=== PATIENT | female | born 1990 | race Caucasian/White ===

== ENCOUNTER 2016-06-15 13:09 | Inpatient (IN) | payer SELFPAY ==
[~2016-06-15 13:09] MED LIST: XYLOCAINE-MPF 2% ONE
[2016-06-15] MEDS ORDERED: NS 1,000 ML IV ONE (14:05)
[2016-06-15 14:06] LABS: HEMATOCRIT 37.3 % (37.0-47.0); HEMOGLOBIN 12.7 g/dL (12.0-16.0); MANUAL DIFF NEEDED? YES; MCH 32.4 PG (27-31); MCV 95.2 FL (81-99); MPV 11.6 FL (7.4-10.4); PLT 82 X1000 (130-400); RBC 3.92 XMIL (4.2-5.4)
[2016-06-15 14:08] LABS: BANDS 26 % (0-1); LYMPHS 2 % (21-51); NRBC 1 % (0-0)
[2016-06-15 14:14] LABS: CALCIUM 9.4 mg/dL (8.8-10.2)
[2016-06-15 15:17] LABS: ALBUMIN 4.1 g/dL (3.5-5.0); POTASSIUM 4.1 mmol/L (3.5-5.1); TOTAL BILIRUBIN 0.34 mg/dL (0.20-1.00); TOTAL PROTEIN 8.9 g/dL (6.3-8.3)
[2016-06-15 15:33] LABS: URINE SOURCE CLEAN CATCH
[2016-06-15 15:48] LABS: BILIRUBIN URINE SMALL (NEGATIVE); BLOOD URINE TRACE (NEGATIVE); COLOR YELLOW; GLUCOSE URINE NEGATIVE (NEGATIVE); LEUKOCYTES URINE NEGATIVE (NEGATIVE); NITRITE URINE NEGATIVE (NEGATIVE); PH URINE 5.5; PROTEIN URINE 50 mg/dL (NEGATIVE); SP GRAVITY URINE 1.038; TURBIDITY URINE HAZY (CLEAR); URINE MICRO REVIEW NEEDED? YES; UROBILINOGEN URINE 4 mg/dL (NORMAL)
[2016-06-15 15:56] LABS: UR EPITHELIAL CELLS >10 /HPF (<10); URINE BACTERIA 3+ /HPF; URINE CULTURE NEEDED? YES
[2016-06-15] MEDS ORDERED: ROCEPHIN 1 GM/NS 50 ML IV ONE (15:58)
[2016-06-15 16:11] LABS: URINE CASTS GRANULAR PRESENT
--- NOTE | 2016-06-15 16:55 | PROVIDER DOCUMENTATION ---
HPI-Abdominal Pain/GI Problem - General Chief Complaint: Abdominal Pain Stated Complaint: GENERALIZED PAIN Time Seen by Provider: 06/15/16 15:45 Source: patient Allergies/Adverse Reactions: Patient Allergies Allergy/AdvReac Type Severity Reaction Status Date / Time ketorolac tromethamine * Allergy HIVES Verified 06/15/16 16:01 [From Toradol] meperidine HCl * Allergy ANAPHYLAXIS Verified 06/15/16 16:01 [From Demerol] metoclopramide HCl * Allergy ANAPHYLAXIS Verified 06/15/16 16:01 [From Reglan] morphine Allergy HIVES Verified 06/15/16 16:01 ondansetron HCl * Allergy ANAPHYLAXIS Verified 06/15/16 16:01 [From Zofran (as hydrochloride)] nalbuphine HCl * AdvReac NAUSEA/VOMI Verified 06/15/16 16:01 [From Nubain] TING Home Medications: Alprazolam [Xanax] 1 mg PO BID 06/15/16 Clonidine [Catapres] 0.3 mg PO TID 06/15/16 Dasatinib [Sprycel] 100 mg PO QAM 06/15/16 Divalproex [Depakote] 500 mg PO BID 06/15/16 Gabapentin [Neurontin] 600 mg PO TID 06/15/16 Tramadol [Ultram] 50 mg PO TID 06/15/16 - History of Present Illness-ABD Nature of Presenting Problems: Pt is 26 y/o F presents to the ED with LUQ and LLQ pain. Pt states N but no V. 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 Pt states taking chemo pills for 4 years. Pt states pain has been present for 2 days. Abdominal Pain Onset Location: reports: LUQ, LLQ Pain Radiation: reports: no radiation Quality of Pain: reports: cramping Severity in ED: reports: moderate Onset/Duration: reports: 2 days ago Timing: reports: still present, intermittent Activities at Onset: reports: light activity Exposure to sick contacts?: No Modifying Factors: improves with: nothing Associated Symptoms: reports: loss of appetite, nausea, weakness. denies: anxiety, arm pain, back/neck pain, chest pain, constipation, cough, diaphoresis , diarrhea, dizziness, EENT symptoms, fatigue, fever/chills, genitourinary problems, headaches, heartburn, joint pain, malaise, muscle aches, sinus congestion/drainage, rash, seizure, shortness of breath, sensory/motor loss, pain with inspiration, swelling/mass in abdomen, syncope, vomiting, trouble walking Last BM: unsure Dark Stools Present?: reports: none noticed Rectal Bleeding: reports: none Rectal Pain: reports: none Emesis Description: reports: none Bruising or Bleeding Gums?: No Similar Symptoms Previously?: Yes Recently seen or treated by another doctor?: No Review of Systems - Adult - REVIEW OF SYSTEMS - ADULT Constitutional: denies: chills, fever Eyes: denies: blurred vision, double vision Ears, Nose, Mouth & Throat: denies: ear pain, nose pain, throat pain Cardiovascular: reports: irregular heart rate (tachy). denies: chest pain, heart murmur Respiratory: denies: cough, shortness of breath, wheezing Gastrointestinal: reports: abdominal pain (LUQ and LLQ), nausea, poor appetite. denies: diarrhea, vomiting Genitourinary: denies: dysuria, hematuria Musculoskeletal: denies: bone pain, joint pain, neck pain Integumentary: denies: hives, itching Neurological: denies: dizziness/vertigo, headache/migraines Psychiatric: reports: no symptoms reported Endocrine: reports: no symptoms reported Hematologic/Lymphatic: reports: no symptoms reported Allergic/Immunologic: reports: no symptoms reported All Other Systems: Reviewed and Negative Past History - Adult - PAST MEDICAL HISTORY-ADULT Review of Records: reports: Nursing Assessment Review, Medications Reviewed, Social history reviewed & non-contributory. Major Childhood Illnesses: reports: denies history Cardiovascular: reports: HTN Respiratory: reports: denies history Gastrointestinal: reports: denies history Obstetrical/Gynecological: reports: ovarian cysts Genitourinary: reports: kidney disease (congenital missing right kidney) Musculoskeletal: reports: denies history Neurological: reports: Seizures/Epilepsy Psychiatric: reports: depression Endocrine/Immune: reports: Diabetes, Leukemia (CML) Other Conditions: reports: denies history - PRIOR SURGERIES/PROCEDURES Surgical/Procedure History: reports: appendectomy, tonsillectomy, other (BONE MARROW BIOPSY) - IMMUNIZATION STATUS Childhood Immunizations: See Nurse Assessment Flu Vaccine: See Nurse Assessment - FAMILY HISTORY Family History: reviewed, not pertinent - SOCIAL HISTORY Smoking: cigarettes, less than 1 pack/day Provider spent 3-5 mins advising pt. on dangers of tobacco.: Discussed manners to quit use, and f/u contacts for add'l counseling. Substance Use: denies Living Situation: family Physical Exam-General - PHYSICAL EXAM-ADULT Initial Vital Signs Reviewed: Yes - CONSTITUTIONAL General Appearance: appears well, alert, moderate distress - EYES Eyes: PERRL/EOMI, pink conjunctivae - HEAD, EARS, NOSE, MOUTH & THROAT HENMT: normocephalic/atraumatic, moist mucous membranes, normal ENT inspection - NECK Neck: non-tender, full range of motion, supple, normal inspection - RESPIRATORY Respiratory: chest non-tender, lungs clear, normal breath sounds - CARDIOVASCULAR Cardiovascular: normal peripheral pulses, no edema, tachycardia - GASTROINTESTINAL (ABDOMEN) Abdominal Exam: normal bowel sounds, soft, tenderness (LUQ and LLQ) - LYMPHATIC Lymphatic: no adenopathy - MUSCULOSKELETAL Back Exam: normal inspection, no CVA tenderness, no vertebral tenderness Extremity: normal range of motion, non-tender, normal gait - SKIN Integumentary: normal color, normal turgor, warm/dry - NEUROLOGIC Neurologic: 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 II-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 nml as tested, grossly normal, no motor/sensory deficits - PSYCHIATRIC Psych/Mental Status: normal mood/affect, normal thought content, normal thought process, oriented x 3 Progress - PLAN OF CARE/RESULTS Progress/Plan/Lab Results: Laboratory Tests 06/15/16 06/15/16 06/15/16 13:37 13:37 15:27 WBC 497.52 H* RBC 3.92 L Hgb 12.7 Hct 37.3 MCV 95.2 MCH 32.4 H MCHC 34.0 RDW Std Deviation 18.2 H Plt Count 82 L MPV 11.6 H Neut % (Auto) Not Reportable Lymph % (Auto) Not Reportable Gaston % (Auto) Not Reportable Eos % (Auto) Not Reportable Baso % (Auto) Not Reportable Neut # Not Reportable Lymph # Not Reportable Gaston # Not Reportable Eos # Not Reportable Baso # Not Reportable Segmented Neutrophils 14 L Band Neutrophils 26 H Lymphocytes 2 L Metamyelocytes 14.0 Myelocytes 18.0 Nucleated RBCs 1 H Pathologist Review Unidentified Cells 26.0 Sodium 138 Potassium 4.1 Chloride 98 Carbon Dioxide 19 L Anion Gap 21 BUN 16 Creatinine 1.2 H Estimated GFR/1.73 m2 54 BUN/Creatinine Ratio 13 Glucose 96 Calculated Osmolality 277 Calcium 9.4 Total Bilirubin 0.34 AST 30 ALT 13 Alkaline Phosphatase 112 H Total Protein 8.9 H Albumin 4.1 Globulin 4.8 Albumin/Globulin Ratio 0.9 Amylase 30 Lipase 9 L Urine Source CLEAN CATCH Urine Color YELLOW Urine Turbidity HAZY Urine pH 5.5 Ur Specific Dahlen 1.038 Urine Protein 50 A Ur Glucose (Stick) NEGATIVE Ur Ketones (Stick) TRACE A Urine Blood TRACE A Urine Nitrite NEGATIVE Urine Bilirubin SMALL A Urobilinogen Dipstick 4 A Urine Leukocytes NEGATIVE Urine WBC (Auto) 10-20 A Urine RBC (Auto) 10-20 A U Epithel Cells (Auto) >10 A Urine Bacteria (Auto) 3+ Urine Crystals Not Reportable Small Round Cells Not Reportable Urine Casts GRANULAR PRESENT Urine Yeast-like Cells Not Reportable Urine Test 06/15/16 15:27 WBC RBC Hgb Hct MCV MCH MCHC RDW Std Deviation Plt Count MPV Neut % (Auto) Lymph % (Auto) Gaston % (Auto) Eos % (Auto) Baso % (Auto) Neut # Lymph # Gaston # Eos # Baso # Segmented Neutrophils Band Neutrophils Lymphocytes Metamyelocytes Myelocytes Nucleated RBCs Pathologist Review Unidentified Cells Sodium Potassium Chloride Carbon Dioxide Anion Gap BUN Creatinine Estimated GFR/1.73 m2 BUN/Creatinine Ratio Glucose Calculated Osmolality Calcium Total Bilirubin AST ALT Alkaline Phosphatase Total Protein Albumin Globulin Albumin/Globulin Ratio Amylase Lipase Urine Source Urine Color Urine Turbidity Urine pH Ur Specific Dahlen Urine Protein Ur Glucose (Stick) Ur Ketones (Stick) Urine Blood Urine Nitrite Urine Bilirubin Urobilinogen Dipstick Urine Leukocytes Urine WBC (Auto) Urine RBC (Auto) U Epithel Cells (Auto) Urine Bacteria (Auto) Urine Crystals Small Round Cells Urine Casts Urine Yeast-like Cells Urine Test NEGATIVE Orders Category Date Time Status IV [Saline Loc] NOW Care 06/15/16 14:05 Active Saline Loc DIRECTED Care 06/15/16 13:25 Active NPO Diet 06/15/16 13:[address] ABD/PELVIS W/ IV CONT ONLY [CT] Stat Exams 06/15/16 14:03 Ordered AMYLASE [CHEM] Stat Lab 06/15/16 13:37 Completed CBC WITH ELECTRONIC DIFF [HEME] Stat Lab 06/15/16 13:37 Completed COMPREHENSIVE METABOLIC PANEL [CHEM] Stat Lab 06/15/16 13:37 Completed LIPASE [CHEM] Stat Lab 06/15/16 13:37 Completed TEST-URINE [PREG] Stat Lab 06/15/16 15:27 Completed URINALYSIS W/POSS RFLX CULT [URINALYSIS] Stat Lab 06/15/16 15:27 Completed URINE MANUAL MICROSCOPIC [URINALYSIS] Stat Lab 06/15/16 15:27 Completed 0.9% Sodium Chloride Inj [Ns] 1,000 ml Med 06/15/16 14:05 Discontinued IV 999 mls/hr CefTRIAXONE 1 GM/NS [Rocephin 1 gm/Ns] 50 ml Med 06/15/16 15:58 Discontinued IV NOW Vital Signs - 24 hr 06/15/16 13:23 Temperature 98.5 F Pulse Rate 131 H Respiratory 20 Rate Blood Pressure 137/89 O2 Sat by Pulse 98 Oximetry - CT/MRI 1 CT Study: Abdomen, Pelvis Impression: Abnormal CT Results: constipation, improved splenomegally since 06/28/2015 - CONSULTS/PCP/HOSPITALIST Notification #1 *Consult/PCP/Hospitalist*: Dr. Rico Time Discussed: 17:08 (Dr. Rico accept admit ) Reason/Comments: Dr. Cobos consults with Dr. Rico about admit of PT Consult Disposition: Admit Departure - Departure Time of Disposition Order: 16:59 DIAGNOSIS: Dehydration Leukemia Qualifiers: Leukemia type: unspecified Leukemia Active/Remission status: without remission Qualified Code(s): C95.90 - Leukemia, unspecified not having achieved remission UTI (urinary tract infection) Qualifiers: Urinary tract infection type: site unspecified Hematuria presence: without hematuria Qualified Code(s): N39.0 - Urinary tract infection, site not specified Increased white blood cell count Qualifiers: Leukocytosis type: unspecified Qualified Code(s): D72.829 - Elevated white blood cell count, unspecified Disposition: ADMITTED INPATIENT 09 Certified Medical Emergency: Emergent Condition: Stable Additional Instructions: ED Follow Up Instructions: You have been treated by a care provider in the Emergency Department. These instructions are being provided to you so you can have an understanding of how to care for yourself upon discharge. Upon discharge from the Emergency Department, you are responsible for making arrangements for follow-up care by a physician of your choice. Take all prescribed medications as directed. Return to the Emergency Department immediately for any new or worsening symptoms. You may call the Physician Referral phone number at [phone] to obtain a list of Physicians who are taking new patients. Referrals: None,PCP [Primary Care Provider] - Attestation - Scribe Verification/Attestation Scribe:: Abbey Edwards Acting as Scribe for:: Hillary Cobos Scribe documention review:: This chart was documented by a scribe and accurately reflects the service the provider performed and the decisions made by the provider.
[2016-06-15] MEDS ORDERED: PHENERGAN IV ONE (17:01)
[2016-06-15] MEDS ORDERED: SODIUM CHLORIDE 0.9% INJ ONE (17:01)
[2016-06-15] MEDS ORDERED: PHENERGAN ONE (17:02)
[2016-06-15] MEDS ORDERED: DILAUDID IV ONE (17:33)
[2016-06-15] MEDS ORDERED: DILAUDID ONE (17:34)
[2016-06-15] MEDS ORDERED: PHENERGAN IV PRN (18:32)
[2016-06-15] MEDS ORDERED: SODIUM CHLORIDE 0.9% INJ PRN (18:32)
[2016-06-15] MEDS ORDERED: RELISTOR SUBQ ONE (18:36)
[2016-06-15 19:08] LABS: INR 1.14; PROTIME 12.1 Seconds (9.2-11.7)
[2016-06-15 19:15] LABS: MAGNESIUM 2.5 mg/dL (1.5-2.7)
[2016-06-15] MEDS: OFIRMEV 1000 MG/ISOTONIC SOLN 100 ML IV SCH (19:20)
[2016-06-15] MEDS: NS 1,000 ML IV SCH (19:20)
--- NOTE | 2016-06-15 19:30 | Diag Imaging Result Document ---
PROCEDURE NAME: CT ABD/PELVIS W/ IV CONT ONLY - 06/15/2016 FINDINGS: There is minimal subsegmental atelectasis present in the lung bases. This is actually improved in some respect since the previous study of 07/04/2015. The spleen is enlarged measuring over 16cm in dimension. This is actually improved from the almost 18 cm seen on 07/04/2015. There is a fair amount of stool present in the colon. The adrenal glands, pancreas, and left kidney are stable in appearance. There is no evidence of cholelithiasis. There is no evidence of abdominal aortic aneurysm and the mesenteric arteries are patent. The liver is unremarkable in appearance. CT CT of the pelvis with intravenous contrast: There has been previous appendectomy. There is solid stool in the rectum. There are surgical clips on the right side of the pelvis. There is a left ovarian cyst measuring 3.8 cm in diameter. This is slightly larger than the cyst present on the previous study of 06/28/2015, which was 2.8 cm in greatest dimension. There is no significant free fluid. IMPRESSION: 1. Constipation. 2. Improved splenomegaly. [facility]
--- NOTE | 2016-06-15 19:34 | Diag Imaging Result Document ---
PROCEDURE NAME: CHEST-PORTABLE - 06/15/2016 PROCEDURE TIME: 17:20 hours FINDINGS: Normal chest.
[2016-06-15] MEDS: MAXIPIME 1 GM/NS 50 ML IV SCH (20:00)
--- NOTE | 2016-06-15 20:04 | PROGRESS NOTE ---
DATE: 06/15/2016 PRIMARY CARE PHYSICIAN: None. HEMATOLOGY/ONCOLOGY: Used to be Jimmie Weinstein MD. PRESENTING COMPLAINT: Abdominal pain, nausea and vomiting. HISTORY OF PRESENTING COMPLAINT: Ms. Maurice is a 26-year-old female, with a diagnosis of CML who used to follow up with Dr. Weinstein until about just 5 months ago she left to [place] where according to her she was admitted in to the [facility] in the month of April. Subsequently she was able to see Dr. Berman, but she could not get an outpatient follow up with Dr. Berman who is a research psychologist-oncologist before she moved back here to [place] with her sisters just about a week ago. According to her, since she moved back she has been having ongoing epigastric to lower abdomen pain which has been excruciating for the past 2 days on and off. There is not any alleviating symptoms. Patient refers that the pain is always 10/10. Associated with that there is also some nausea and vomiting constantly according to her. She denies any fever and she also says she has burning when she passes her urine. PAST MEDICAL HISTORY: 1. Chronic myeloid leukemia diagnosed in 2012. 2. Hypertension. 3. Depression. 4. Ovarian cyst. 5. Fibromyalgia. 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 PREVIOUS SURGERY: 1. Tonsillectomy. 2. Bone marrow aspirations. 3. Appendectomy. 4. PICC line placement and removals. ALLERGIES: Toradol, Demerol, Reglan, Zofran and Nubain. MEDICATIONS AT HOME: 1. Depakote. 2. Alprazolam. 3. Tramadol. 4. Gabapentin. 5. Catapres. 6. Sprycel. SOCIAL HISTORY: Patient used to live with her grandparents, but she is currently living with her sisters. She used to smoke 1-1/2 pack cigarettes per day for over 10 years but is down to about a half a pack a day. Denies any current illicit drug use. However, she has tried cocaine and weed before. FAMILY HISTORY: Unremarkable. REVIEW OF SYSTEMS: 12 point review of system conducted with the patient. Unremarkable except what we have in the HPI. Specifically the patient denies any fever, any chills, any sore throat, any cough or sputum production or any chest pain. PHYSICAL EXAMINATION: General: Ms. Maurice is a 26-year-old female. She is in bed. She did not seems to be in any distress. Vitals: Blood pressure is 137/89, pulse of 131, respirations 20, temperature 98.5 degrees. HEENT: Mucosa is dry, anicteric and acyanotic. Neck: Supple. Chest: Clear. Cardiovascular: Regular rate and rhythm. Abdomen: Soft, is mildly tender in the lower left quadrant. Extremities: No pedal edema. No hepatosplenomegaly. ALTERATION HAND: Patient is alert and oriented. Cranial nerves 2-12 are grossly examined, unremarkable. Cortical function seems to be intact. Reflexes and power bilaterally normal. LABORATORY DATA: WBC is 497.5, hemoglobin is 12.7, platelet count is 82,000. There is 4% of neutrophils. 26% of bands. Lymphocyte is 2%. Metamyelocyte is 14, myelocyte is 18. IMAGING STUDIES: A chest x-ray has been done, is unremarkable. We are still pending official report on that. A CT scan of the abdomen and pelvis shows constipation as well as absence of the right kidney, but no obvious obstruction. We are still pending official report on this. ASSESSMENT: Ms. Maurice is a 26-year-old female, with a history of chronic myeloid leukemia who presented with abdominal pain, nausea and vomiting. 1. Chronic myelogenous leukemia, probably in accelerated versus blast phase. 2. Intractable abdominal pain. 3. P.O. intolerance. 4. History of hypertension. 5. Depression. 6. Suspected urinary tract infection. 7. Severe constipation, likely due to narcotic gut. 8. Chronic pain syndrome. PLAN: 1. We are going to admit the patient to the medical floor. Aggressive hydration, we will blood culture the patient, we will start the patient empirically on antibiotics to prevent any infection since these plentiful white cells are actually very defective and they might not be protecting her. We will consult Hematology/Oncology, specifically Dr. Parisi who is the one that the patient has requested to evaluate her. If she is able to tolerate p.o. we will give her Sprycel. 2. We will address her constipation with symptomatic management. We will also give a dose of naproxen.
[2016-06-15] MEDS: XANAX PO SCH (20:20)
[2016-06-15] MEDS: MIRALAX PO SCH (20:20)
[2016-06-15] MEDS: CATAPRES PO SCH (20:23)
[2016-06-16] MEDS: OFIRMEV 1000 MG/ISOTONIC SOLN 100 ML IV SCH ×2 (00:29→05:46)
[2016-06-16] MEDS: DILAUDID IV PRN ×5 (00:40→20:02)
[2016-06-16] MEDS: NS 1,000 ML IV SCH ×3 (04:06→18:33)
[2016-06-16 07:21] LABS: AGAP 10; ALBUMIN 3.6 g/dL (3.5-5.0); ALKALINE PHOSPHATASE 84 U/L (32-104); BUN 12 mg/dL (8-22); CALCIUM 8.3 mg/dL (8.8-10.2); CHLORIDE 106 mmol/L (98-107); COSMO 277; GOT 25 U/L (10-30); GPT 14 U/L (10-36); POTASSIUM 3.2 mmol/L (3.5-5.1); SODIUM 139 mmol/L (136-145); TCO2 24 mmol/L (25-35); TOTAL PROTEIN 6.9 g/dL (6.3-8.3)
[2016-06-16 07:46] LABS: HEMATOCRIT 34.1 % (37.0-47.0); HEMOGLOBIN 11.3 g/dL (12.0-16.0); MANUAL DIFF NEEDED? YES; MCH 31.8 PG (27-31); MCHC 33.1 g/dL (33-37); MCV 96.1 FL (81-99); MPV 10.7 FL (7.4-10.4); PLT 58 X1000 (130-400); RBC 3.55 XMIL (4.2-5.4)
[2016-06-16 08:00] LABS: INR 1.17 (0.86-1.15); PROTIME 15.2 Seconds (12.1-15.5)
[2016-06-16] MEDS ORDERED: CATAPRES PO SCH (08:00)
[2016-06-16 08:01] LABS: PTT PL 29.2 Seconds (22.6-43.9)
[2016-06-16] MEDS ORDERED: SPRYCEL PO SCH ×2 (09:00→09:15)
[2016-06-16] MEDS ORDERED: NEURONTIN PO SCH (09:00)
[2016-06-16] MEDS: MIRALAX PO SCH (09:01)
[2016-06-16] MEDS: XANAX PO SCH ×3 (09:01→20:02)
[2016-06-16] MEDS: CATAPRES PO SCH ×4 (09:01→20:01)
[2016-06-16 09:27] LABS: BANDS 13 % (0-1); EOS 4 % (1-10); LYMPHS 1 % (21-51); MONO 4 % (1-9); NRBC 1 % (0-0)
[2016-06-16] MEDS: MAXIPIME 1 GM/NS 50 ML IV SCH ×3 (10:00→20:00)
[2016-06-16] MEDS: NEURONTIN PO SCH ×3 (10:32→18:02)
[2016-06-16] MEDS ORDERED: OFIRMEV 1000 MG/ISOTONIC SOLN 100 ML IV SCH (12:45)
[2016-06-16 14:12] LABS: FLOW CYTOMETERY SOURCE WHOLE BLOOD; LEUKEMIA LYMPHOMA BY FLOW REFERRED FOR TESTING
[2016-06-16] MEDS: PHENERGAN IV PRN (16:19)
[2016-06-16] MEDS: SODIUM CHLORIDE 0.9% INJ PRN (16:19)
--- NOTE | 2016-06-16 16:58 | PROGRESS NOTE ---
DATE: 06/16/2016 SUBJECTIVE: The patient is still complaining of pain. She is on pain medicine every 4 hours. No other focal complaints. OBJECTIVE: Vital Signs: Blood pressure 151/95, heart rate 107, respiratory rate 18, temperature 98.1 degrees. General: A well-developed female in no acute distress. Head Examination: Normocephalic, atraumatic. Eye Examination: Pupils equal, round, reactive to light. Extraocular movements were intact. Ear, nose, throat Examination: Moist mucous membranes. Neck Examination: Supple. Cardiovascular examination: Regular rate and rhythm. No murmurs, gallops, or rubs. Pulmonary examination: Bilateral breath sounds, clear to auscultation. Gastrointestinal: Soft, nontender, nondistended. Bowel sounds are positive. PROBLEM LIST: 1. Accelerated versus blast crisis of CML. We are continuing hydration. She is on Sprycel. Dr. Parisi is following at this point. She may not need a bone marrow biopsy to evaluate for blast crisis but we will monitor for the next day or 2. Flow cytometry is pending. BCR-ABL gene mutation is pending. 2. UTI. Continue antibiotics. 3. Constipation. Continue bowel regimen. We will continue to follow very closely.
--- NOTE | 2016-06-16 17:12 | CONSULTATION ---
DATE OF CONSULTATION: 06/16/2016 REASON FOR CONSULTATION: Leukemia. Patient seen in consultation at request of Dr. Estrada. HISTORY OF PRESENT ILLNESS: Debora is a 25-year-old, woman who is known to Dr. Weinstein for a history of CML. She had been down to [place] earlier in 2015 and returned to this area to be with her sister's within the past week. Apparently she was hospitalized in [place] in April and never got the patient follow up with a doctor there. Upon questioning, she reports that she has been taking her Sprycel approximately 1/3 of the time because of associated nausea and abdominal pain when she takes her medications. She presented to the emergency room with fevers and dysuria and was found to have a urinary tract infection for which she is being treated currently. She also noted fevers, chills, night sweats, weight loss, and increased fatigue at home over the last few weeks. PAST MEDICAL HISTORY: Notable for depression, hypertension and CML. SURGICAL HISTORY: Notable for multiple bone marrow biopsies as well as a tonsillectomy. SOCIAL HISTORY: Patient is a smoker, has recently moved back to the area to be with her sister's. She denied alcohol or illicit drug use. FAMILY HISTORY: Noncontributory. ALLERGIES: Reviewed per the chart and notable for morphine, Demerol, Toradol, Reglan, Zofran and Nubain. MEDICATIONS: Reviewed per the chart as well. REVIEW OF SYSTEMS: Pertinent positives and negatives as per HPI. All other review of systems are negative. PHYSICAL EXAMINATION: Vital signs: At the time of consultation, the patient temperature was 98.5 degrees, pulse 71, respiratory rate 18, blood pressure 151/95, O2 saturation 98 % on room air. General: This is a chronically ill-appearing, woman who is in no acute distress, but is diaphoretic and appears older than her stated age. HEENT: Normocephalic, atraumatic. Pupils equal, round, react to light. Extraocular movements intact. Oropharynx is dry. Neck: Supple and symmetric with no lymphadenopathy. Cardiovascular: Regular rate and rhythm. Normal S1, S2. No murmurs, rubs, or gallops. Pulmonary: Lungs are clear to auscultation anteriorly bilaterally without wheezes, rales, or rhonchi. GI: Abdomen is soft, tender in the left upper quadrant with notable splenomegaly approximately 6 cm below the costal margin. Extremities: No clubbing, cyanosis, or edema. 2+ pulses x4. Neurologic: Alert orient x3. No focal deficit. LABORATORY DATA: At this time of consultation that was available, showed a white count that had dropped down from 450,000 to 342.000 overnight. Hemoglobin 11.3, platelet count 58,000. INR 1.17. Differential on the CBC showed 32% segmentals, 13% bands, 1% lymphocytes , 4% monocyte, 4% eosinophils, 6% metamyelocytes, 35% myelocytes. Urine culture positive for gram -negative rods. ASSESSMENT AND PLAN: this is a 25-year-old woman with: 1. Chronic myeloid leukemia. I discussed with her the overall poor prognosis of inadequately treated chronic myeloid leukemia. It is unclear whether she is in chronic phase untreated versus blast phase or accelerated stage. She understands that she will need a bone marrow biopsy, but wishes to defer that at this time. I will send PCR for bcr-abl at this time as well as flow cytometry. I will not send mutation testing at this time as she has not been taking her medications adequately. We will start her on allopurinol and Hydrea to manage her leukocytosis if her platelet count will allow. 2. Urinary tract infection. She continues on antibiotics at this time. Monitor for improvement in her symptoms. 3. Social situation with difficulty with medications. We will consult social welfare research worker. 4. Nausea. She will continue on antibiotics at this time and we will have a prescription for Compazine and Phenergan at discharge to use as needed. Again, I stressed the importance of taking her medication and establishing followup for her chronic myeloid leukemia. We will follow along and make further recommendations as hospital course dictates. [facility]
[2016-06-16] MEDS: NICODERM PATCH TD PRN (18:28)
[2016-06-16] MEDS: SODIUM CHLORIDE 0.9% INJ SCH (18:28)
[2016-06-16] MEDS: PROTONIX IV SCH (18:28)
[2016-06-17] MEDS: PHENERGAN IV PRN ×2 (02:09→17:16)
[2016-06-17] MEDS: DILAUDID IV PRN ×6 (02:10→21:29)
[2016-06-17] MEDS: SODIUM CHLORIDE 0.9% INJ SCH ×2 (02:10→17:03)
[2016-06-17] MEDS: NS 1,000 ML IV SCH ×4 (04:05→17:12)
[2016-06-17 06:45] LABS: EOS# 4.87 X1000 (0.0-0.7); EOS% 1.4 % (0.0-10.0); HEMATOCRIT 29.8 % (37.0-47.0); LYMPH# 13.15 X1000 (1.2-3.4); LYMPH% 3.8 % (20.5-51.1); MANUAL DIFF NEEDED? YES; MCH 31.9 PG (27-31); MCHC 33.6 g/dL (33-37); MCV 95.2 FL (81-99); MONO% 8.6 % (1.7-9.3); MPV 10.3 FL (7.4-10.4); PLT 58 X1000 (130-400); RBC 3.13 XMIL (4.2-5.4)
[2016-06-17 06:56] LABS: AGAP 10; BUN 10 mg/dL (8-22); CALCIUM 8.2 mg/dL (8.8-10.2); CHLORIDE 108 mmol/L (98-107); COSMO 279; POTASSIUM 3.2 mmol/L (3.5-5.1); SODIUM 140 mmol/L (136-145); TCO2 22 mmol/L (25-35)
[2016-06-17] MEDS: NEURONTIN PO SCH ×3 (09:06→17:03)
[2016-06-17] MEDS: CATAPRES PO SCH ×3 (09:06→21:30)
[2016-06-17] MEDS: XANAX PO SCH ×2 (09:07→21:30)
[2016-06-17] MEDS: MAXIPIME 1 GM/NS 50 ML IV SCH ×2 (09:07→21:29)
[2016-06-17] MEDS: MIRALAX PO SCH (09:07)
[2016-06-17] MEDS: PATIENT'S OWN MED PO SCH (09:07)
[2016-06-17 09:16] LABS: BANDS 15 % (0-1); EOS 3 % (1-10); LYMPHS 4 % (21-51); MONO 1 % (1-9); NRBC 2 % (0-0)
[2016-06-17] MEDS ORDERED: SENSORCAINE-MPF 0.5%/EPI 1:200,000 INJ ONE (12:22)
[2016-06-17] MEDS: ZYLOPRIM PO SCH ×2 (13:37→21:30)
--- NOTE | 2016-06-17 13:46 | PROGRESS NOTE ---
DATE: 06/17/2016 SUBJECTIVE: The patient still complains of pain, although she states that her pain is less. She continues to require Dilaudid every 4 hours. OBJECTIVE: Vital signs: Blood pressure is 139/84 with a heart rate of 110. Respirations are 18. Temperature is 98.9 degrees orally with room air saturations of 100%. LABORATORIES: WBC is 344.99 with hemoglobin 10, hematocrit 29.8, platelets of 58,000. Sodium is 140, potassium 3.2, BUN 10, creatinine 0.8, with a glucose of 103. Cytometry and flow cytology pending. ASSESSMENT AND PLAN: 1. Accelerated versus blast crisis of chronic myeloid leukemia. We are continuing hydration. Continue her Sprycel. Dr. Parisi is following along with us. Flow cytometry is pending. BCR/ABL gene mutation is pending. 2. Urinary tract infection. We will continue antibiotics. Urine cultures revealed Escherichia coli colonization number 1 and number 2. They are both pansensitive. Number 1 and number 2 are sensitive to cefazolin, so we will continue with her Rocephin. 3. Constipation. We will continue her bowel regimen. Dictated by LONG Verdin for Jean-Claude Estrada MD
[2016-06-17] MEDS: PROTONIX IV SCH (17:03)
[2016-06-17] MEDS: NICODERM PATCH TD PRN (17:04)
[2016-06-17] MEDS: SODIUM CHLORIDE 0.9% INJ PRN (17:16)
[2016-06-18] MEDS: NS 1,000 ML IV SCH ×3 (00:56→17:44)
[2016-06-18] MEDS: DILAUDID IV PRN ×8 (00:58→22:55)
[2016-06-18] MEDS: POTASSIUM CHLORIDE 20 MEQ/SWI 100 ML IV SCH ×2 (03:51→06:26)
[2016-06-18 08:29] LABS: AGAP 8; BUN 10 mg/dL (8-22); CALCIUM 7.9 mg/dL (8.8-10.2); CHLORIDE 107 mmol/L (98-107); COSMO 276; POTASSIUM 3.5 mmol/L (3.5-5.1); SODIUM 139 mmol/L (136-145); TCO2 24 mmol/L (25-35)
[2016-06-18 08:42] LABS: HEMATOCRIT 30.2 % (37.0-47.0); HEMOGLOBIN 10.1 g/dL (12.0-16.0); MANUAL DIFF NEEDED? YES; MCH 31.9 PG (27-31); MCHC 33.4 g/dL (33-37); MCV 95.3 FL (81-99); MPV 10.3 FL (7.4-10.4); PLT 53 X1000 (130-400); RBC 3.17 XMIL (4.2-5.4)
[2016-06-18] MEDS: ZYLOPRIM PO SCH ×2 (09:18→21:11)
[2016-06-18] MEDS: NEURONTIN PO SCH ×3 (09:18→16:34)
[2016-06-18] MEDS: MIRALAX PO SCH (09:18)
[2016-06-18] MEDS: XANAX PO SCH ×2 (09:19→21:11)
[2016-06-18] MEDS: MAXIPIME 1 GM/NS 50 ML IV SCH ×2 (09:19→21:11)
[2016-06-18] MEDS: CATAPRES PO SCH ×3 (09:19→21:11)
[2016-06-18 09:34] LABS: BANDS 6 % (0-1); LYMPHS 12 % (21-51); METAMYELOCYTES 9 %; MONO 4 % (1-9)
[2016-06-18 09:35] LABS: NRBC 2 % (0-0)
[2016-06-18] MEDS: PATIENT'S OWN MED PO SCH (10:53)
[2016-06-18] MEDS: PHENERGAN IV PRN (13:52)
[2016-06-18] MEDS: PROTONIX IV SCH (16:34)
--- NOTE | 2016-06-18 21:52 | PROGRESS NOTE ---
DATE: 06/18/2016 SUBJECTIVE: Patient without complaints. Interestingly last night she had complaint of nausea and then 5-10 minutes after getting Zofran she was asking for a sandwich, soft drink, etc. This morning she states her nausea is a little bit better. She denies any current pain. OBJECTIVE: Vital Signs: Temperature 97 degrees, pulse 75, respiratory 20, BP 151/90. Saturating 100% on room air. General: The patient is well-developed, in no distress. She is awake, alert, oriented. Neck: Supple. Cardiovascular: Regular rate. Chest: Relatively clear. Abdomen: Soft. DIAGNOSTIC DATA: WBC 302.69. Calcium 7.9. ASSESSMENT: 1. Hypocalcemia. 2. 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 Dr. Parisi is following. She will continue Sprycel. 3. Urinary tract infection growing E. coli, pansensitive. PLAN: We will continue antibiotics for her E. coli. She currently is on cefepime. We will continue this until Dr. Parisi no longer feels antibiotics for her leukemia is necessary. We will follow up with biopsy in the a.m. of her bone marrow.
[2016-06-19] MEDS: NS 1,000 ML IV SCH ×5 (02:36→20:05)
[2016-06-19] MEDS: DILAUDID IV PRN ×8 (02:42→22:56)
[2016-06-19] MEDS ORDERED: REGLAN IV ONE (07:31)
[2016-06-19] MEDS ORDERED: SODIUM CHLORIDE 0.9% INJ ONE (07:33)
[2016-06-19] MEDS ORDERED: PEPCID IV ONE (07:33)
[2016-06-19] MEDS ORDERED: XYLOCAINE 2% ONE (08:04)
[2016-06-19] MEDS ORDERED: FENTANYL ONE (08:08)
[2016-06-19] MEDS ORDERED: DIPRIVAN 1% ONE (08:08)
[2016-06-19] MEDS ORDERED: VERSED ONE (08:08)
[2016-06-19] MEDS ORDERED: KETAMINE (DOSE) ONE (08:09)
[2016-06-19] MEDS ORDERED: NS 1,000 ML ONE (08:22)
--- NOTE | 2016-06-19 09:26 | PROGRESS NOTE ---
DATE: 06/19/2016 SUBJECTIVE: Patient without any new complaints. States that she is not feeling great but nothing has really changed. OBJECTIVE: Vital signs: Temperature 98, pulse 88, respiratory 18, BP 143/92. General: Patient is well developed, well nourished. She is currently in no respiratory distress. She is awake, alert. She is sitting in the bed, talking on the phone. CV: Regular rate. Chest: Relatively clear. Abdomen: Soft, nondistended. Extremities: Moves all extremities. Neurologic: No changes. LABS: Currently pending. Reviewed from yesterday. ASSESSMENT: 1. Chronic myeloid leukemia with accelerated versus blast crisis. She is to have a bone marrow biopsy this morning. We will continue Sprycel. We will continue to follow per Dr. Parisi's direction. 2. Urinary tract infection. Continue antibiotics. It is dinh sensitive with Escherichia coli. PLAN: Per Dr. Parisi and her bone marrow biopsy.
[2016-06-19] MEDS: CATAPRES PO SCH ×3 (11:04→20:04)
[2016-06-19] MEDS: ZYLOPRIM PO SCH ×2 (11:04→20:05)
[2016-06-19] MEDS: XANAX PO SCH ×2 (11:04→20:04)
[2016-06-19] MEDS: NEURONTIN PO SCH ×3 (11:05→17:17)
[2016-06-19] MEDS: PATIENT'S OWN MED PO SCH (11:06)
[2016-06-19] MEDS: MIRALAX PO SCH (11:08)
[2016-06-19] MEDS: MAXIPIME 1 GM/NS 50 ML IV SCH ×2 (11:08→20:03)
[2016-06-19] MEDS: PROTONIX IV SCH (17:17)
[2016-06-19] MEDS: SODIUM CHLORIDE 0.9% INJ SCH (17:17)
[2016-06-20] MEDS: DILAUDID IV PRN ×4 (02:23→12:59)
[2016-06-20] MEDS: NS 1,000 ML IV SCH ×2 (04:14→11:11)
[2016-06-20 06:25] LABS: HEMATOCRIT 29.4 % (37.0-47.0); HEMOGLOBIN 9.7 g/dL (12.0-16.0); MANUAL DIFF NEEDED? YES; MCH 31.3 PG (27-31); MCV 94.8 FL (81-99); MPV 11.2 FL (7.4-10.4); PLT 51 X1000 (130-400)
[2016-06-20 07:03] LABS: AGAP 10; ALBUMIN 3.2 g/dL (3.5-5.0); ALKALINE PHOSPHATASE 60 U/L (32-104); BUN 9 mg/dL (8-22); CALCIUM 8.2 mg/dL (8.8-10.2); CHLORIDE 106 mmol/L (98-107); COSMO 277; GOT 28 U/L (10-30); GPT 19 U/L (10-36); POTASSIUM 3.5 mmol/L (3.5-5.1); SODIUM 139 mmol/L (136-145); TCO2 23 mmol/L (25-35); TOTAL PROTEIN 6.1 g/dL (6.3-8.3)
[2016-06-20 08:44] LABS: BANDS 22 % (0-1); LYMPHS 3 % (21-51); MONO 1 % (1-9); NRBC 1 % (0-0)
[2016-06-20 08:45] LABS: HYPOCHROM OCCASIONAL
[2016-06-20] MEDS: MAXIPIME 1 GM/NS 50 ML IV SCH (08:55)
[2016-06-20] MEDS: CATAPRES PO SCH ×2 (08:55→14:56)
[2016-06-20] MEDS: NEURONTIN PO SCH ×2 (08:56→14:55)
[2016-06-20] MEDS: ZYLOPRIM PO SCH (08:56)
[2016-06-20] MEDS: MIRALAX PO SCH (08:56)
[2016-06-20] MEDS: XANAX PO SCH (08:56)
[2016-06-20] MEDS: PATIENT'S OWN MED PO SCH (09:02)
[2016-06-20 10:24] LABS: FLOW CYTOMETERY SOURCE BONE MARROW; LEUKEMIA LYMPHOMA BY FLOW REFERRED FOR TESTING
[2016-06-20 15:46] VITALS: BP 139/89
[2016-06-20] MEDS ORDERED: PROTONIX PO SCH (21:00)
--- NOTE | 2016-06-22 22:01 | DISCHARGE SUMMARY ---
ADMISSION DATE: 06/15/2016 DISCHARGE DATE: 06/20/2016 PRIMARY CARE PHYSICIAN: None. HEMATOLOGY/ONCOLOGY: Previously was Dr. Weinstein and it will resume now that she has moved back to [place]. ADMISSION DIAGNOSES: 1. 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 2. Intractable abdominal pain. 3. P.o. intolerance. 4. Depression. 5. Suspected urinary tract infection. 6. Severe constipation most likely due to narcotic use. 7. Chronic pain syndrome. DISCHARGE DIAGNOSES: 1. 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 2. Intractable abdominal pain. 3. P.o. intolerance. 4. Depression. 5. Suspected urinary tract infection. 6. Severe constipation most likely due to narcotic use. 7. Chronic pain syndrome. SUMMARY OF FINDINGS: This is a 26-year-old female who had been diagnosed with CML and followed up with Dr. Weinstein until about 5 months ago when she moved to [place]. She was admitted to a [place] hospital in April had seen an oncologist around that time by the name of. Dr. Berman in the [place] area. She could not get an outpatient follow up with him before she moved back to [place] about a week ago where she moved in with her sister. Since she has moved back she has been having epigastric to lower abdominal pain which has been excruciating for the past 2 days intermittently, no alleviating symptoms. Patient refers that the pain is always 10/10 with some associated nausea and vomiting. Denied any fever. Says she has burning when she urinates. Workup in the ER showed a white blood cell count of 497.52. We consulted oncologist/passenger service representative who followed the patient. She mildly improved. We did a bone marrow biopsy on 06/20/2016. The peripheral blood smear was obtained. The patient on the day of discharge had a white blood cell count down to 255.24. Case discussed with Dr. Weinstein who has agreed to follow her outpatient and felt that she could safely be discharged home. DISCHARGE MEDICATIONS: We continued her home medications with no new prescriptions given at this time. Xanax 1 mg p.o. b.i.d., Catapres 0.3 mg p.o. t.i.d., Sprycel 100 mg p.o. q.a.m., Depakote 500 mg p.o. b.i.d., Neurontin 600 mg p.o. t.i.d. and Ultram 50 mg p.o. t.i.d. FOLLOWUP: She will follow with Dr. Weinstein this next week for further treatment for CML. 35-minute discharge. Dictated by LONG Barajas for Rikki Crum MD
== END 2016-06-20 16:06 | disposition home or self-care (01) | DRG 841 ==
LOC: ED 13:09 → EDIPHOLD 19:20 → P.MEDSURG 21:41
PROVIDERS: ATTEND Family Medicine
DX: C92.10 Chronic myeloid leukemia, BCR/ABL-positive, not having achieved remission (principal); Q60.0 Renal agenesis, unilateral; E86.0 Dehydration; N39.0 Urinary tract infection, site not specified; I10 Essential (primary) hypertension; E11.9 Type 2 diabetes mellitus without complications; B96.20 Unspecified Escherichia coli [E. coli] as the cause of diseases classified elsewhere; Z79.899 Other long term (current) drug therapy; F32.9 Major depressive disorder, single episode, unspecified; F17.210 Nicotine dependence, cigarettes, uncomplicated; Z71.6 Tobacco abuse counseling; M79.7 Fibromyalgia; K59.03 Drug induced constipation; T40.605A Adverse effect of unspecified narcotics, initial encounter; E83.51 Hypocalcemia
CPT/HCPCS: 36415; 71010; 74177; 80048; 80053; 81001; 81025; 81206; 82150; 83690; 83735; 84100; 84550; 85025; 85610; 85730; 87040; 87077; 87088; 87186; C9113; J0131; J0692; J0696; J1170; J2250; J2550; J2765; J3010; J3480; J7030; Q9967; S0164

== ENCOUNTER 2016-10-03 21:38 | Inpatient (IN) ==
[2016-10-03] MEDS ORDERED: NS 2,000 ML ONE (22:24)
[2016-10-03] MEDS ORDERED: NS 1,000 ML IV ONE ×2 (22:30→22:37)
[2016-10-03] MEDS ORDERED: DILAUDID IV ONE (23:03)
[2016-10-03] MEDS ORDERED: ZOFRAN IV ONE (23:04)
[2016-10-03 23:32] LABS: ALBUMIN 3.4 g/dL (3.5-5.0); TOTAL BILIRUBIN 0.34 mg/dL (0.20-1.00); TOTAL PROTEIN 8.6 g/dL (6.3-8.3)
[2016-10-03 23:37] LABS: HEMATOCRIT 28.9 % (37.0-47.0); MANUAL DIFF NEEDED? YES; MCHC 34.6 g/dL (33-37); MCV 95.4 FL (81-99); MPV 11.7 FL (7.4-10.4); PLT 127 X1000 (130-400); RBC 3.03 XMIL (4.2-5.4)
[2016-10-04] MEDS ORDERED: SODIUM CHLORIDE 0.9% INJ ONE (00:05)
[2016-10-04] MEDS ORDERED: PROTONIX IV ONE (00:05)
[2016-10-04 00:35] LABS: BANDS 48 % (0-1)
--- NOTE | 2016-10-04 00:45 | ED EKG INTERP ---
This chart was entered by Juan Kwong Scribe, acting as scribe for Cristopher Garcia MD. EKG Interpretation - EKG Time of EKG reading by physician:: 22:14 EKG Read and Signed by:: Cristopher Garcia EKG Interpretation (*Must complete 3 of following elements*): Abnormal ( Nonspecific T wave abnormality) Rate: 161 Rhythm: Sinus tachycardia This chart was documented by the indicated scribe, (Juan Kwong Scribe) and accurately reflects the services I performed and decisions made by me, Cristopher Garcia MD, as attested by the provider's signature.
[2016-10-04] MEDS: POTASSIUM CHLORIDE 20 MEQ/SWI 20 MEQ/100 ML IVPB IV SCH ×2 (00:46→06:01)
--- NOTE | 2016-10-04 00:46 | PROVIDER DOCUMENTATION ---
This chart was entered by Juan Kwong Scribe, acting as scribe for Cristopher Garcia MD. HPI-Abdominal Pain/GI Problem - General Chief Complaint: Abdominal Pain Stated Complaint: ABD PAIN Time Seen by Provider: 10/03/16 22:11 Source: patient Allergies/Adverse Reactions: Patient Allergies Allergy/AdvReac Type Severity Reaction Status Date / Time Penicillins Allergy Severe rash and Verified 10/03/16 22:30 swelling ketorolac tromethamine * Allergy HIVES Verified 10/03/16 22:30 [From Toradol] meperidine HCl * Allergy ANAPHYLAXIS Verified 10/03/16 22:30 [From Demerol] metoclopramide HCl * Allergy ANAPHYLAXIS Verified 10/03/16 22:30 [From Reglan] morphine Allergy HIVES Verified 10/03/16 22:30 ondansetron HCl * Allergy ANAPHYLAXIS Verified 10/03/16 22:30 [From Zofran (as hydrochloride)] ceftriaxone sodium * AdvReac Intermediate VOMITING Verified 10/03/16 22:30 [From Rocephin] nalbuphine HCl * AdvReac NAUSEA/VOMI Verified 10/03/16 22:30 [From Nubain] TING Home Medications: Home Medication List Medication Instructions Recorded Confirmed Last Taken Type Alprazolam [Xanax] 1 mg PO BID 06/15/16 06/15/16 06/15/16 History Clonidine [Catapres] 0.3 mg PO TID 06/15/16 06/15/16 06/15/16 History Divalproex [Depakote] 500 mg PO BID 06/15/16 06/15/16 06/15/16 History Gabapentin [Neurontin] 600 mg PO TID 06/15/16 06/15/16 06/15/16 History Tramadol [Ultram] 50 mg PO TID 06/15/16 06/15/16 06/15/16 History CefDINIR [Omnicef] 300 mg PO BID #14 capsule 06/20/16 Unknown Rx Dasatinib [Sprycel] 100 mg PO QAM #30 tablet 06/20/16 Unknown Rx Ciprofloxacin HCl [Cipro] 500 mg PO BID #10 tablet 07/28/16 Unknown Rx Tramadol [Ultram] 50 mg PO TID #60 tablet 07/28/16 Unknown Rx - History of Present Illness-ABD Nature of Presenting Problems: Pt is a 26 yof who presents to ER with CC of hematemesis/LLQ pain with sudden onset of tonight. Pt reports hx of CML and has been vomiting clots of blood tonight. Pt reports that she no longer sees Dr. Weinstein and hasn't seen a doctor in the past 6 months. Abdominal Pain Onset Location: reports: LLQ Pain Radiation: reports: chest (R sided) Quality of Pain: reports: aching, cramping Severity in ED: reports: severe Onset/Duration: reports: just prior to arrival Timing: reports: still present Associated Symptoms: reports: anxiety, chest pain (R sided), loss of appetite, nausea, swelling/mass in abdomen, vomiting (hematemesis). denies: arm pain, back/neck pain, constipation, cough, diaphoresis, diarrhea, dizziness, EENT symptoms, fatigue, fever/chills, genitourinary problems, headaches, heartburn, joint pain, malaise, muscle aches, sinus congestion/drainage, rash, seizure, shortness of breath, sensory/motor loss, pain with inspiration, syncope, weakness, trouble walking Last BM: unsure Dark Stools Present?: reports: none noticed Rectal Bleeding: reports: none Rectal Pain: reports: none Emesis Description: reports: other (clots) Review of Systems - Adult - REVIEW OF SYSTEMS - ADULT Constitutional: denies: chills, fever, fatique, night sweats, weight gain, weight loss Eyes: reports: no symptoms reported Ears, Nose, Mouth & Throat: reports: no symptoms reported Cardiovascular: reports: chest pain, irregular heart rate. denies: edema, heart murmur, orthopnea, palpitations, poor circulation, PND, syncope Respiratory: reports: no symptoms reported Gastrointestinal: reports: abdominal pain, hematemesis, nausea, poor appetite, vomiting. denies: constipation, diarrhea, difficulty swallowing, frequent heartburn, rectal bleeding Genitourinary: reports: no symptoms reported Musculoskeletal: reports: no symptoms reported Integumentary: reports: no symptoms reported Neurological: reports: no symptoms reported Psychiatric: reports: no symptoms reported Endocrine: reports: no symptoms reported Hematologic/Lymphatic: reports: no symptoms reported Allergic/Immunologic: reports: no symptoms reported All Other Systems: Reviewed and Negative Past History - Adult - PAST MEDICAL HISTORY-ADULT Review of Records: reports: Nursing Assessment Review, Medications Reviewed Cardiovascular: reports: HTN Obstetrical/Gynecological: reports: ovarian cysts 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 negative: no apparent distress, mild distress, moderate distress - EYES Eyes: PERRL/EOMI, pink conjunctivae, fundi clear, no AV nicking. negative: pale conjunctivae, photophobia, sclera injected, scleral icterus - HEAD, EARS, NOSE, MOUTH & THROAT HENMT: normocephalic/atraumatic, moist mucous membranes, normal ENT inspection, TMs normal, pharynx normal, dental decay (hx of gingivitis) - NECK Neck: non-tender, full range of motion, supple, normal inspection. negative: C- spine tenderness, limited range of motion, lymphadenopathy - RESPIRATORY Respiratory: chest non-tender, lungs clear, normal breath sounds, no pleuratic chest pain, no respiratory distress, no accessory muscle use. negative: wheezing - CARDIOVASCULAR Cardiovascular: normal peripheral pulses, tachycardia. negative: regular rate, rhythm - GASTROINTESTINAL (ABDOMEN) Abdominal Exam: normal bowel sounds, soft, no pulsatile mass, tenderness (LLQ/ LUQ), spleenomegaly. negative: non tender, no organomegaly, abnormal bowel sounds, distended - MUSCULOSKELETAL Back Exam: normal inspection, no CVA tenderness, no vertebral tenderness. negative: CVA tenderness, decreased range of motion, ecchymosis, muscle spasm, swelling, vertebral tenderness Extremity: normal range of motion, non-tender, normal gait, normal inspection, no pedal edema, no calf tenderness, normal capillary refill. negative: deformity, erythema, inflammation, swelling, tenderness - SKIN Integumentary: normal color, normal turgor, warm/dry. negative: abrasion(s), diaphoresis, ecchymosis, erythema, laceration(s), swelling, tenderness, warm - NEUROLOGIC Neurologic: contract runner II-XII nml as tested, grossly normal, no motor/sensory deficits . negative: facial droop, focal weakness, motor weakness, sensory deficit - PSYCHIATRIC Psych/Mental Status: normal thought content, normal thought process, oriented x 3, anxious, disheveled, tearful. negative: normal mood/affect Progress - PLAN OF CARE/RESULTS Progress/Plan/Lab Results: Vital Signs - 8 hr 10/03/16 21:57 Temperature 98.1 F Pulse Rate 168 H Respiratory Rate 24 Blood Pressure 91/47 O2 Sat by Pulse Oximetry 100 Orders Category Date Time Status CHEST-PORTABLE [RAD] Stat Exams 10/03/16 22:15 Ordered BLOOD CULTURE [BLDCUL] Stat Lab 10/03/16 22:28 Ordered CBC WITH ELECTRONIC DIFF [HEME] Stat Lab 10/03/16 22:28 Ordered COMPREHENSIVE METABOLIC PANEL [CHEM] Stat Lab 10/03/16 22:[address] W/POSS RFLX CULT [URINALYSIS] Stat Lab 10/03/16 22:15 Uncollected 0.9% Sodium Chloride Inj [Ns] 1,000 ml Med 10/03/16 22:24 Discontinued .ROUTE As Directed Result Diagrams: 10/03/16 22:40 10/03/16 22:40 - XRAY 1 XRAY: Bilateral XRAY Study: Chest Impression: See EMR Report XRAY Interpretation: Normal -ER preliminary - CONSULTS/PCP/HOSPITALIST Notification #1 *Consult/PCP/Hospitalist*: Dr. Chávez (Hospitalist) Time Discussed: 00:11 Consult Disposition: Admit Departure - Departure Time of Disposition Decision: 00:10 DIAGNOSIS: CML (chronic myelocytic leukemia) Disposition: ADMITTED INPATIENT 09 Certified Medical Emergency: Emergent Condition: Stable Referrals and Follow-Ups: None,PCP [Primary Care Provider] - This chart was documented by the indicated scribe, (Juan Kwong Scribe) and accurately reflects the services I performed and decisions made by me, Cristopher Garcia MD, as attested by the provider's signature.
[2016-10-04] MEDS ORDERED: MORPHINE IV ONE (00:47)
[2016-10-04 02:47] LABS: URINE SOURCE CLEAN CATCH
[2016-10-04 02:51] LABS: BILIRUBIN URINE SMALL (NEGATIVE); BLOOD URINE NEGATIVE (NEGATIVE); COLOR YELLOW; GLUCOSE URINE NEGATIVE (NEGATIVE); LEUKOCYTES URINE NEGATIVE (NEGATIVE); NITRITE URINE NEGATIVE (NEGATIVE); PH URINE 5.5; PROTEIN URINE 70 mg/dL (NEGATIVE); TURBIDITY URINE HAZY (CLEAR); UROBILINOGEN URINE 3 mg/dL (NORMAL)
[2016-10-04 02:52] LABS: URINE MICRO REVIEW NEEDED? YES
[2016-10-04] MEDS ORDERED: NS 1,000 ML IV ONE (02:58)
[2016-10-04] MEDS ORDERED: DILAUDID IV ONE (03:02)
[2016-10-04 03:10] LABS: UR EPITHELIAL CELLS >10 /HPF (<10); URINE BACTERIA 2+ /HPF; URINE CULTURE NEEDED? YES; URINE RBC <10 /HPF (<10)
[2016-10-04 03:15] LABS: URINE CASTS GRANULAR PRESENT
[2016-10-04 03:46] LABS: AMYLASE 26 U/L (20-200); LIPASE 8 U/L (13-60)
[2016-10-04] MEDS ORDERED: TYLENOL PO PRN (04:59)
[2016-10-04] MEDS: DILAUDID IV PRN ×5 (06:01→19:56)
[2016-10-04] MEDS: ZOFRAN IV PRN ×2 (06:07→16:12)
--- NOTE | 2016-10-04 06:31 | HISTORY AND PHYSICAL ---
PRIMARY CARE PROVIDER: The patient reports that she does not have a primary care provider at this time. CHIEF COMPLAINT: Nausea, vomiting and abdominal pain. HISTORY OF PRESENT ILLNESS: Ms. Maurice is a 26-year-old, female with a past medical history most notable for chronic myeloid leukemia, hypertension, depression, and fibromyalgia. She was most recently admitted in June 2016 for abdominal pain and problems related to her leukemia. The patient reports that she previously used to see Dr. Weinstein, though reports that after having a disagreement with him, that she has not seen him since. Upon her last admission, she did see Dr. Parisi while admitted to the hospital. The patient reports that she is currently taking Sprycel for her CML. She sts that she has not missed any doses of this. Though, her other home medication prescriptions, she has been out of for the past 2-3 days. She reports that most recently a physician in [place] prescribed these to her when she was there visiting, though she does not have a regular physician here that she has seen recently. She reports that she began having sudden onset of left lower and left upper quadrant pain tonight as well as had multiple episodes of nausea and vomiting and reportedly vomited up clots of blood. We have ordered a Gastroccult, though ER staff has not been able to visually confirm her reported hematemesis. She denies any hematochezia or melena. She denies any dizziness, lightheadedness or headache. She denies any chest pain, shortness of breath. She denies any diarrhea. Reports that her last bowel movement was approximately 3 days ago. She reports no dysuria or urinary frequency, and actually reports a decrease in her urine output over the past day or so. She also reports a decreased oral intake due to being nauseated. She denies any fever, body aches or chills but did report for the past 3 nights that she has had night sweats. Upon evaluation in the ER, the patient presented with heart rate of 168, blood pressure 91/47, respirations 24 with an oxygen saturation of 100% room air and a temperature of 98.1 degrees. EKG showed sinus tachycardia at a rate of 161 with a QTc of 491. The patient did receive 2 L normal saline bolus in the ER, and since that time, her heart rate has improved and is down to 128 with blood pressure 148/96. Laboratory results did show that she has leukocytosis with a white blood cell count greater than 508,000. She was also found have an acute kidney injury with a creatinine of 1.2, as well a hypokalemia with a potassium level of 3.0. At this time, we will admit the patient for further treatment evaluation of her CML, nausea, vomiting with reported hematemesis and fluid volume depletion. REVIEW OF SYSTEMS: A 12-point review of systems was conducted with the patient , and all were negative except for pertinent positives mentioned above in HPI. PAST MEDICAL HISTORY: 1. Chronic myeloid leukemia diagnosed in 2012. 2. Hypertension. 3. Depression. 4. Ovarian cyst. 5. Fibromyalgia. 6. 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 PAST SURGICAL HISTORY: 1. Tonsillectomy. 2. Previous bone marrow aspirations. 3. Appendectomy. 4. PICC line placement and removals. SOCIAL HISTORY: Patient reports that she currently still does smoke, though has reduced the stones about half a pack per day. She denies any alcohol use, though does report that she still occasionally uses marijuana. FAMILY HISTORY: She reports that her mother and father both have a history of hypertension, heart disease, and diabetes mellitus. She also reports that she has an aunt that has a history of leukemia, and that both of her siblings have kidney disease. ALLERGIES: Patient reports allergies to penicillin, Toradol, Demerol, Reglan, morphine, Rocephin and Nubain. HOME MEDICATIONS: 1. Neurontin 600 mg p.o. t.i.d. 2. Sprycel 100 mg p.o. q.a.m. 3. Catapres 0.2 mg p.o. t.i.d. 4. Klonopin 1 mg p.o. t.i.d. p.r.n. 5. Ultram 50 mg p.o. t.i.d. p.r.n. DIAGNOSTIC DATA/LABORATORY RESULTS: White blood cell count greater than 508,000 , hemoglobin 10, and hematocrit 28.9, platelet count 127,000. Segmented neutrophils were 18, band neutrophils were 48. Sodium 139, potassium 3.0, chloride 100, bicarb 19, BUN 15, creatinine 1.2 , glucose 165, calcium 9. Liver function tests are within normal limits. Amylase 26, lipase 8 , plasma lactate 1.5, TSH 2.32. Urinalysis was obtained via clean catch, was positive for protein, trace ketones, small bilirubin, 10-20 white blood cells, greater than 10 epithelial cells and 2 + bacteria. It was negative for blood, nitrites or leukocytes. EKG showed sinus tachycardia at a rate of 161. QTc was 491. Chest x-ray showed no acute abnormality. We are awaiting official radiology over-read. CT abdomen and pelvis. There was some mild bibasilar atelectasis as well as an intermediate pulmonary nodule along the right minor tissue measuring 5 mm axial. Also, noted was stable severe splenomegaly. There was an absent right kidney. Several punctate densities within the left kidney which may indicate mild nephrocalcinosis versus nonobstructive intrarenal calculi were noted. No left renal abnormalities. No hydronephrosis. No ureteral calculi. There is a stable left hemipelvis cyst measuring 4 x 3.1 cm which likely originates from the left ovary. 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 Also noted were stable mild appearance to the bilateral femoral heads which may indicate avascular necrosis, though no acute osseous abnormality is identified. Radiologist overall impression showed no acute interval changes since 06/15/2016 without multiple stable findings as described above. PHYSICAL EXAMINATION: VITAL SIGNS: Temperature 98.1 degrees, heart rate 128, respirations 20, blood pressure 148/96, oxygen saturations 94% room air. GENERAL: Ms. Maurice is a pleasant 26-year-old, female, who was resting in the ER stretcher. She was in no acute distress. She was awake, alert and able answer all questions appropriately. HEENT: Head is atraumatic, normocephalic. Pupils are equal, round, reactive to light, were 3 mm bilaterally and brisk. Sclerae were white. No lesions noted. Sub- conjunctivae were pink. Oral mucosa was slightly dry. Oropharynx was clear. NECK: Supple. Trachea midline. CARDIOVASCULAR: Patient has normal S1, S2. No murmurs, gallops, rubs appreciated with a tachycardic rate that is regular. PULMONARY: Patient has symmetrical chest expansion bilaterally. Lung sounds are clear to auscultation in bilateral full diamond. ABDOMEN: Soft, tender in left upper and left lower quadrants. The patient was most tender just left of the umbilicus. She did have some rebound tenderness noted upon palpation. Bowel sounds were present in all 4 quadrants were normoactive. EXTREMITIES: No cyanosis, clubbing, or edema noted. Pulse motor and sensory were intact in all extremities as well. Pedal pulses were 3+ bilaterally. INTEGUMENTARY: Patient's skin is pink, warm, dry, and intact. No lesions or sores noted. NEUROLOGICAL: Patient is alert, oriented to person, place, time, and situation. Cranial nerves 2- 12 are grossly intact. ASSESSMENT AND PLAN: 1. Chronic myelogenous leukemia. At this time, we have placed a consult with Dr. Garg and we will await his evaluation and further recommendations. We will continue with fluid hydration with normal saline at 200 mL/h. The patient reports that her Sprycel does cause her to have nausea and vomiting. Though at this time, after receiving the Zofran in the ER, she has not had any further episodes of this and is tolerating oral liquids at this time. So, we will continue with her medications. We will repeat a CBC in the morning and will continue to follow closely. 2. Nausea and vomiting. As previously mentioned, at this time after receiving Zofran, the patient's nausea and vomiting has improved. We will continue with the Zofran q. 4 mg q.4-6 hours p.r.n. as needed. 3. Fluid volume depletion. The patient did receive 2 L normal saline bolus in the ER. We will continue with normal saline at 200 mL/h. We will continue to follow. Will repeat a BMP with magnesium in the morning. 4. Acute kidney injury. This is likely secondary to fluid volume depletion. We will continue with treatment as mentioned per #1 and avoid nephrotoxic medications. 5. Hypokalemia. The patient is receiving 40 mEq of potassium IV in the ER, and will repeat a BMP in the morning to re-evaluate this. 6. We will place the patient on the medical floor with telemetry. She will have vital signs q.4 hours, deep vein thrombosis prophylaxis will be provided with sequential compression devices. We will do strict intake and output q.8 hours. We will do before meals and at bedtime fingerstick blood sugars. At this time, we will place her on a clear liquid diet and will await Gastroccult and monitor for any signs of hematemesis. At this time, the patient has no signs of bleeding at present and is hemodynamically stable. Orders for blood culture have been placed also. The patient's urinalysis did show 10-20 white blood cells and 2+ bacteria, though did have greater than 10 epithelial cells. The patient is not having any urinary symptoms at this time. We will await her urine culture and will continue to follow. Also, I would like to add that we will continue her clonidine for treatment of her hypertension and gastrointestinal prophylaxis will be provided with Protonix 40 mg IV q.24 hours. Further orders and recommendations pending hospital course, diagnostic studies a physician evaluation. Dictated by LONG Hough for Sree Brown MD cc: Sree Brown MD MTDD
[2016-10-04 07:37] LABS: INR 1.18; PROTIME 12.5 Seconds (9.2-11.7); PTT 29.6 Seconds (22.0-36.0)
[2016-10-04 07:40] LABS: AGAP 12; BUN 11 mg/dL (8-22); CHLORIDE 105 mmol/L (98-107); COSMO 277; MAGNESIUM 1.8 mg/dL (1.5-2.7); POTASSIUM 3.3 mmol/L (3.5-5.1); SODIUM 139 mmol/L (136-145); TCO2 22 mmol/L (25-35)
[2016-10-04] MEDS ORDERED: POTASSIUM CHLORIDE 20 MEQ/SWI 20 MEQ/100 ML IVPB IV ONE (07:46)
[2016-10-04 08:08] LABS: EOS# 4.73 X1000 (0.0-0.7); HEMATOCRIT 25.5 % (37.0-47.0); HEMOGLOBIN 8.5 g/dL (12.0-16.0); LYMPH# 18.22 X1000 (1.2-3.4); LYMPH% 3.7 % (20.5-51.1); MANUAL DIFF NEEDED? YES; MCH 32.1 PG (27-31); MCHC 33.3 g/dL (33-37); MCV 96.2 FL (81-99); MONO# 28.39 X1000 (0.11-0.59); MONO% 5.7 % (1.7-9.3); MPV 11.3 FL (7.4-10.4); PLT 101 X1000 (130-400); RBC 2.65 XMIL (4.2-5.4)
[2016-10-04] MEDS: NS 1,000 ML IV SCH ×3 (08:59→12:56)
[2016-10-04] MEDS ORDERED: DASATINIB 100 MG PO SCH (09:00)
[2016-10-04] MEDS: KLONOPIN PO SCH (09:02)
[2016-10-04] MEDS: SPRYCEL PO SCH (09:02)
[2016-10-04] MEDS: NEURONTIN PO SCH ×3 (09:02→16:09)
[2016-10-04] MEDS: CATAPRES PO SCH ×3 (09:02→16:09)
[2016-10-04 09:08] LABS: BANDS 6 % (0-1); EOS 1 % (1-10); LYMPHS 3 % (21-51); MONO 5 % (1-9); NRBC 5 % (0-0)
--- NOTE | 2016-10-04 09:30 | Diag Imaging Result Document ---
PROCEDURE NAME: CHEST-PORTABLE - 10/03/2016 PORTABLE CHEST: COMPARISON: 07/28/2016. FINDINGS: Poor inspiratory effort. The heart is not enlarged. The vessels are not distended. No pneumonia. No pleural effusions identified. IMPRESSION: Negative chest.
--- NOTE | 2016-10-04 10:38 | Diag Imaging Result Document ---
PROCEDURE NAME: ABDOMEN/PELVIS W/O CONTRAST - 10/04/2016 CT ABDOMEN AND PELVIS WITHOUT ORAL OR INTRAVENOUS CONTRAST: COMPARISON: 06/15/2016. FINDINGS: Questionable tiny nodule along the minor fissure on the right. There is basilar atelectasis. There is massive splenomegaly which is slightly more pronounced than on the prior exam. No focal hepatic or pancreatic abnormality identified on this noncontrasted study. No inflammation about the gallbladder. The right kidney is absent. The left kidney is hypertrophic. Normal aorta. No enlarged abdominal lymph nodes. Prominent stool is found throughout the colon. I believe the appendix has been removed. No abscess. No free air. The urinary bladder is moderately distended. There is a 3.6 cm left adnexal cyst, which is unchanged. The uterus has been removed. Mild sclerosis in the femoral heads, but no bony remodeling. IMPRESSION: 1. Marked splenomegaly. 2. Constipation. 3. Absent right kidney. 4. Appendectomy and hysterectomy. 5. Stable left ovarian cyst. A preliminary report was given at 4:22 a.m. MTDD
[2016-10-04 11:33] LABS: URINE CULTURE NEEDED? NO; URINE MICRO REVIEW NEEDED? NO; URINE SOURCE CLEAN CATCH
--- NOTE | 2016-10-04 11:35 | CONSULTATION ---
DATE OF CONSULTATION: 10/04/2016 REFERRING PHYSICIAN: Dr. Emily Fang. REASON FOR REFERRAL: History of CML, known to my service. HISTORY OF PRESENT ILLNESS: Ms. Debora Maurice is a very pleasant, 26-year-old woman with a history of CML currently on SPRYCEL who has a history of noncompliance with therapy and was last seen in our office in July 2015. She states that she has been in [place] for the past several months and has been receiving her SPRYCEL through physicians at the local ER. She presented to [facility] with nausea, vomiting and abdominal pain. The Hematology/Oncology service was placed on consult to provide further workup and treatment options. PAST MEDICAL HISTORY: 1. CML. 2. Fibromyalgia. 3. Depression. 4. Hypertension. 5. Ovarian cyst. 6. Absent right kidney. PAST SURGICAL HISTORY: 1. Appendectomy. 2. Multiple bone marrow aspirations. 3. Tonsillectomy. SOCIAL HISTORY: The patient is a current smoker and an occasional marijuana user. FAMILY HISTORY: Negative for malignancies. Positive for leukemia in her aunt. ALLERGIES: Toradol, penicillin, Demerol, morphine, Rocephin, Reglan and Nubain. MEDICATIONS: As per medication sheet. REVIEW OF SYSTEMS: As per HPI. Otherwise, a 12-point review of systems was negative. PHYSICAL EXAMINATION: General: The patient appears to be in no apparent distress. She was talking on the phone when I walked in. Vital Signs: Blood pressure 145/93, pulse 121, respirations 22, temperature 98.6 degrees Fahrenheit, O2 saturation 95% on room air. HEENT: Head normocephalic, atraumatic. Mucosa is pale and moist. Pupils reactive to light. Oropharynx clear. Neck: Supple. No lymphadenopathy or thyromegaly. Cardiovascular: S1, S2 noted, tachycardic. Respiratory: Breath sounds clear to auscultation bilaterally. No rhonchi, rales, or wheezing noted. Abdomen: Soft. Tenderness to palpation left upper and lower quadrant, nondistended. Positive for bowel sounds. Extremities: No evidence of edema, DVT or cyanosis. Skin: No rashes. No rashes noted. Neurological: No focal neurological deficits. ASSESSMENT: 1. CML. 2. Nausea, vomiting and abdominal pain. PLAN: 1. The patient has a history of noncompliance and was last seen in our office July 2015. She reports that she has been taken her SPRYCEL however there is concern for noncompliance as her white count today is 485,000. We will obtain a flow cytometry on peripheral blood as well as a BCR-ABL to assess her current status of CML. Further recommendations will depend upon results. We agree with continuing her SPRYCEL. 2. This is likely secondary to splenomegaly and we will obtain an ultrasound of the abdomen to assess the spleen size. Further recommendations will depend upon results. Thank you for this consult and allowing us to take part in the care of this patient. Further recommendations to follow. Dictated by LONG Liang for Jimmie Weinstein MD cc: Jimmie Weinstein MD
[2016-10-04 11:39] LABS: BILIRUBIN URINE NEGATIVE (NEGATIVE); BLOOD URINE NEGATIVE (NEGATIVE); COLOR ORANGE; GLUCOSE URINE NEGATIVE (NEGATIVE); LEUKOCYTES URINE NEGATIVE (NEGATIVE); NITRITE URINE NEGATIVE (NEGATIVE); PH URINE 5.5; PROTEIN URINE TRACE mg/dL (NEGATIVE); SP GRAVITY URINE 1.023; TURBIDITY URINE TURBID (CLEAR); UR EPITHELIAL CELLS <10 /HPF (<10); URINE BACTERIA 1+ /HPF; URINE RBC <10 /HPF (<10); URINE WBC <10 /HPF (<10); UROBILINOGEN URINE NORMAL (NORMAL)
--- NOTE | 2016-10-04 13:29 | Diag Imaging Result Document ---
PROCEDURE NAME: US ABDOMEN-COMPLETE - 10/04/2016 ABDOMINAL ULTRASOUND: FINDINGS: Normal pancreas, aorta, and inferior vena cava. No focal hepatic abnormality. No right kidney. There is a 15 mm stone within the gallbladder. The gallbladder wall is not thickened. The patient is not tender over this area. There are several other smaller stones within the gallbladder as well. Normal left kidney. No hydronephrosis. The spleen is markedly enlarged measuring just over 28 cm. No ascites. IMPRESSION: 1. Marked splenomegaly. 2. Cholelithiasis. 3. No right kidney.
[2016-10-04 14:45] LABS: POTASSIUM 3.5 mmol/L (3.5-5.1)
[2016-10-04] MEDS ORDERED: NS IV ONE (15:00)
[2016-10-04] MEDS ORDERED: POTASSIUM PHOSPHATE IV ONE (15:00)
[2016-10-05] MEDS: PROTONIX IV SCH
[2016-10-05] MEDS: SODIUM CHLORIDE 0.9% INJ SCH (00:01)
[2016-10-05] MEDS: NS 1,000 ML IV SCH ×2 (03:49→18:27)
[2016-10-05] MEDS: DILAUDID IV PRN ×7 (03:50→21:21)
[2016-10-05 07:52] LABS: HEMATOCRIT 26.8 % (37.0-47.0); HEMOGLOBIN 9.1 g/dL (12.0-16.0); MANUAL DIFF NEEDED? YES; MCH 32.5 PG (27-31); MCV 95.7 FL (81-99); MPV 10.2 FL (7.4-10.4); PLT 98 X1000 (130-400)
[2016-10-05 08:13] LABS: AGAP 12; ALBUMIN 2.8 g/dL (3.5-5.0); ALKALINE PHOSPHATASE 70 U/L (32-104); BUN 8 mg/dL (8-22); CALCIUM 8.1 mg/dL (8.8-10.2); CHLORIDE 101 mmol/L (98-107); COSMO 266; GOT 18 U/L (10-30); GPT 6 U/L (10-36); MAGNESIUM 1.8 mg/dL (1.5-2.7); SODIUM 134 mmol/L (136-145); TCO2 21 mmol/L (25-35); TOTAL BILIRUBIN 0.25 mg/dL (0.20-1.00); TOTAL PROTEIN 7.6 g/dL (6.3-8.3)
[2016-10-05 08:30] LABS: BANDS 13 % (0-1); EOS 2 % (1-10); LYMPHS 5 % (21-51); NRBC 1 % (0-0)
[2016-10-05 08:31] LABS: POLYCHROM OCCASIONAL
[2016-10-05] MEDS: CATAPRES PO SCH ×3 (09:57→18:27)
[2016-10-05] MEDS: KLONOPIN PO SCH (09:57)
[2016-10-05] MEDS: NEURONTIN PO SCH ×3 (09:58→18:27)
[2016-10-05] MEDS: SPRYCEL PO SCH (09:58)
[2016-10-05] MEDS ORDERED: SODIUM PHOSPHATE IV ONE (10:44)
[2016-10-05] MEDS ORDERED: NS IV ONE (10:44)
--- NOTE | 2016-10-05 15:06 | PROGRESS NOTE ---
DATE: 10/05/2016 SUBJECTIVE: The patient states that she is still having abdominal pain. She denies having any nausea or vomiting. OBJECTIVE: Vital Signs: Temperature 98.5 degrees, blood pressure 139/87, heart rate 115, respirations 16, O2 saturation is 96% on room air. General: This is a young female, lying in bed, in no acute distress. Head: Normocephalic, atraumatic. Heart: S1, S2. Normal. Regular rate and rhythm. Lungs: Clear to auscultation bilaterally. No wheezes. No rales. No rhonchi. Abdomen: Positive bowel sounds. Soft, nontender, nondistended. Extremities: No edema. No cyanosis. No calf tenderness. Neurologic: The patient is alert and oriented x3. LABS: White blood cell count 468.9, hemoglobin 9.1, hematocrit 26, platelets 98 ,000. Sodium 134, potassium 4, chloride 101, CO2 21, BUN 8, creatinine 0.7, glucose 95, phosphorus 2.5. ASSESSMENT AND PLAN: 1. Chronic myeloid leukemia. Continue on Sprycel as directed by the oncologist. Further management as per the oncologist. 2. Nausea, vomiting, and abdominal pain. Continue with p.r.n. pain medication. We will also start the patient on laxative therapy. 3. Hypertension. Controlled. 4. Thrombocytopenia. Aware. 5. Hypophosphatemia. Will replace the patient's phosphorus. cc: Emily Fang MD MTDD
[2016-10-06] MEDS: DILAUDID IV PRN ×8 (00:24→23:20)
[2016-10-06] MEDS: PROTONIX IV SCH ×2 (00:24→23:58)
[2016-10-06] MEDS: SODIUM CHLORIDE 0.9% INJ SCH ×2 (00:24→23:58)
[2016-10-06] MEDS: ZOFRAN IV PRN (03:30)
[2016-10-06] MEDS: NS 1,000 ML IV SCH ×2 (06:35→17:10)
[2016-10-06 07:09] LABS: FLOW CYTOMETERY SOURCE WHOLE BLOOD; LEUKEMIA LYMPHOMA BY FLOW REFERRED FOR TESTING
[2016-10-06 07:56] LABS: EOS# 5.28 X1000 (0.0-0.7); EOS% 1.2 % (0.0-10.0); HEMATOCRIT 24.8 % (37.0-47.0); HEMOGLOBIN 8.3 g/dL (12.0-16.0); LYMPH# 14.29 X1000 (1.2-3.4); LYMPH% 3.3 % (20.5-51.1); MANUAL DIFF NEEDED? YES; MCH 31.9 PG (27-31); MCHC 33.5 g/dL (33-37); MCV 95.4 FL (81-99); MONO# 19.87 X1000 (0.11-0.59); MONO% 4.6 % (1.7-9.3); MPV 11.1 FL (7.4-10.4); PLT 85 X1000 (130-400)
[2016-10-06 07:59] LABS: AGAP 12; ALBUMIN 2.9 g/dL (3.5-5.0); ALKALINE PHOSPHATASE 63 U/L (32-104); BUN 10 mg/dL (8-22); CALCIUM 8.2 mg/dL (8.8-10.2); CHLORIDE 103 mmol/L (98-107); COSMO 274; GOT 18 U/L (10-30); GPT 6 U/L (10-36); POTASSIUM 3.9 mmol/L (3.5-5.1); SODIUM 138 mmol/L (136-145); TCO2 23 mmol/L (25-35); TOTAL BILIRUBIN 0.32 mg/dL (0.20-1.00); TOTAL PROTEIN 7.2 g/dL (6.3-8.3)
[2016-10-06 08:02] LABS: BANDS 20 % (0-1)
[2016-10-06 08:03] LABS: LYMPHS 2 % (21-51)
[2016-10-06] MEDS: KLONOPIN PO SCH (08:31)
[2016-10-06] MEDS: CATAPRES PO SCH ×3 (08:31→17:09)
[2016-10-06] MEDS: NEURONTIN PO SCH ×3 (08:32→17:09)
[2016-10-06] MEDS: SPRYCEL PO SCH (08:32)
--- NOTE | 2016-10-06 09:25 | EKG Report ---
Test Performed on : 10/03/2016 10:08:37 PM Test Reason : ED. Not ordered in [place] Blood Pressure : / mmHG Vent. Rate : 161 BPM Atrial Rate : 161 BPM P-R Int : 130 ms QRS Dur : 064 ms QT Int : 300 ms P-R-T Axes : 064 037 071 degrees QTc Int : 491 ms Sinus tachycardia. Nonspecific T wave abnormality Abnormal ECG When compared with ECG of 02-JUL-2015 14:15, Vent. rate has increased BY 89 BPM T wave inversion no longer evident in Anterior leads Nonspecific T wave abnormality now evident in Lateral leads Unconfirmed Result
--- NOTE | 2016-10-06 17:07 | PROGRESS NOTE ---
DATE: 10/06/2016 SUBJECTIVE: Patient reports still having abdominal pain but this definitely much better controlled today. She is not vomiting anymore. OBJECTIVE: Vital Signs: Temperature 98.5 degrees, heart rate 112, respiratory rate 16, blood pressure 111/79, O2 saturation 100% on room air. General Examination: This is a young female lying in bed in no acute distress. HEENT: Head is normocephalic, atraumatic. Anicteric sclerae and pale conjunctivae. Mucous membranes moist. Neck: Supple. No JVD noted. No carotid bruits. No lymphadenopathy. No thyromegaly. Cardiovascular: S1, S2 heard. No murmurs, gallops, or rubs. Regular rate and rhythm. Respiratory: Clear bilaterally to auscultation. No work of breathing or using accessory muscles. Abdomen: Soft, nontender to palpation. Splenomegaly noted. Extremities: No clubbing, cyanosis, or edema. Peripheral pulses present in both legs. Neurological: Patient alert, oriented x3. Able to move 4 extremities. Cranial nerves 2-12 grossly normal. LABORATORY DATA: White cell count 431.18, hemoglobin 8.3, hematocrit 24.8, platelets 85,000. BMP unremarkable. ASSESSMENT AND PLAN: 1. Chronic myeloid leukemia. Hematology/oncology has been consulted and she has been restarted on Sprycel. Dr. Sotelo is following this patient. Will follow their recommendations. 2. Intractable nausea, vomiting, that condition was resolving slowly. 3. Hypertension. That condition is well controlled. Will continue with same management. 4. Thrombocytopenia aware. 5. Hypophosphatemia. We have not checked phosphorus today. We are going to check phosphorus today. Will go from there. cc: Sree Brown MD [facility]
[2016-10-07] MEDS: DILAUDID IV PRN ×4 (02:40→12:03)
[2016-10-07] MEDS: NS 1,000 ML IV SCH (02:41)
[2016-10-07 08:00] LABS: AGAP 13; ALBUMIN 3.1 g/dL (3.5-5.0); ALKALINE PHOSPHATASE 60 U/L (32-104); BUN 11 mg/dL (8-22); CALCIUM 8.8 mg/dL (8.8-10.2); CHLORIDE 100 mmol/L (98-107); COSMO 269; GOT 20 U/L (10-30); GPT 8 U/L (10-36); POTASSIUM 4.2 mmol/L (3.5-5.1); SODIUM 135 mmol/L (136-145); TCO2 22 mmol/L (25-35); TOTAL BILIRUBIN 0.33 mg/dL (0.20-1.00); TOTAL PROTEIN 7.6 g/dL (6.3-8.3)
[2016-10-07] MEDS: NEURONTIN PO SCH ×2 (08:52→12:04)
[2016-10-07] MEDS: SPRYCEL PO SCH (08:52)
[2016-10-07] MEDS: KLONOPIN PO SCH (08:52)
[2016-10-07] MEDS: CATAPRES PO SCH ×2 (08:53→12:04)
[2016-10-07 10:11] LABS: HEMATOCRIT 25.8 % (37.0-47.0); HEMOGLOBIN 8.6 g/dL (12.0-16.0); MANUAL DIFF NEEDED? YES; MCH 32.1 PG (27-31); MCHC 33.3 g/dL (33-37); MCV 96.3 FL (81-99); MPV 11.7 FL (7.4-10.4); PLT 96 X1000 (130-400); RBC 2.68 XMIL (4.2-5.4)
[2016-10-07 10:22] LABS: BANDS 18 % (0-1); LYMPHS 10 % (21-51)
[2016-10-07 10:23] LABS: HYPOCHROM 1+; LARGE PLATELETS 1+
[2016-10-07 12:09] VITALS: BP 110/82
--- NOTE | 2016-10-08 07:13 | DISCHARGE SUMMARY ---
ADMISSION DATE: 10/04/2016 DISCHARGE DATE: 10/07/2016 CONSULTATIONS: Dr. Weinstein with Hematology/Oncology. PERTINENT PROCEDURES: Abdomen and pelvis CT showed marked splenomegaly, constipation, absence of the right kidney, appendectomy, and hysterectomy, stable left ovarian cyst. DISCHARGE DIAGNOSES: 1. Chronic myeloid leukemia. Continue on Sprycel as directed by oncologist. Further management per Dr. Weinstein. 2. Nausea, vomiting and abdominal pain. Continue with p.r.n. medications. The patient was started on laxative therapy. 3. Hypertension controlled. 4. Thrombocytopenia, aware. 5. Hypophosphatemia resolved. HOSPITAL COURSE: Ms. Maurice is a 26-year-old, female with a past medical history notable for chronic myeloid leukemia, hypertension, depression, and fibromyalgia who was recently admitted June, for abdominal pain and problems related to her leukemia. She reports that she previously used to see Dr. Weinstein, but reports that after having a disagreement with him that she has not seen him since. Upon her last admission she did see Dr. Parisi while admitted here. The patient reports she is currently taking Sprycel for her CML. She has not missed any doses, although her other medication prescription she has been out of for 2-3 days prior to her admission. She reports that most recently a physician in [place] prescribed her medications while she was visiting there, and that she does not have a regular physician that she sees here. She does report the onset of the lower and left lower quadrant pain as well as multiple episodes of nausea and vomiting. Reportedly vomited up clots of blood. Evaluation in the ED showed heart rate was 160 and blood pressure 91/47, respirations of 24, and O2 saturation of 100% on room air. Temperature 98.1 degrees. EKG showed sinus tachycardia, a rate of 161. Patient did received 2 L normal saline bolus. Since that time her heart rate did improve, as well as her blood pressure. Patient was noted to have leukocytosis with an elevated white count. She was found to have an acute kidney injury and a creatinine of 1.2 as well as hypokalemia. Patient was admitted for treatment and evaluation of her CML, nausea, vomiting and reported hematemesis and fluid volume depletion, and an oncology consult. Hematology also questioned her compliance with her Sprycel because her white count on admission was greater than 508. We did continue he Sprycel. They did obtain abdominal ultrasound to assess the size of her spleen and did show marked splenomegaly, cholelithiasis, and no right kidney. Patient was initiated on laxative therapy for continued abdominal pain for intractable nausea and vomiting resolved. Dr. Chávez spoke with Dr. Weinstein. This patient is appropriate for discharge today. VITAL SIGNS AT TIME OF HER DISCHARGE: Temperature is 98.1 degrees, heart rate 100, respirations 18, blood pressure 118/73, O2 is 97%. Patient's white count at time of discharge was 404.49 and hemoglobin and hematocrit is 8.6 and 25.8, and platelet count 96,000. DISCHARGE MEDICATIONS: 1. Klonopin 1 mg p.o. t.i.d. p.r.n. 2. Catapres 0.2 mg p.o. t.i.d. 3. Sprycel 100 mg p.o. q.a.m. 4. Neurontin 600 mg p.o. t.i.d. 5. Ripley 5 1 each p.o. q.6 hours p.r.n. FOLLOW-UP: Patient is being discharged home. She will need to follow up with Dr. Weinstein in 1 week. She will also need to obtain a primary care physician in her area and follow up in 7-10 days. Patient to return to the ED for any worsening of symptoms. DISCHARGE TIME: 30 minutes. Dictated by LONG Hanley for Sree Brown MD cc: Sree Brown MD
== END 2016-10-07 14:30 | disposition home or self-care (01) ==
LOC: ED 21:38 → SUATTDRO 10-04 04:55 → 3N 10-04 04:55
PROVIDERS: ATTEND Internal Medicine

== ENCOUNTER 2016-11-27 11:06 | Inpatient (IN) ==
[2016-11-27] MEDS ORDERED: ZOFRAN IV ONE (11:38)
[2016-11-27] MEDS ORDERED: NS 1,000 ML IV ONE (11:41)
[2016-11-27] MEDS ORDERED: DILAUDID IV ONE ×2 (11:41→13:57)
[2016-11-27 13:55] LABS: ALBUMIN 3.2 g/dL (3.5-5.0); CALCIUM 8.7 mg/dL (8.8-10.2); TOTAL BILIRUBIN 0.33 mg/dL (0.20-1.00)
[2016-11-27] MEDS ORDERED: KLOR-CON PO ONE (13:57)
[2016-11-27 14:11] LABS: HEMATOCRIT 25.3 % (37.0-47.0); HEMOGLOBIN 8.8 g/dL (12.0-16.0); MCH 31.8 PG (27-31); MCHC 34.8 g/dL (33-37); MCV 91.3 FL (81-99); MPV 12.5 FL (7.4-10.4); PLT 121 X1000 (130-400); RBC 2.77 XMIL (4.2-5.4)
[2016-11-27 15:59] LABS: URINE MICRO REVIEW NEEDED? NO; URINE SOURCE CLEAN CATCH
[2016-11-27 16:21] LABS: BILIRUBIN URINE NEGATIVE (NEGATIVE); BLOOD URINE NEGATIVE (NEGATIVE); COLOR YELLOW; GLUCOSE URINE NEGATIVE (NEGATIVE); LEUKOCYTES URINE NEGATIVE (NEGATIVE); NITRITE URINE NEGATIVE (NEGATIVE); PH URINE 7.5; PROTEIN URINE TRACE mg/dL (NEGATIVE); SP GRAVITY URINE 1.015; TURBIDITY URINE HAZY (CLEAR); UROBILINOGEN URINE NORMAL (NORMAL)
[2016-11-27 16:23] LABS: UR EPITHELIAL CELLS >10 /HPF (<10); URINE BACTERIA 1+ /HPF; URINE CULTURE NEEDED? YES; URINE RBC <10 /HPF (<10)
[2016-11-27 16:24] LABS: UR AMPHETAMINES QUAL NONE DETECTED (NONE DETECT); UR BARBITUATES QUAL NONE DETECTED (NONE DETECT); UR BENZODIAZEPIN QUAL PRESUMPTIVE POSITIVE (NONE DETECT); UR CANNABINOIDS QUAL NONE DETECTED (NONE DETECT); UR COCAINE QUAL NONE DETECTED (NONE DETECT); UR METHADONE QUAL NONE DETECTED (NONE DETECT); UR OPIATES QUAL PRESUMPTIVE POSITIVE (NONE DETECT); UR OXYCODONE QUAL NONE DETECTED (NONE DETECT); UR PCP QUAL NONE DETECTED (NONE DETECT)
--- NOTE | 2016-11-27 16:54 | Diag Imaging Result Doc PS360 ---
EXAM: ABD/PELVIS/PULM ARTERIES - 11/27/2016 HISTORY: CP/abd pain with elevated D-dimer TECHNIQUE: With intravenous contrast. Dose reduction protocol. COMPARISON: CT abdomen and pelvis of 11/22/2016 FINDINGS: There are no filling defects identified in the pulmonary arteries. There is no indication of aortic dissection. There is bilateral dependent and basilar atelectasis. There is no discrete consolidation, pleural effusion, or pneumothorax identified. There is massive splenomegaly similar to the previous exam. There is no focal splenic lesion identified. There are no acute abnormalities of the liver, adrenal glands, or pancreas identified. There are small low-density gallstones in the gallbladder. There is no pericholecystic inflammation seen. 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 There is compensatory hypertrophy of the left kidney, which otherwise is unremarkable. There is no left hydronephrosis. There are no substantial enlarged lymph nodes identified. There is no evidence of bowel obstruction. There is a large amount retained fecal debris in the colon suggesting constipation. There is no free air or abscess identified. Images of pelvis show left ovarian cysts, the largest of which measures 4.1 cm. What appears to represent the uterus is located at the left posterior pelvis, similar to the previous exam. There is a small amount of free fluid in the pelvis. IMPRESSION: No evidence of pulmonary embolism. Bilateral dependent and basilar atelectasis. No discrete pneumonia. Massive splenomegaly similar to the prior exam. No focal splenic lesion identified. Small low-density gallstones in gallbladder. No pericholecystic inflammation. Congenitally absent right kidney. No left hydronephrosis. Substantial constipation. No bowel obstruction. Left ovarian cysts, largest of which measures 4.1 cm. Small amount of free fluid in pelvis. Electronically signed by Demetri Tran 11/27/2016 4:51 PM
--- NOTE | 2016-11-27 16:59 | PROVIDER DOCUMENTATION ---
This chart was entered by [place] Scribe, acting as scribe for Hillary Cobos MD. HPI-General Adult - General Chief Complaint: Abdominal Pain Stated Complaint: LEFT SIDE/SHOULDER PAIN ,VOMITING BLOOD Time Seen by Provider: 11/27/16 11:24 Source: patient Allergies/Adverse Reactions: Patient Allergies Allergy/AdvReac Type Severity Reaction Status Date / Time Penicillins Allergy Severe rash and Verified 11/27/16 11:55 swelling ketorolac tromethamine * Allergy HIVES Verified 11/27/16 11:55 [From Toradol] meperidine HCl * Allergy ANAPHYLAXIS Verified 11/27/16 11:55 [From Demerol] metoclopramide HCl * Allergy ANAPHYLAXIS Verified 11/27/16 11:55 [From Reglan] morphine Allergy HIVES Verified 11/27/16 11:55 ceftriaxone sodium * AdvReac Intermediate VOMITING Verified 11/27/16 11:55 [From Rocephin] nalbuphine HCl * AdvReac NAUSEA/VOMI Verified 11/27/16 11:55 [From Nubain] TING Home Medications: Home Medication List Medication Instructions Recorded Confirmed Last Taken Type Gabapentin [Neurontin] 600 mg PO TID 06/15/16 11/27/16 11/27/16 10:00 History Dasatinib [Sprycel] 100 mg PO QAM #30 tablet 06/20/16 11/27/16 11/27/16 10:00 Rx Clonazepam [Klonopin] 1 mg PO TID PRN PRN 10/04/16 11/27/16 11/27/16 10:00 History Clonidine [Catapres] 0.2 mg PO TID #90 tablet 10/07/16 11/27/16 11/27/16 10:00 Rx - History of Present Illness -Gen Adult Nature of Presenting Problems: 26 yo F presents to the ER with complaint of L sided abdominal pain and L shoulder pain. PT also complains she is SOB. PT has a hx of a high white count and [facility]. In the past PT has had two bone marrow biopsy and never followed up. Location of Pain/Injury: reports: upper extremity, abdomen Pain Radiation: reports: no radiation Quality of Pain: reports: aching Severity: reports: mild Onset/Duration: reports: this morning Associated Symptoms: reports: nausea, shortness of breath, vomiting Review of Systems - Adult - REVIEW OF SYSTEMS - ADULT Constitutional: denies: chills, fever Cardiovascular: denies: chest pain, palpitations Respiratory: denies: cough, shortness of breath Gastrointestinal: reports: abdominal pain, nausea. denies: diarrhea, vomiting Musculoskeletal: denies: back pain, neck pain All Other Systems: Reviewed and Negative Past History - Adult - PAST MEDICAL HISTORY-ADULT Review of Records: reports: Old Records Reviewed, Nursing Assessment Review, Medications Reviewed, Social history reviewed & non-contributory. Major Childhood Illnesses: reports: denies history Cardiovascular: reports: HTN Respiratory: reports: denies history Gastrointestinal: reports: denies history Obstetrical/Gynecological: reports: ovarian cysts Genitourinary: reports: kidney disease (congenital missing right kidney) Musculoskeletal: reports: denies history Neurological: reports: Seizures/Epilepsy Psychiatric: reports: depression Endocrine/Immune: reports: Diabetes, Leukemia (CML) Other Conditions: reports: denies history - PRIOR SURGERIES/PROCEDURES Surgical/Procedure History: reports: appendectomy, tonsillectomy, other (BONE MARROW BIOPSY) - IMMUNIZATION STATUS Childhood Immunizations: See Nurse Assessment Flu Vaccine: See Nurse Assessment - FAMILY HISTORY Family History: reviewed, not pertinent Physical Exam-General - PHYSICAL EXAM-ADULT Initial Vital Signs Reviewed: Yes - CONSTITUTIONAL General Appearance: appears well, alert, no apparent distress - NECK Neck: non-tender, full range of motion, supple - RESPIRATORY Respiratory: chest non-tender, lungs clear, normal breath sounds - CARDIOVASCULAR Cardiovascular: normal peripheral pulses, tachycardia - GASTROINTESTINAL (ABDOMEN) Abdominal Exam: normal bowel sounds, non tender, soft, spleenomegaly Progress - PLAN OF CARE/RESULTS Progress/Plan/Lab Results: Vital Signs - 8 hr 11/27/16 11:12 Temperature 98.4 F Pulse Rate 134 H Respiratory Rate 18 Blood Pressure 128/76 O2 Sat by Pulse Oximetry 97 Result Diagrams: 11/27/16 12:50 11/27/16 12:50 - CT/MRI 1 CT Study: Abdomen, Pelvis, Thorax Impression: Abnormal (No PE, massive enlarged spleen w/o splenic rupture. Severe constipation.) - CONSULTS/PCP/HOSPITALIST Notification #1 *Consult/PCP/Hospitalist*: Dr. Franz Time Discussed: 16:57 Consult Disposition: Will see in ED, Admit Departure - Departure Date of Disposition Decision: 11/27/16 Time of Disposition Decision: 12:42 DIAGNOSIS: Sudden onset of severe abdominal pain, Leukocyte disorder, Splenomegaly Disposition: ADMITTED INPATIENT 09 Certified Medical Emergency: Emergent Condition: Stable Additional Freetext Instructions: ED Follow Up Instructions: You have been treated by a care provider in the Emergency Department. These instructions are being provided to you so you can have an understanding of how to care for yourself upon discharge. Upon discharge from the Emergency Department, you are responsible for making arrangements for follow-up care by a physician of your choice. Take all prescribed medications as directed. Return to the Emergency Department immediately for any new or worsening symptoms. You may call the Physician Referral phone number at [phone] to obtain a list of Physicians who are taking new patients. Referrals and Follow-Ups: None,PCP [Primary Care Provider] - - Critical Care Note This patient required my direct & personal management of CC.: No This chart was documented by the indicated scribe, ([place]ber [place] Scribe) and accurately reflects the services I performed and decisions made by me, Hillary Cobos MD, as attested by the provider's signature.
[2016-11-27] MEDS ORDERED: NORCO-7.5 PO ONE (17:59)
[2016-11-27 18:19] LABS: MANUAL DIFF NEEDED? YES
[2016-11-27] MEDS: NS 1,000 ML IV SCH ×2 (18:23→18:51)
[2016-11-27 18:25] LABS: BANDS 6 % (0-1); EOS 2 % (1-10); LYMPHS 4 % (21-51); MONO 1 % (1-9); NRBC 2 % (0-0)
--- NOTE | 2016-11-27 18:37 | HISTORY AND PHYSICAL ---
CHIEF COMPLAINT: Abdominal pain. HISTORY OF PRESENT ILLNESS: Mrs. Maurice is a 26-year-old, female with a history of CML, fibromyalgia, massive splenomegaly, depression and nicotine dependence, who presents with 3 days of worsening abdominal pain, nausea and vomiting. This is similar to her previous admissions for abdominal pain. She reports left upper quadrant pain with radiation to the left shoulder associated with nausea, vomiting. She denies any diarrhea. She denies any fevers or chills. She does report some mild midsternal discomfort. She denies lower extremity edema, and no orthopnea. She came to the ER and had a CT of the abdomen and pelvis done which showed massive splenomegaly which is similar to previous exams. No focal splenic lesion is identified. 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 There is substantial constipation. There is also a left ovarian cyst and small amount of free fluid. Pulmonary artery arteriogram was also done and it did not show any PE. Her white count is greater than 563, 000. She is also anemic which is chronic, and she has some other mild nonspecific lab data abnormalities. Hematology/Oncology has been consulted and we are going to admit the patient for further treatment and evaluation. PAST MEDICAL HISTORY: 1. Chronic CML. 2. Massive splenomegaly. 3. Medical noncompliance. 4. Nicotine dependence. 5. Depression. 6. Fibromyalgia. 7. Ovarian cyst. 8. Hypertension. SURGICAL HISTORY: Appendectomy, multiple bone marrow aspirations, tonsillectomy. SOCIAL HISTORY: Patient smokes a half pack a day. She denies alcohol or illicit drug use. She lives with her grandfather. FAMILY HISTORY: Noncontributory. ALLERGIES: Penicillin, Toradol, meperidine, Reglan, morphine, Rocephin, Nubain. HOME MEDICATIONS: Neurontin 600 mg p.o. 3 times daily. Sprycel 100 mg by mouth in the morning. Catapres 0.2 mg p.o. 3 times daily. Klonopin 1 mg p.o. 3 times daily p.r.n. REVIEW OF SYSTEMS: Fourteen-point review of systems obtained and found to be negative with the exception of the HPI. PHYSICAL EXAMINATION: VITAL SIGNS: Blood pressure is 115/77, heart rate 100, respiratory rate is 18, O2 saturation 96% on 1 L nasal cannula. Temperature is 98.4 degrees. GENERAL: This is a chronically ill and disheveled appearing 26-year-old female, lying in hospital bed in no acute distress. NEUROLOGIC: The patient is awake, alert, and oriented. She follows commands without focal deficits. HEENT: Head is atraumatic and normocephalic. Her pupils are equal, round, and reactive to light. Oral mucosa is moist. Trachea is midline. There is no JVD. CHEST: Clear to auscultation bilaterally. CV: Regular rate and rhythm. S1, S2 is noted. No murmurs appreciated. GI: Distended slightly but overall soft. There is left splenomegaly and tenderness to palpation. Bowel sounds are hypoactive. EXTREMITIES: No edema, clubbing or cyanosis. Pulses are palpable bilaterally. DIAGNOSTIC DATA: CT of the abdomen and pelvis: Please see HPI. Laboratory data: Sodium 140, potassium 3.0, chloride 103, CO2 25, anion gap 12, BUN 4, creatinine 1.1. Glucose is 77. Calcium 8.7, bilirubin 0.33, AST 26, ALT 5, alkaline phosphatase 91, albumin 3.2, amylase 18, lipase 9. UA is negative for UTI. D-dimer 1.58. WBC greater than 563,000, hemoglobin 8.8 , hematocrit 25.3, platelet count 121,000. Tox screen is positive for opiates and benzodiazepines. ASSESSMENT AND PLAN: 1. Abdominal pain: Most certainly secondary to her massive splenomegaly. We will admit her for bowel rest, give her IV fluids and antiemetics along with pain medicine. She is also quite constipated on CT, so we will give her some Relistor. 2. Chronic myelogenous leukemia: WBC greater than 563,000. We have asked the lab to do a peripheral smear to evaluate for blast crisis. Hematology/Oncology has been consulted and will continue her Sprycel. 3. Anemia. Do not see any iron studies done this past year. We will go ahead and order a complete set of iron studies. 4. Hypokalemia: We will check a magnesium and replace. 5. Protein calorie malnutrition: Will consult Nutrition. 6. Nicotine dependence: Patient has been highly advised to quit smoking. We will write a nicotine patch and continue daily cessation education. 7. Deep venous thrombosis prophylaxis will be provided with Lovenox. 8. Further recommendations to follow. Dictated by LONG Castillo for Alec Franz MD cc: LONG Castillo Addendum: I personally evaluated and examined the patient in conjunction to the INJECTION SPECIALIST and agreed with his assessment and plans. EL
[2016-11-27] MEDS: DILAUDID IV PRN ×2 (18:50→23:16)
[2016-11-27] MEDS: ZOFRAN IV PRN (18:58)
[2016-11-27] MEDS: NICODERM PATCH TD SCH (18:58)
[2016-11-27] MEDS: DUONEB (A & A) INH SCH ×2 (19:49→23:00)
[2016-11-27] MEDS: KLONOPIN PO PRN (19:59)
[2016-11-27] MEDS: NEURONTIN PO SCH (19:59)
[2016-11-27] MEDS: CATAPRES PO SCH (20:00)
[2016-11-27] MEDS ORDERED: ANUSOL-HC CREAM PR PRN (23:31)
[2016-11-27] MEDS ORDERED: TUCKS HEMORRHOIDAL OINTMENT PR PRN (23:49)
[2016-11-28] MEDS: ZOFRAN IV PRN ×3 (00:31→21:45)
[2016-11-28] MEDS: DILAUDID IV PRN ×7 (03:41→21:38)
[2016-11-28] MEDS ORDERED: PREPARATION H OINT TOP PRN (03:46)
[2016-11-28] MEDS: DUONEB (A & A) INH SCH ×6 (04:06→23:12)
[2016-11-28 07:10] LABS: AGAP 11; BUN 3 mg/dL (8-22); CALCIUM 7.9 mg/dL (8.8-10.2); CHLORIDE 107 mmol/L (98-107); COSMO 275; IRON SATURATION 9 %; POTASSIUM 3.4 mmol/L (3.5-5.1); SODIUM 140 mmol/L (136-145); TCO2 22 mmol/L (25-35); TIBC 218 ug/dL; TOTAL IRON 20 ug/dL (49-151); UNBOUND IRON 198 ug/dL (112-346)
[2016-11-28 07:27] LABS: HEMATOCRIT 25.1 % (37.0-47.0); HEMOGLOBIN 8.3 g/dL (12.0-16.0); MCH 30.9 PG (27-31); MCHC 33.1 g/dL (33-37); MCV 93.3 FL (81-99); MPV 12.1 FL (7.4-10.4); RBC 2.69 XMIL (4.2-5.4)
[2016-11-28 07:34] LABS: FERRITIN 53 ng/mL (13-150)
[2016-11-28] MEDS ORDERED: RELISTOR SUBQ ONE (07:49)
[2016-11-28] MEDS ORDERED: CATAPRES PO SCH (09:00)
[2016-11-28] MEDS ORDERED: NEURONTIN PO SCH (09:00)
[2016-11-28] MEDS: NEURONTIN PO SCH ×3 (09:02→16:04)
[2016-11-28] MEDS: NICODERM PATCH TD SCH (09:02)
[2016-11-28] MEDS: CATAPRES PO SCH ×3 (09:02→16:04)
[2016-11-28] MEDS: LOVENOX SUBQ SCH (09:03)
[2016-11-28] MEDS: PATIENT'S OWN MED PO SCH (09:04)
[2016-11-28] MEDS: NS 1,000 ML IV SCH ×3 (10:41→18:22)
--- NOTE | 2016-11-28 11:21 | PROGRESS NOTE ---
DATE: 11/28/2016 SUBJECTIVE: Mrs. Maurice is a 26-year-old female with a history of CML and chronic medical noncompliance who was admitted yesterday with acute on chronic abdominal pain. A CT in the ER showed that she had massive splenomegaly. She was also noted to have a white count of 460,000. This morning the patient states that her abdominal pain is worse, she reports nausea but no vomiting. Denies any diarrhea overnight. She is resting in bed comfortably without distress noted. No acute events noted overnight by the nursing staff. OBJECTIVE DATA: Vital Signs: Blood pressure is 131/81, heart rate 104, respiratory rate 18, O2 saturation 96% on room air. Temperature is 98.8 degrees. General: This is a chronically ill and disheveled appearing 26-year-old female, lying in hospital bed in no acute distress. Neurologic: The patient was sleeping when I came in the room but awoke to verbal stimulus. She is alert and oriented. Follows commands without focal deficits. HEENT: Head atraumatic and normocephalic. Her pupils are equal, round, reactive to light. Oral mucosa is moist. Trachea is midline. Neck is supple. No JVD. Chest: Clear to auscultation bilaterally. Cardiovascular: Regular rate and rhythm. S1-S2 is noted. No murmurs. Gastrointestinal: Slightly distended and diffusely tender to palpation. Splenomegaly is noted about the entire left abdomen. Bowel sounds are hypoactive. Extremities: Without edema, clubbing or cyanosis. Pulses are palpable bilaterally. DIAGNOSTIC DATA: WBC 487,009. Hemoglobin 8.3, hematocrit 25.1, platelet count is 104,000. Sodium 140, potassium 3.4, chloride 107, CO2 22, anion gap 11, BUN 11, creatinine 1, glucose 86, calcium 7.9, iron 20, TIBC 218, % sat 9, unsaturated iron binding 198, ferritin 53, vitamin B12 greater than 2000. Folate 8.6. ASSESSMENT AND PLAN: 1. Abdominal pain: Likely secondary to her massive splenomegaly. We will continue with pain medication, IV fluids and bowel rest. 2. Chronic myelogenous leukemia: White count this morning is 487,000. We will continue Sprycel and Hematology has been consulted. 3. Iron deficiency anemia as well as folate deficiency anemia: We will start Icar and folate supplementation. 4. Hypokalemia: We will replace and recheck in the morning, along with magnesium. 5. Nicotine dependence: Patient has been highly advised to quit smoking. We will continue daily nicotine cessation education and continue with nicotine patch. 6. Medical noncompliance: Patient has been advised to continue with her medical plan as directed by Dr. Weinstein. 7. Deep venous thrombosis prophylaxis with Lovenox. Further recommendations to follow. Dictated by LONG Castillo for Lawson Mantilla MD cc: LONG Castillo MD
[2016-11-28] MEDS: ICAR-C PO SCH (12:07)
[2016-11-28] MEDS: FOLIC ACID PO SCH (12:07)
[2016-11-28] MEDS: KLONOPIN PO PRN ×2 (15:56→21:38)
[2016-11-29] MEDS: DILAUDID IV PRN ×12 (00:54→23:45)
[2016-11-29] MEDS: NS 1,000 ML IV SCH ×3 (02:02→18:03)
[2016-11-29] MEDS: DUONEB (A & A) INH SCH ×5 (03:40→23:03)
[2016-11-29] MEDS: ZOFRAN IV PRN ×3 (03:46→18:03)
[2016-11-29] MEDS: KLONOPIN PO PRN ×2 (03:46→20:03)
[2016-11-29 07:56] LABS: HEMATOCRIT 23.6 % (37.0-47.0); HEMOGLOBIN 8.3 g/dL (12.0-16.0); MCH 33.6 PG (27-31); MCHC 35.2 g/dL (33-37); MCV 95.5 FL (81-99); MPV 11.7 FL (7.4-10.4); RBC 2.47 XMIL (4.2-5.4)
[2016-11-29 08:16] LABS: AGAP 10; BUN 3 mg/dL (8-22); CHLORIDE 106 mmol/L (98-107); COSMO 275; POTASSIUM 2.9 mmol/L (3.5-5.1); SODIUM 140 mmol/L (136-145); TCO2 24 mmol/L (25-35)
[2016-11-29] MEDS: ICAR-C PO SCH (08:45)
[2016-11-29] MEDS: FOLIC ACID PO SCH (08:45)
[2016-11-29] MEDS: CATAPRES PO SCH ×3 (08:45→18:03)
[2016-11-29] MEDS: NEURONTIN PO SCH ×3 (08:45→18:03)
[2016-11-29] MEDS: PATIENT'S OWN MED PO SCH (08:46)
[2016-11-29] MEDS: NICODERM PATCH TD SCH (08:46)
[2016-11-29] MEDS: LOVENOX SUBQ SCH (08:46)
[2016-11-29] MEDS ORDERED: KLOR-CON PO ONE (10:00)
--- NOTE | 2016-11-29 12:06 | PROGRESS NOTE ---
DATE: 11/29/2016 SUBJECTIVE: The patient appears to be more comfortable. No fever, no chills, no nausea, vomiting, or diarrhea. No constitutional symptoms. OBJECTIVE: Vital signs: Blood pressure 139/89, pulse ranging from 99 to 118, temperature 98.9, T- max of 99.1, sat 95% on room air. General appearance: White female in no acute distress. HEENT: Anicteric sclerae and conjunctivae. Neck: Supple, no JVD, no bruit. Cardiovascular: S1, S2, normal rate and rhythm, no murmur, rubs, or gallop. Pulmonary: Clear to auscultation bilaterally. GI: Soft, nontender, nondistended, normoactive bowel sounds. Musculoskeletal: No clubbing, cyanosis, or edema. LABORATORY: Her white count today is 412,000, hemoglobin 8.3, hematocrit 23.6, platelets 92,000. Chemistry: Sodium 140, potassium 2.9, chloride 106, bicarb 24, BUN 3, creatinine 0.8, glucose 84. ASSESSMENT AND PLAN: This is a 26-year-old with chronic myelogenous leukemia admitted to the hospital for abdominal pain with fever and chills. 1. Chronic myelogenous leukemia. Is known to Dr. Weinstein who was consulted. He saw the patient yesterday. No treatment has been initiated. Will continue supportive care. The patient is still on broad-spectrum antibiotics. Will discontinue Lovenox since she started having thrombocytopenia. 2. Anemia of chronic disease probably secondary to her chronic myelogenous leukemia. 3. Tachycardia. Will continue IV fluid, supportive care, start the patient on a diet since her nausea and vomiting have resolved. 4. Pain secondary to chronic myelogenous leukemia. Will continue Dilaudid. 5. Hypokalemia. Will give her 80 mEq of KCl today. Her magnesium is normal.
[2016-11-29] MEDS ORDERED: OFIRMEV 1000 MG/ISOTONIC SOLN 1,000 MG/100 ML BOTTLE IV PRN (22:06)
[2016-11-29] MEDS ORDERED: DILAUDID IV ONE (22:06)
[2016-11-30] MEDS: DILAUDID IV PRN ×9 (02:45→22:58)
[2016-11-30] MEDS: CLINDAMYCIN 600 MG/NS 600 MG/50 ML IVPB IV SCH ×3 (02:55→18:00)
[2016-11-30] MEDS: DUONEB (A & A) INH SCH ×6 (03:58→23:34)
[2016-11-30 07:11] LABS: HEMATOCRIT 23.1 % (37.0-47.0); HEMOGLOBIN 8.3 g/dL (12.0-16.0); MCH 34.4 PG (27-31); MCHC 35.9 g/dL (33-37); MCV 95.9 FL (81-99); MPV 12.1 FL (7.4-10.4); RBC 2.41 XMIL (4.2-5.4)
[2016-11-30 07:36] LABS: AGAP 12; BUN 4 mg/dL (8-22); CHLORIDE 104 mmol/L (98-107); COSMO 276; POTASSIUM 3.7 mmol/L (3.5-5.1); SODIUM 140 mmol/L (136-145); TCO2 24 mmol/L (25-35)
[2016-11-30] MEDS: ICAR-C PO SCH (08:35)
[2016-11-30] MEDS: NEURONTIN PO SCH ×3 (08:35→17:23)
[2016-11-30] MEDS: NICODERM PATCH TD SCH (08:35)
[2016-11-30] MEDS: FOLIC ACID PO SCH (08:35)
[2016-11-30] MEDS: CATAPRES PO SCH ×3 (08:35→17:23)
[2016-11-30] MEDS: PATIENT'S OWN MED PO SCH (08:36)
--- NOTE | 2016-11-30 08:36 | PROGRESS NOTE ---
DATE: 11/30/2016 SUBJECTIVE: The patient has no complaints abdominal pain. The nursing staff reported the patient has pus coming out of her gums. No fever, no chills overnight. PHYSICAL EXAMINATION: Vital Signs: Blood pressure is 133/83, pulse of 121, respirations 22, temperature of 98.6 degrees, T-max of 99.3 degrees, saturation 91% on 2 L nasal cannula. General Appearance: Well-developed, well-nourished, white female in no acute distress. HEENT: Poor dentition. She has significant gum disease and has pus coming out of her gums when pressing on it. No significant pain. Neck: Supple. No JVD. No bruit. Cardiovascular: S1 and S2. Normal rate and rhythm. No murmur, rubs, or gallops. Pulmonary: Clear to auscultation bilaterally. GI: Soft, nontender, nondistended. Normoactive bowel sounds. Musculoskeletal: No clubbing, cyanosis, or edema. LABORATORY: Her white count is 436,000, hemoglobin 8.3, hematocrit of 23.1, platelets of 86,000. Chemistry: Sodium of 140, potassium 3.7, chloride 104, bicarb 24, BUN 4, creatinine 0.9, glucose of 95. ASSESSMENT AND PLAN: This is a 26-year-old, white female admitted to the hospital for abdominal pain with a white count in the 400,000s. 1. Chronic myeloid leukemia, known to Dr. Weinstein who saw the patient in the past. No treatment or any notes from his service is on the computer yet but the patient stated that he has seen her. We will continue with conservative management. Continue with supportive care. Control her constitutional symptoms. 2. Gum disease. We agree with clindamycin. No obvious source of infections. We do not want to put the patient on broad-spectrum antibiotics just yet. 3. Hypertension and tachycardia. Put the patient on Lopressor 25 mg twice a day. Decrease the clonidine to 0.1 mg. Continue pain control. Continue intravenous fluids. Continue supportive care.
[2016-11-30] MEDS: LOPRESSOR PO SCH ×2 (08:41→20:35)
[2016-11-30] MEDS: ZOFRAN IV PRN ×3 (08:43→22:12)
[2016-11-30] MEDS ORDERED: LOPRESSOR PO SCH (09:00)
[2016-11-30] MEDS: NS 1,000 ML IV SCH ×2 (11:11→17:30)
--- NOTE | 2016-11-30 12:18 | Diag Imaging Result Doc PS360 ---
EXAM: CHEST-2 VIEWS INDICATION: Decreased Lung Sounds Arya. Bases, Hypoxia TECHNIQUE: 2 views COMPARISON: 10/03/2016 FINDINGS: Inspiration is somewhat suboptimal. There is suggestion of subsegmental atelectasis at the lung bases. The lungs are grossly clear, otherwise. There is no discrete pleural fluid collection or pneumothorax. The cardiomediastinal silhouette and central vasculature are grossly unremarkable. IMPRESSION: Suggestion of mild bibasilar subsegmental atelectasis. No definite acute pathology, otherwise. Electronically signed by Shravan Perkins 11/30/2016 12:15 PM
[2016-11-30] MEDS: KLONOPIN PO PRN ×2 (13:36→20:39)
[2016-12-01] MEDS: CLINDAMYCIN 600 MG/NS 600 MG/50 ML IVPB IV SCH ×3 (01:46→17:46)
[2016-12-01] MEDS: DILAUDID IV PRN ×3 (01:46→08:47)
[2016-12-01] MEDS: ZOFRAN IV PRN ×6 (02:00→22:21)
[2016-12-01] MEDS: DUONEB (A & A) INH SCH ×6 (03:10→23:13)
[2016-12-01] MEDS: NEURONTIN PO SCH ×3 (08:39→17:45)
[2016-12-01] MEDS: ICAR-C PO SCH (08:39)
[2016-12-01] MEDS: FOLIC ACID PO SCH (08:40)
[2016-12-01] MEDS: CATAPRES PO SCH ×3 (08:40→17:44)
[2016-12-01] MEDS: LOPRESSOR PO SCH ×3 (08:40→23:15)
[2016-12-01] MEDS: NS 1,000 ML IV SCH ×4 (08:41→17:47)
[2016-12-01] MEDS: NICODERM PATCH TD SCH (08:41)
[2016-12-01] MEDS: KLONOPIN PO PRN ×2 (08:46→19:46)
[2016-12-01] MEDS: PATIENT'S OWN MED PO SCH (09:49)
[2016-12-01] MEDS ORDERED: NARCAN 0.4 MG in LR 1,000 ML IV PRN (11:06)
[2016-12-01] MEDS ORDERED: ZOFRAN IV PRN (11:06)
[2016-12-01] MEDS ORDERED: NARCAN IV PRN (11:06)
[2016-12-01] MEDS: DILAUDID PCA VIAL IV PRN (11:39)
[2016-12-01 14:26] LABS: HEMATOCRIT 26.8 % (37.0-47.0); HEMOGLOBIN 9.2 g/dL (12.0-16.0); MANUAL DIFF NEEDED? NO; MCH 31.7 PG (27-31); MCHC 34.3 g/dL (33-37); MCV 92.4 FL (81-99); MPV 11.8 FL (7.4-10.4); PLT 123 X1000 (130-400)
[2016-12-01 14:54] LABS: AGAP 17; ALKALINE PHOSPHATASE 102 U/L (32-104); BUN 3 mg/dL (8-22); CALCIUM 8.9 mg/dL (8.8-10.2); CHLORIDE 97 mmol/L (98-107); COSMO 267; GOT 35 U/L (10-30); GPT 6 U/L (10-36); SODIUM 136 mmol/L (136-145); TCO2 22 mmol/L (25-35); TOTAL BILIRUBIN 0.25 mg/dL (0.20-1.00); TOTAL PROTEIN 8.2 g/dL (6.3-8.3)
--- NOTE | 2016-12-01 15:46 | PROGRESS NOTE ---
DATE: 12/01/2016 SUBJECTIVE: Patient reports increasing pain in the spleen. Denies any fever, chills. OBJECTIVE: Vital Signs: Temperature 98.3 degrees, heart rate 120, respiratory rate 20, blood pressure 122/72, O2 saturation 91% 2 L nasal cannula. General: This is a 26-year-old female lying in bed in no acute distress. HEENT: Head is normocephalic, atraumatic. Anicteric sclerae and pale conjunctivae. Mucous membranes moist. Neck: Supple. No JVD noted. No carotid bruits. No lymphadenopathy. No thyromegaly. Cardiovascular Exam: S1-S2 heard. No murmurs, gallops, or rubs. Regular rate and rhythm. Respiratory: Clear bilaterally to auscultation. No work of breathing or using accessory muscles. Abdomen: Soft with splenomegaly noted, painful to palpation. Bowel sounds present. No organomegaly. Extremities: No clubbing, cyanosis, edema. Peripheral pulses present in both legs. Neurological: Patient alert, oriented x3. Moves 4 extremities. Cranial nerves 2-12 grossly normal. LABORATORY DATA: White cell count is greater than 563,000 with potassium of 3.0. ASSESSMENT AND PLAN: 1. Chronic mild leukemia. following this patient. Unfortunately despite receiving this treatment this patient white cell count keeps rising so will follow recommendations from him. 2. Abdominal pain secondary to massive splenomegaly. Patient was receiving Dilaudid that we prefer to change to CRISIS MANAGER pump and now the patient is more stable. 3. Hypertension. I think patient is tachycardiac because of the pain, now the pain is much better control and blood pressures with Lopressor is definitely also better controlled. Will continue with the same management. cc: Sree Brown MD
[2016-12-01] MEDS: LR 1,000 ML IV SCH (17:46)
[2016-12-01] MEDS: TYLENOL PO PRN (22:24)
[2016-12-02] MEDS: CLINDAMYCIN 600 MG/NS 600 MG/50 ML IVPB IV SCH ×3 (02:30→17:56)
[2016-12-02] MEDS: NS 1,000 ML IV SCH ×3 (04:07→17:05)
[2016-12-02] MEDS: DUONEB (A & A) INH SCH ×6 (04:26→22:39)
[2016-12-02] MEDS: ZOFRAN IV PRN ×3 (05:34→21:25)
[2016-12-02 09:57] LABS: FLOW CYTOMETERY SOURCE WHOLE BLOOD; LEUKEMIA LYMPHOMA BY FLOW REFERRED FOR TESTING
[2016-12-02] MEDS: LOPRESSOR PO SCH ×2 (10:06→21:24)
[2016-12-02] MEDS: FOLIC ACID PO SCH (10:06)
[2016-12-02] MEDS: ICAR-C PO SCH (10:06)
[2016-12-02] MEDS: NICODERM PATCH TD SCH (10:06)
[2016-12-02] MEDS: CATAPRES PO SCH ×3 (10:07→16:51)
[2016-12-02] MEDS: NEURONTIN PO SCH ×3 (10:07→16:52)
[2016-12-02] MEDS: KLONOPIN PO PRN ×3 (10:30→21:24)
[2016-12-02] MEDS: HYDREA PO SCH (10:31)
[2016-12-02] MEDS: ZYLOPRIM PO SCH ×2 (10:32→21:24)
[2016-12-02] MEDS: LR 1,000 ML IV SCH (10:51)
[2016-12-02] MEDS: DILAUDID PCA VIAL IV PRN (11:24)
--- NOTE | 2016-12-02 13:12 | Diag Imaging Result Doc PS360 ---
EXAM: ABD/PELVIS/PULM ARTERIES - 12/02/2016 HISTORY: severe new onset abdominal TECHNIQUE: With intravenous contrast. Dose reduction protocol. COMPARISON: 11/27/2016 FINDINGS: There are no filling defects identified in the pulmonary arteries. Inspiration is somewhat shallow. There is a small left pleural effusion which is increased. There is dependent and basilar atelectasis again seen. There is some increased atelectasis at the posterior left base compared to the prior exam. There is hazy atelectasis elsewhere. There is no pneumothorax identified. There is massive splenomegaly similar to the previous exam. There is no discrete focal splenic lesion identified. There are no acute abnormalities of the liver or pancreas identified. There are some small low-density gallstones in the gallbladder again seen. There is no pericholecystic inflammation identified. The right kidney is congenitally absent. There is compensatory hypertrophy of the left kidney, which is inferiorly and medially displaced by the spleen, similar to the prior exam. There is no left hydronephrosis seen. There is no evidence of bowel obstruction. There is a large amount retained fecal debris in the colon similar to the prior exam. There is no free air or abscess identified. Images of pelvis show left ovarian cysts similar to the prior exam. There is minimal free fluid in the pelvis. IMPRESSION: No evidence of pulmonary embolism. Increased atelectasis at posterior left lung base. Small left pleural effusion which is increased. Massive splenomegaly similar to prior exam. No discrete focal splenic lesion. Small gallstones. No pericholecystic inflammation. Congenitally absent right kidney. No left hydronephrosis. Substantial constipation. No bowel obstruction. No abscess. No free air. Left ovarian cysts similar to prior exam. Small amount of free fluid in pelvis. Electronically signed by Demetri Tran 12/02/2016 1:09 PM
--- NOTE | 2016-12-02 14:31 | PROGRESS NOTE ---
DATE: 12/02/2016 SUBJECTIVE: Patient reports severe abdominal pain that started today morning in the left upper quadrant. No fever, no chills, she was experiencing also some shortness of breath. OBJECTIVE: Vital Signs: Temperature 98.2 degrees, heart rate 120, respiratory rate 20, blood pressure 147/113, O2 saturation 93% on 2 L nasal cannula. General Examination: This is a 26- year-old female lying in bed in moderate distress because of abdominal pain. HEENT: Head is normocephalic, atraumatic. Anicteric sclerae and pale conjunctivae. Mucous membranes moist. Neck: Supple. No JVD noted. No carotid bruits. No lymphadenopathy. No thyromegaly. Cardiovascular: S1 and S2 heard. No murmurs, gallops, or rubs. Regular rate and rhythm. Respiratory: Clear bilaterally to auscultation. No work of breathing or using accessory muscles. Abdomen: Soft with massive splenomegaly noted painful to palpation. Bowel sounds present. No organomegaly but there is signs of peritoneal irritation because the abdomen is very stiff with rebound mostly in the left upper quadrant. Extremities: No clubbing, cyanosis, or edema. Peripheral pulses present in both legs. Neurological: Patient alert and oriented x3. Moves 4 extremities. LABORATORY DATA: Labs are still pending, the labs from today are not back yet. ASSESSMENT AND PLAN: 1. Chronic myeloid leukemia. Dr. Weinstein following this patient. The labs from today are still pending. Apparently they are supposed to do a bone marrow aspiration today, will see how the patient does. 2. Worsening abdominal pain secondary to massive splenomegaly. The physical exam from today in compared with yesterday shows like a very stiff abdomen definitely more rigid and looks like there is a peritoneal irritation. Would prefer to have general surgery on board to have any input and will go from there. 3. Hypertension. Blood pressure is well controlled. Will continue with the same management. cc: Sree Brown MD
[2016-12-02 14:55] LABS: HEMATOCRIT 24.2 % (37.0-47.0); HEMOGLOBIN 8.2 g/dL (12.0-16.0); MANUAL DIFF NEEDED? YES; MCH 31.2 PG (27-31); MCHC 33.9 g/dL (33-37); PLT 115 X1000 (130-400); RBC 2.63 XMIL (4.2-5.4)
[2016-12-02 15:00] LABS: AGAP 12; BUN 3 mg/dL (8-22); CALCIUM 8.9 mg/dL (8.8-10.2); CHLORIDE 97 mmol/L (98-107); COSMO 268; POTASSIUM 2.8 mmol/L (3.5-5.1); SODIUM 136 mmol/L (136-145); TCO2 27 mmol/L (25-35)
[2016-12-02 15:16] LABS: EOS 3 % (1-10); LYMPHS 37 % (21-51)
[2016-12-02] MEDS: ZANAFLEX PO PRN ×2 (17:56→21:24)
--- NOTE | 2016-12-02 18:54 | CONSULTATION ---
DATE OF CONSULTATION: 12/02/2016 CHIEF COMPLAINT: Abdominal pain. HISTORY: This is an unfortunate 26-year-old, white female, with a history of chronic myelogenous leukemia and massive splenomegaly. She presents with abdominal pain, nausea and vomiting. She apparently has had previous admissions with similar complaints. She has a massively enlarged spleen as noted on exam and on CT scan. This is the site of her pain. OTHER MEDICAL PROBLEMS: Include medical noncompliance, nicotine dependence, depression, fibromyalgia, hypertension, ovarian cyst. PAST SURGICAL HISTORY: Previous surgeries include appendectomy, tonsillectomy and bone marrow aspirations. FAMILY HISTORY: Noncontributory. SOCIAL HISTORY: She smokes half pack per day. Denies alcohol use. She has moved around from place to place. Currently lives in [place]. MEDICATIONS: Listed. REVIEW OF SYSTEMS: As noted above. PHYSICAL EXAMINATION: Vital Signs: Afebrile. Heart rate is 120, blood pressure 147/113. No cervical adenopathy. Lungs: Bilateral breath sounds. Heart: Regular rhythm. Abdomen: Reveals a massively enlarged spleen with the border coming over the right side and down toward her pelvis. She has no peritoneal signs. DIAGNOSTICS/LABS: White count is 101883, hemoglobin 8.2, hematocrit 24, potassium 2.8. ASSESSMENT: Massive splenomegaly which no doubt is the source of her pain. Splenectomy would be only upon the recommendation of her oncologist. We will follow along. There is no urgent operative indication at this time. Thanks for the opportunity to see her. cc: Cristopher Ching MD
[2016-12-03] MEDS: NS 1,000 ML IV SCH ×3 (00:41→19:32)
[2016-12-03] MEDS: DUONEB (A & A) INH SCH ×6 (02:30→22:36)
[2016-12-03] MEDS: ZOFRAN IV PRN ×4 (02:32→18:03)
[2016-12-03] MEDS: CLINDAMYCIN 600 MG/NS 600 MG/50 ML IVPB IV SCH ×3 (02:32→18:04)
[2016-12-03] MEDS ORDERED: POTASSIUM CHLORIDE 60 MEQ in NS 500 ML IV SCH (07:45)
[2016-12-03 08:17] LABS: HEMATOCRIT 23.6 % (37.0-47.0); HEMOGLOBIN 7.9 g/dL (12.0-16.0); MANUAL DIFF NEEDED? YES; MCH 31.2 PG (27-31); MCHC 33.5 g/dL (33-37); MCV 93.3 FL (81-99); MPV 11.8 FL (7.4-10.4); PLT 115 X1000 (130-400); RBC 2.53 XMIL (4.2-5.4)
--- NOTE | 2016-12-03 08:39 | CONSULTATION ---
DATE OF CONSULTATION: 11/28/2016 ADMITTING PHYSICIAN: Dr. Franz. REQUESTING PHYSICIAN: Dr. Franz . We appreciate this consult. CHIEF COMPLAINT: CML. HISTORY OF PRESENT ILLNESS: Ms. Maurice is a 26-year-old, female well known to us with a history of CML who has been noncompliant on Sprycel with multiple hospitalizations. The patient presented to [facility] secondary to 3 days of worsening abdominal pain with nausea and vomiting. This admission is similar to prior admissions. She does report left upper quadrant pain that radiates to her left shoulder with nausea and vomiting. The patient has not had any B symptoms at this time. She does report that she has had some lower extremity edema. A CT of the abdomen and pelvis performed in the emergency department does show massive splenomegaly which is not different from prior exams. Additionally, substantial constipation was demonstrated. The patient did undergo pulmonary arteriogram which was negative for pulmonary embolism. Upon presentation, her white blood cell count was 563,000. The patient also presented with anemia which is chronic as well. We are consulted secondary to CML. PAST MEDICAL HISTORY: 1. CML. 2. Massive splenomegaly. 3. Medical noncompliance. 4. Nicotine dependence. 5. Depression. 6. Fibromyalgia. 7. Ovarian cyst. 8. Hypertension. PAST SURGICAL HISTORY: 1. Appendectomy. 2. Tonsillectomy. SOCIAL HISTORY: The patient smokes 1/2 pack cigarettes a day. She denies any alcohol or illicit drug use. FAMILY HISTORY: Negative for any hematologic or oncologic problem. MEDICATIONS ON ADMISSION: 1. Neurontin. 2. Sprycel. 3. Catapres. 4. Klonopin. ALLERGIES: To penicillin, Toradol, meperidine, Reglan, morphine, Rocephin, and Nubain. REVIEW OF SYSTEMS: A 14 point review of systems was obtained and is negative except for as mentioned in the HPI. PHYSICAL EXAMINATION: General: Ms. Maurice is a 26-year-old, female, lying supine in bed. Complaining of abdominal pain but otherwise in no acute distress. Vital Signs: Temperature 98.8 degrees, blood pressure 131/81, heart rate 92, respirations 18, O2 saturation 96% on 2 L nasal cannula O2. HEENT: Normocephalic, atraumatic. Mucous membranes pink and moist. Sclerae are anicteric. Extraocular movements intact. Neck: Supple. Lungs: Clear to auscultation bilaterally. Chest expansion is equal bilaterally. CV: S1 and S2 are heard without murmur, rub, or gallop. Abdomen: Firm in the left upper quadrant with significant tenderness to palpation. Massive splenomegaly is demonstrated. The patient does have decreased bowel sounds throughout. No rebound or guarding is noted. Extremities: Without clubbing, cyanosis, or edema. Dermatologic: No rashes, bruises, or lesions. Neurologic: The patient is awake, alert, and oriented x3. She has no focal deficit at this time. LABORATORY DATA: Hemoglobin 8.8, hematocrit 25.3, white blood cell count 563, 000, platelet count 121,000. D-dimer is 1.58. Sodium 140, potassium 3, chloride 103, CO2 is 25, BUN 4, creatinine 1.1, glucose 77, calcium is 8.7, magnesium 2. Iron is 20, iron saturation is 9% , TIBC 218, B12 is greater than 2000, folate 8.6. Urine drug screen is positive for opiates and benzodiazepine. CT of the abdomen and pelvis reveals bilateral basilar atelectasis with massive splenomegaly, constipation, and gallstones. ASSESSMENT AND PLAN: 1. Chronic myeloid leukemia with noncompliance on Sprycel. The patient additionally is noncompliant with followup visits and has not been seen in clinic since 2016. White blood cell count on admission is 563,000. We would encourage Sprycel compliance as well as clinic followup compliance at this time. 2. Abdominal pain secondary to constipation and hypersplenism. Would continue pain medications at this time. 3. Anemia, stable at this time with a hemoglobin of 8.8. Would monitor CBC and transfuse as necessary. 4. Hypokalemia with a potassium of 3.4 today. Replete potassium per protocol. 5. Protein calorie malnutrition. Would encourage small fractionated meals at this time. 6. Tobacco dependence. We encourage cessation. 7. We will follow along with you and make further recommendations pending outcomes. The above reflects the history, exam, assessment, and plan of Dr. Weinstein. Dictated by LONG Sanchez for Jimmie Weinstein MD cc: LONG Sanchez MD [facility]
[2016-12-03] MEDS: HYDREA PO SCH (08:45)
[2016-12-03] MEDS: LOPRESSOR PO SCH ×2 (08:45→22:48)
[2016-12-03] MEDS: NEURONTIN PO SCH ×3 (08:45→18:03)
[2016-12-03] MEDS: ICAR-C PO SCH (08:45)
[2016-12-03] MEDS: NICODERM PATCH TD SCH (08:45)
[2016-12-03] MEDS: CATAPRES PO SCH ×3 (08:45→18:02)
[2016-12-03] MEDS: FOLIC ACID PO SCH (08:46)
[2016-12-03] MEDS: ZYLOPRIM PO SCH ×2 (08:49→22:48)
[2016-12-03 08:50] LABS: BANDS 18 % (0-1); LYMPHS 6 % (21-51); MONO 2 % (1-9); NRBC 2 % (0-0)
[2016-12-03] MEDS: KLONOPIN PO PRN ×3 (09:12→22:48)
[2016-12-03] MEDS: TYLENOL PO PRN (10:30)
[2016-12-03] MEDS: KLOR-CON PO SCH ×2 (10:30→15:58)
[2016-12-03] MEDS: DILAUDID PCA VIAL IV PRN (10:40)
[2016-12-03] MEDS: ZANAFLEX PO PRN ×2 (10:56→19:32)
[2016-12-03] MEDS ORDERED: VENOFER IV ONE (12:28)
[2016-12-03] MEDS: LR 1,000 ML IV SCH (12:35)
[2016-12-03] MEDS ORDERED: NS 250 ML ONE (13:08)
--- NOTE | 2016-12-03 16:42 | PROGRESS NOTE ---
DATE: 12/03/2016 SUBJECTIVE: Patient reports less abdominal pain. No fever. No chills. OBJECTIVE: Vital Signs: Temperature 98.2 degrees, heart rate 107, respiratory rate 24, blood pressure 135/71, O2 saturation 94% 2 L nasal cannula. General: This is a 23-year-old female lying in bed, in no acute distress. HEENT: Head is normocephalic, atraumatic. Anicteric sclerae and pale conjunctivae. Mucous membranes moist. Neck: Supple. No JVD noted. No carotid bruits. No lymphadenopathy. No thyromegaly. Cardiovascular: S1, S2 heard. No murmurs, gallops, or rubs. Regular rate and rhythm. Respiratory: Clear bilaterally to auscultation. No work of breathing or using accessory muscles. Abdomen: Soft, with massive splenomegaly noted that is painful to palpation. Bowel sounds present. No organomegaly. No signs of peritoneal irritation. Extremities: No clubbing, cyanosis, or edema. Peripheral pulses present in both legs Neurologic: Patient is alert and oriented x3. Moves 4 extremities. LABORATORY DATA: Reviewed. ASSESSMENT AND PLAN: 1. Chronic myeloid leukemia. Hematology-Oncology, Dr. Weinstein is following this patient. We will follow recommendations. 2. Worsening abdominal pain secondary to massive splenomegaly. By now this patient is doing good on CH[employer] pump. We will continue with the same management. 3. Hypertension. Blood pressure is well controlled. We will continue with the same medications. cc: Sree Brown MD
[2016-12-04] MEDS: NS 1,000 ML IV SCH ×3 (02:01→17:37)
[2016-12-04] MEDS: CLINDAMYCIN 600 MG/NS 600 MG/50 ML IVPB IV SCH ×3 (02:01→17:51)
[2016-12-04] MEDS: DUONEB (A & A) INH SCH ×6 (03:52→22:34)
[2016-12-04 07:19] LABS: HEMOGLOBIN 9.8 g/dL (12.0-16.0); MANUAL DIFF NEEDED? YES; MCH 31.1 PG (27-31); MCHC 33.8 g/dL (33-37); MCV 92.1 FL (81-99); MPV 11.4 FL (7.4-10.4); PLT 87 X1000 (130-400); RBC 3.15 XMIL (4.2-5.4)
[2016-12-04 08:13] LABS: BANDS 20 % (0-1); LYMPHS 2 % (21-51); MONO 2 % (1-9)
[2016-12-04] MEDS: HYDREA PO SCH ×2 (09:33→22:03)
[2016-12-04] MEDS: ICAR-C PO SCH (09:33)
[2016-12-04] MEDS: FOLIC ACID PO SCH (09:34)
[2016-12-04] MEDS: LOPRESSOR PO SCH ×2 (09:34→22:02)
[2016-12-04] MEDS: KLONOPIN PO PRN ×3 (09:34→22:02)
[2016-12-04] MEDS: NICODERM PATCH TD SCH (09:34)
[2016-12-04] MEDS: ZYLOPRIM PO SCH ×2 (09:34→22:02)
[2016-12-04] MEDS: NEURONTIN PO SCH ×3 (09:34→17:00)
[2016-12-04] MEDS: CATAPRES PO SCH ×3 (09:34→17:00)
[2016-12-04] MEDS: ZOFRAN IV PRN ×2 (09:38→17:03)
[2016-12-04] MEDS: LR 1,000 ML IV SCH ×2 (10:59→11:00)
[2016-12-04] MEDS: ZANAFLEX PO PRN ×2 (11:10→17:51)
[2016-12-04] MEDS ORDERED: VENOFER IV ONE (12:28)
[2016-12-04] MEDS ORDERED: DILAUDID IV PRN (12:49)
[2016-12-04] MEDS ORDERED: VENOFER 300 MG in NS 250 ML IV ONE (13:00)
--- NOTE | 2016-12-04 16:19 | PROGRESS NOTE ---
DATE: 12/04/2016 SUBJECTIVE: Patient has no focal complaints. She is still complaining significantly of abdominal pain. OBJECTIVE: Vital Signs: Blood pressure 128/74, heart rate 101, respiratory rate 19, temperature 98 degrees, 94% on 3 L. Cardiovascular: Regular rate and rhythm. Pulmonary: Bilateral breath sounds. Clear to auscultation. GI: Soft, tender, some distention. Bowel sounds are positive. LABORATORY DATA: White count 487, but that is down from 553. No chemistries done today. PROBLEM LIST: 1. Chronic myelogenous leukemia with profound leukocytosis but significant noncompliance. She is on Hydrea per Dr. Weinstein, which she is responding to. We will continue treatment and follow. 2. Hepatosplenomegaly related to her chronic myelogenous leukemia. We are going to continue treatment and not pursue surgical treatment at this point, and continue pain control. 3. Anemia, appears to be stable. 4. Hypokalemia. Will supplement and follow. DISPOSITION: Pending her white count and input from other consultants, I think when she is in the 200,000-250,000 range, if that can be achieved, we will work on trying to discharge her. cc: Jean-Claude Estrada MD
[2016-12-04] MEDS: DILAUDID IV PRN ×2 (16:57→22:03)
[2016-12-05] MEDS: NS 1,000 ML IV SCH ×3 (01:12→17:42)
[2016-12-05] MEDS: DILAUDID IV PRN ×7 (01:12→21:47)
[2016-12-05] MEDS: CLINDAMYCIN 600 MG/NS 600 MG/50 ML IVPB IV SCH ×4 (01:12→17:45)
[2016-12-05] MEDS: DUONEB (A & A) INH SCH ×6 (03:18→22:45)
[2016-12-05] MEDS: ZOFRAN IV PRN ×3 (04:36→21:47)
[2016-12-05 07:23] LABS: AGAP 10; BUN 5 mg/dL (8-22); CALCIUM 8.6 mg/dL (8.8-10.2); CHLORIDE 102 mmol/L (98-107); COSMO 277; POTASSIUM 3.7 mmol/L (3.5-5.1); SODIUM 140 mmol/L (136-145); TCO2 28 mmol/L (25-35)
[2016-12-05 07:34] LABS: HEMATOCRIT 29.2 % (37.0-47.0); MANUAL DIFF NEEDED? YES; MCH 31.3 PG (27-31); MCHC 34.2 g/dL (33-37); MCV 91.5 FL (81-99); MPV 12.4 FL (7.4-10.4); PLT 110 X1000 (130-400); RBC 3.19 XMIL (4.2-5.4)
[2016-12-05 07:38] LABS: BANDS 18 % (0-1); LYMPHS 2 % (21-51); MONO 2 % (1-9); NRBC 2 % (0-0)
[2016-12-05] MEDS: LOPRESSOR PO SCH ×2 (08:09→21:47)
[2016-12-05] MEDS: NICODERM PATCH TD SCH ×2 (08:09→08:12)
[2016-12-05] MEDS: FOLIC ACID PO SCH (08:09)
[2016-12-05] MEDS: ZYLOPRIM PO SCH ×2 (08:10→21:48)
[2016-12-05] MEDS: HYDREA PO SCH ×2 (08:10→21:48)
[2016-12-05] MEDS: ICAR-C PO SCH (08:10)
[2016-12-05] MEDS: CATAPRES PO SCH ×3 (08:10→16:20)
[2016-12-05] MEDS: NEURONTIN PO SCH ×3 (08:10→16:20)
[2016-12-05] MEDS: ZANAFLEX PO PRN ×2 (08:17→21:52)
[2016-12-05] MEDS: KLONOPIN PO PRN ×3 (11:36→21:52)
--- NOTE | 2016-12-05 12:33 | PROGRESS NOTE ---
DATE: 12/05/2016 SUBJECTIVE: The patient has no focal complaints. OBJECTIVE: Vital Signs: Blood pressure 139/87, heart rate 105 respiratory rate 19, temperature 98.6, 94% on 2 L. Cardiovascular: Regular rate and rhythm. Pulmonary: Bilateral breath sounds. Clear to auscultation. Gastrointestinal: Abdomen soft, nontender, nondistended. Bowel sounds are positive. LABORATORY DATA: Normal basic. White count is 480, which is decreased a little bit from 487. Hemoglobin and hematocrit 10 and 29, platelets of 110,000. PROBLEM LIST: 1. CML with leukocytosis. She is on high-dose Hydrea and seems to be responding. 2. Massive splenomegaly from her severe leukocytosis. She has significant pain but seems to be under good control. Unclear a little bit why she is on antibiotics. 3. Hypertension appears to be stable. DISPOSITION: She seems to be doing okay. I am not sure what her goal white count. Dr. Weinstein mentioned that she should feel clinically improved at 200,000 but I anticipate she is going to be here for several more days. cc: Jean-Claude Estrada MD
[2016-12-05] MEDS: AMBIEN PO PRN (21:54)
[2016-12-06] MEDS: DILAUDID IV PRN ×6 (00:42→19:42)
[2016-12-06] MEDS: ZOFRAN IV PRN ×3 (02:14→19:42)
[2016-12-06] MEDS: CLINDAMYCIN 600 MG/NS 600 MG/50 ML IVPB IV SCH ×2 (02:42→10:11)
[2016-12-06] MEDS: DUONEB (A & A) INH SCH ×6 (03:44→23:13)
[2016-12-06 07:12] LABS: HEMATOCRIT 28.5 % (37.0-47.0); HEMOGLOBIN 9.5 g/dL (12.0-16.0); MANUAL DIFF NEEDED? YES; MCH 30.9 PG (27-31); MCHC 33.3 g/dL (33-37); MCV 92.8 FL (81-99); MPV 11.5 FL (7.4-10.4); PLT 103 X1000 (130-400); RBC 3.07 XMIL (4.2-5.4)
[2016-12-06 07:33] LABS: BANDS 19 % (0-1); LYMPHS 1 % (21-51)
[2016-12-06] MEDS: NS 1,000 ML IV SCH ×3 (08:50→20:38)
[2016-12-06] MEDS: ICAR-C PO SCH (08:51)
[2016-12-06] MEDS: ZYLOPRIM PO SCH ×2 (08:51→20:38)
[2016-12-06] MEDS: FOLIC ACID PO SCH (08:51)
[2016-12-06] MEDS: NEURONTIN PO SCH ×3 (08:51→16:16)
[2016-12-06] MEDS: NICODERM PATCH TD SCH (08:51)
[2016-12-06] MEDS: CATAPRES PO SCH ×3 (08:52→16:16)
[2016-12-06] MEDS: LOPRESSOR PO SCH ×2 (08:52→20:37)
[2016-12-06] MEDS: HYDREA PO SCH ×2 (08:53→20:37)
[2016-12-06] MEDS ORDERED: HYDREA PO SCH (09:00)
--- NOTE | 2016-12-06 11:00 | PROGRESS NOTE ---
DATE: 12/06/2016 SUBJECTIVE: The patient reports that she is doing well. She has no acute complaints. OBJECTIVE: Vital Signs: Temperature 97.9 degrees, heart rate 105, respirations 20, blood pressure 131/79, O2 saturation 96% on 2 L nasal cannula. LABORATORY DATA: White blood cells 438.4, hemoglobin 9.5, hematocrit 28.5, platelets 103,000. PHYSICAL EXAMINATION: Cardiovascular: Tachycardia noted. Regular rhythm. Respiratory: Chest clear to auscultation bilaterally. Normal respiratory effort. Abdomen: Soft, nondistended, nontender. Positive bowel sounds. Musculoskeletal: No bony abnormalities. Extremities: No cyanosis, edema or swelling noted. ASSESSMENT AND PLAN: 1. Chronic myeloid leukemia. The patient is now receiving Hydrea 1000 mg in the morning and 1500 mg in the evening. The patient's white count is improving slowly. Continue to monitor and make further adjustments to Hydrea as needed. 2. Anemia. Overall stable at this time. Monitor closely. Transfuse p.r.n. 3. Abdominal pain. Persistent. Continue pain medications. Currently well controlled. 4. Hypokalemia. The patient has previously been repleted. Level improved. Continue to monitor. Dictated by LORENE Guerra for Cely Parisi MD cc: Cely Parisi MD I have seen and examined the patient and reviewed the chart. I agree with the above A/P. Continue Hydrea. Cely Parisi MD [facility]
[2016-12-06] MEDS: KLONOPIN PO PRN ×2 (13:01→20:37)
[2016-12-06] MEDS: ZANAFLEX PO PRN ×2 (14:27→20:37)
--- NOTE | 2016-12-06 14:53 | PROGRESS NOTE ---
DATE: 12/06/2016 SUBJECTIVE: Patient complaining of abdominal pain but that is controlled with current medications. OBJECTIVE: Blood pressure 123/76, heart rate of 95, respiratory rate 20, temperature 98.4 degrees.Cardiovascular: Regular rate and rhythm. Pulmonary: Bilateral breath sounds. Clear to auscultation. GI: Soft, nontender, nondistended. Bowel sounds are positive. Extremities: No clubbing or cyanosis. Lymphatics: No peripheral edema. LABORATORY DATA: White count 438, hemoglobin and hematocrit 9 and 28, platelets 103,000. PROBLEM LIST: 1. CML with significant leukocytosis. Will continue Hydrea. She does appear to be responding. 2. Massive splenomegaly. She appears to be stable. Continue pain control. 3. Hypertension. Appears to be stable. 4. Gingivitis. She has been on clindamycin. I am just going to complete 7 days today and stop that. DISPOSITION: Pending improvement. I would say possible discharge Thursday if she is stable. cc: Jean-Claude Estrada MD
[2016-12-06] MEDS: AMBIEN PO PRN (20:38)
[2016-12-07] MEDS: DILAUDID IV PRN ×8 (00:07→21:17)
[2016-12-07] MEDS: NS 1,000 ML IV SCH ×3 (01:16→13:45)
[2016-12-07] MEDS: ZANAFLEX PO PRN ×2 (02:46→16:47)
[2016-12-07] MEDS: KLONOPIN PO PRN ×3 (02:46→21:15)
[2016-12-07] MEDS: ZOFRAN IV PRN ×3 (02:46→21:17)
[2016-12-07] MEDS: DUONEB (A & A) INH SCH ×6 (03:23→23:05)
[2016-12-07 07:49] LABS: HEMOGLOBIN 9.7 g/dL (12.0-16.0); MANUAL DIFF NEEDED? YES; MCH 31.1 PG (27-31); MCHC 33.4 g/dL (33-37); MCV 92.9 FL (81-99); PLT 98 X1000 (130-400); RBC 3.12 XMIL (4.2-5.4)
[2016-12-07] MEDS: FOLIC ACID PO SCH (08:24)
[2016-12-07] MEDS: HYDREA PO SCH ×2 (08:24→21:15)
[2016-12-07] MEDS: ICAR-C PO SCH (08:24)
[2016-12-07] MEDS: NEURONTIN PO SCH ×3 (08:24→16:42)
[2016-12-07] MEDS: NICODERM PATCH TD SCH (08:24)
[2016-12-07] MEDS: CATAPRES PO SCH ×3 (08:24→16:41)
[2016-12-07] MEDS: ZYLOPRIM PO SCH ×2 (08:24→21:16)
[2016-12-07] MEDS: LOPRESSOR PO SCH ×2 (08:24→21:15)
[2016-12-07 08:48] LABS: BANDS 14 % (0-1); LYMPHS 2 % (21-51); UNIDENTIFIED CELLS 10 %
[2016-12-07] MEDS ORDERED: BENADRYL CREAM TOP PRN (14:26)
--- NOTE | 2016-12-07 18:12 | PROGRESS NOTE ---
DATE: 12/07/2016 SUBJECTIVE: Patient has no focal complaints except for some itching on her left wrist. Otherwise she feels about the same. OBJECTIVE: Vital signs: Blood pressure 142/85, heart rate 105, respiratory rate of 20, temperature 98 degrees, 95% on 2 L. Cardiovascular: Regular rate and rhythm. Pulmonary: Bilateral breath sounds. Clear to auscultation. GI: Soft, nontender, nondistended. Bowel sounds are positive. LABORATORY DATA: White count is down to 409, hemoglobin and hematocrit 9 and 29, platelets 98,000. PROBLEM LIST: 1. Chronic myelogenous leukemia with profound leukocytosis, leukemoid reaction. She is responding well to the Hydrea. Appreciate Dr. Weinstein's help. We will confer with him tomorrow about cutoff or when he feels comfortable for her to go home. 2. Massive splenomegaly. Continue pain control. This will slowly resolve as her leukocytosis comes down. We will need to make sure she has help with her medications to increase compliance. 3. Rash. She does have a vesicular rash over the anterior, it looks like could be a contact dermatitis but could also be early zoster, she is certainly at risk for that but we will continue to follow. cc: Jean-Claude Estrada MD
[2016-12-07] MEDS: AMBIEN PO PRN (21:15)
[2016-12-08] MEDS: DILAUDID IV PRN ×8 (00:20→23:34)
[2016-12-08] MEDS: ZANAFLEX PO PRN ×3 (00:20→23:37)
[2016-12-08] MEDS: DUONEB (A & A) INH SCH ×5 (03:17→19:44)
[2016-12-08] MEDS: NS 1,000 ML IV SCH ×3 (04:28→14:03)
[2016-12-08] MEDS: KLONOPIN PO PRN ×3 (04:29→20:25)
[2016-12-08 07:28] LABS: HEMATOCRIT 31.6 % (37.0-47.0); HEMOGLOBIN 10.7 g/dL (12.0-16.0); MANUAL DIFF NEEDED? YES; MCH 31.3 PG (27-31); MCHC 33.9 g/dL (33-37); MCV 92.4 FL (81-99); MPV 12.1 FL (7.4-10.4); PLT 108 X1000 (130-400); RBC 3.42 XMIL (4.2-5.4)
[2016-12-08 07:47] LABS: BANDS 20 % (0-1); LYMPHS 6 % (21-51); MONO 2 % (1-9)
[2016-12-08 07:49] LABS: LARGE PLATELETS 1+
[2016-12-08] MEDS: CATAPRES PO SCH ×3 (10:11→17:12)
[2016-12-08] MEDS: ICAR-C PO SCH (10:11)
[2016-12-08] MEDS: FOLIC ACID PO SCH (10:11)
[2016-12-08] MEDS: LOPRESSOR PO SCH ×2 (10:12→20:17)
[2016-12-08] MEDS: ZOFRAN IV PRN (10:13)
[2016-12-08] MEDS: ZYLOPRIM PO SCH ×2 (10:13→20:17)
[2016-12-08] MEDS: NICODERM PATCH TD SCH (10:20)
[2016-12-08] MEDS: HYDREA PO SCH ×2 (10:36→20:17)
[2016-12-08] MEDS: NEURONTIN PO SCH ×3 (10:36→17:12)
--- NOTE | 2016-12-08 13:38 | PROGRESS NOTE ---
DATE: 12/08/2016 SUBJECTIVE DATA: Mrs. Maurice is a 26-year-old female with a history of CML, who was admitted with abdominal pain and ultimately found to have massive splenomegaly and profound leukocytosis. She is being followed by hematology and is currently on hydroxyurea. Surgery has seen the patient and does not feel she has a good candidate for splenectomy secondary to her CML. Overnight the patient reports some mild epigastric abdominal pain but nothing worsening or acute. She is currently resting in bed comfortably without distress noted. No acute events noted overnight. OBJECTIVE DATA: Vital Signs: Blood pressure is 119/77, heart rate 88, respiratory rate is 18, O2 saturation 96% on room air. Temperature is 98.3 degrees. General: This is a chronically ill- appearing, 26-year-old female, lying in hospital bed, in no acute distress. Neurologic: The patient is awake, alert, oriented. She follows commands without focal deficits. HEENT: Head is atraumatic and normocephalic. Her pupils are equal, round, and reactive to light. Oral mucosa is moist. Trachea is midline. No JVD or carotid bruits. Chest: Clear to auscultation bilaterally. CV: Regular rate and rhythm. S1, S2 is noted. No murmurs, gallops, clicks, rubs. GI: Mild distention and tenderness to palpation diffusely. Bowel sounds are hypoactive. Extremities: Without edema, clubbing, or cyanosis. Pulses palpable bilaterally. DIAGNOSTIC DATA: WBC 427,000 hemoglobin 10.7, hematocrit 31.6, platelet count is 108,000. ASSESSMENT AND PLAN: 1. Abdominal pain: Secondary to massive splenomegaly. Currently she is not a surgical candidate. We would like to thank the surgeons for their evaluation. We will continue with pain medication and hopefully with a decrease in her leukocytes this has improved somewhat. 2. Chronic myelogenous leukemia with leukemoid reaction: Continue hydroxyurea and any recommendations per hematology/oncology. 3. Deep vein thrombosis prophylaxis with Lovenox. Further recommendations to follow. Dictated by LONG Castillo for Jean-Claude Estrada MD cc: LONG Castillo MD pt examined, agree with above APENOT MTDD
[2016-12-08] MEDS: AMBIEN PO PRN (20:25)
[2016-12-09] MEDS: DILAUDID IV PRN ×3 (03:33→10:05)
[2016-12-09] MEDS: NS 1,000 ML IV SCH (03:36)
[2016-12-09] MEDS: ZOFRAN IV PRN (03:36)
[2016-12-09 08:03] LABS: AGAP 11; BUN 8 mg/dL (8-22); CALCIUM 8.7 mg/dL (8.8-10.2); CHLORIDE 102 mmol/L (98-107); COSMO 273; POTASSIUM 3.5 mmol/L (3.5-5.1); SODIUM 138 mmol/L (136-145); TCO2 25 mmol/L (25-35)
[2016-12-09 08:15] LABS: HEMATOCRIT 30.5 % (37.0-47.0); MANUAL DIFF NEEDED? YES; MCH 30.7 PG (27-31); MCHC 32.8 g/dL (33-37); MCV 93.6 FL (81-99); PLT 99 X1000 (130-400); RBC 3.26 XMIL (4.2-5.4)
[2016-12-09] MEDS: DUONEB (A & A) INH SCH ×2 (08:42→10:46)
[2016-12-09] MEDS: CATAPRES PO SCH (10:06)
[2016-12-09] MEDS: NEURONTIN PO SCH (10:06)
[2016-12-09] MEDS: ICAR-C PO SCH (10:06)
[2016-12-09] MEDS: LOPRESSOR PO SCH (10:06)
[2016-12-09] MEDS: FOLIC ACID PO SCH (10:06)
[2016-12-09] MEDS: NICODERM PATCH TD SCH (10:07)
[2016-12-09] MEDS: ZYLOPRIM PO SCH (10:07)
[2016-12-09] MEDS: HYDREA PO SCH (10:07)
[2016-12-09 10:23] LABS: BANDS 20 % (0-1); LYMPHS 6 % (21-51); MONO 4 % (1-9)
--- NOTE | 2016-12-09 12:52 | PROGRESS NOTE ---
DATE: 12/09/2016 SUBJECTIVE: Today, Ms. Maurice still refers to be doing fine. She continues to have abdominal discomfort mainly at the left side. OBJECTIVE: Vital Signs: Blood pressure is 135/90, pulse of 104, respiration is 14, temperature is 98.5 degrees. General: Ms Maurice is a 26-year-old female. She is in bed, not in any acute distress. HEENT: Mucosa is pink and moist. Anicteric. Acyanotic. Neck is supple. Chest was clear. Cardiovascular: Regular rate and rhythm. Abdomen is soft, distended. There is a huge splenomegaly extending all the way from the left side to the hypogastrium crossing the midline to the right. Extremities: No pedal edema. COREMAKER EXPERIMENTAL: Patient is alert and oriented x4. There is no focal neurological deficit. LABORATORY DATA: WBC is down to 348,000. Hemoglobin is 10.4, platelet count of 99,000. There is 26% of segments, 20% of bands, 12% of metamyelocyte and 20% of myelocytes. There is 12% of unidentified cells. Chemistries reviewed is unremarkable. ASSESSMENT: 1. Abdominal pain likely due to underlying massive splenomegaly and also constipation. 2. Chronic myelogenous leukemia with very premature elements on the peripheral smear. Questionable for accelerated versus blast phase of chronic myelogenous leukemia. 3. Chronic pain syndrome. The patient seems to be very pain seeking, keeps requesting for pain medication every now and then. She at one point during the interview requested if you can get him in a port. I am not quite sure what will be the use for it, but I did tell her there is no any indication for port placement unless her perinatology physician/oncologist needs it for anything. We will be extremely careful with the narcotics that we will be giving her since there is evidence that she has been having a lot of constipation as well. Will discontinue her IV Dilaudid and place her on norco po DISPOSITION: I was told that the patient is waiting for her cell count to be less than 3000 as per her oncologist recommendation and then we can discharge her. I am hopeful that by tomorrow the count will be where it is acceptable for Hem/Onc, and we can successfully discharge her. Will DC her IV pain meds and place her on oral Benson on anticipation of her discharge cc: Feliciano Rico MD [facility]
[2016-12-09] MEDS ORDERED: NORCO-7.5 PO PRN (13:23)
[2016-12-09 13:25] VITALS: BP 122/77
--- NOTE | 2016-12-10 05:42 | DISCHARGE SUMMARY ---
ADMISSION DATE: 11/27/2016 DISCHARGE DATE: 12/09/2016 FOLLOW UPS: Presumed to be with Dr. Weinstein. ADMISSION DIAGNOSES: 1. Abdominal pain. 2. Chronic constipation. 3. Chronic myelogenous leukemia. 4. Nicotine dependence. At the time of leaving against medical advice, the diagnoses were: 1. Abdominal pain secondary to underlying massive splenomegaly and constipation. 2. Chronic myelogenous leukemia with very premature elements on peripheral smear. Questionable accelerated versus blast phase of chronic myelogenous leukemia. 3. Chronic pain syndrome. 4. Opioid dependence. 5. Nicotine dependence. DISCHARGE MEDICATIONS: None. PRESENTING COMPLAINT: Abdominal pain. HISTORY OF PRESENTING COMPLAINT: Ms. Maurice is a 26-year-old female with a history of CML, fibromyalgia and nicotine dependence and presumed opiate dependence, who has been very noncompliant with followup visits with supervisor lens generating, oncologist. The patient has actually been in and out of the hospital multiple times and has gone AMA multiple times for different reasons. The patient was, however, admitted this time because on evaluation, she was found to have a WBC of more than 563,000. Patient was admitted, started on medications per Hematology -Oncology consultation recommendations. WBC continued to decline. There was a plan to discharge the patient once the WBC was less than 300,000. Today, it was 348,000. Now, in anticipation for her discharge we discontinued her Dilaudid, which she was getting 1 mg q.3 hours, and according to the nurses, she was just like on the dot clockwise asking for her medications all the time. As I said, in anticipation for discharge, we would discontinue the Dilaudid and put her on Narco. That did not seem to go very well with her and she decided to sign AMA. Patient, therefore, left [facility], hopefully to follow up with her oncologist. cc: Feliciano Rico MD MTDD
== END 2016-12-09 14:25 | disposition left against medical advice (07) ==
LOC: ED 11:06 → 3N 18:01 → SUATTDRO 18:01 → 3N 18:51
PROVIDERS: ATTEND Internal Medicine

== ENCOUNTER 2017-01-13 14:48 | Inpatient (IN) ==
[2017-01-13] MEDS ORDERED: NS 1,000 ML IV ONE ×2 (15:15→19:20)
[2017-01-13] MEDS ORDERED: ZOFRAN IV ONE (15:15)
[2017-01-13] MEDS ORDERED: DILAUDID IV ONE ×2 (15:15→16:58)
[2017-01-13 15:43] LABS: URINE CULTURE NEEDED? NO; URINE MICRO REVIEW NEEDED? NO; URINE SOURCE CLEAN CATCH
[2017-01-13 15:50] LABS: BILIRUBIN URINE NEGATIVE (NEGATIVE); BLOOD URINE NEGATIVE (NEGATIVE); COLOR YELLOW; GLUCOSE URINE NEGATIVE (NEGATIVE); LEUKOCYTES URINE NEGATIVE (NEGATIVE); NITRITE URINE NEGATIVE (NEGATIVE); PH URINE 5.5; PROTEIN URINE TRACE mg/dL (NEGATIVE); SP GRAVITY URINE 1.015; TURBIDITY URINE HAZY (CLEAR); UR EPITHELIAL CELLS >10 /HPF (<10); URINE BACTERIA NEGATIVE /HPF; URINE RBC <10 /HPF (<10); URINE WBC <10 /HPF (<10); UROBILINOGEN URINE NORMAL (NORMAL)
[2017-01-13 15:50] LABS: AGAP 13; ALBUMIN 3.6 g/dL (3.5-5.0); ALKALINE PHOSPHATASE 87 U/L (32-104); AMYLASE 22 U/L (20-200); BUN 4 mg/dL (8-22); CALCIUM 9.3 mg/dL (8.8-10.2); CHLORIDE 98 mmol/L (98-107); COSMO 273; GOT 24 U/L (10-30); GPT 8 U/L (10-36); LIPASE 9 U/L (13-60); POTASSIUM 3.2 mmol/L (3.5-5.1); SODIUM 137 mmol/L (136-145); TCO2 26 mmol/L (25-35); TOTAL BILIRUBIN 0.43 mg/dL (0.20-1.00); TOTAL PROTEIN 8.7 g/dL (6.3-8.3)
[2017-01-13 16:11] LABS: HEMATOCRIT 37.1 % (37.0-47.0); HEMOGLOBIN 11.9 g/dL (12.0-16.0); MANUAL DIFF NEEDED? YES; MCH 32.1 PG (27-31); MCHC 32.1 g/dL (33-37); PLT 154 X1000 (130-400); RBC 3.71 XMIL (4.2-5.4)
--- NOTE | 2017-01-13 16:29 | Diag Imaging Result Doc PS360 ---
EXAM: US ABDOMEN-COMPLETE INDICATION: CML, enlarged spleen? COMPARISON: 10/04/2016 FINDINGS: There are several shadowing stones in the lumen of the gallbladder. There is no evidence of gallbladder wall thickening or pericholecystic fluid. The common bile duct is normal in diameter. Sonographic Woodson's sign was reported to be negative. The liver is enlarged measuring up to 20.9 cm (17.5 cm previously). No discrete hepatic mass is appreciated. Portal venous flow is hepatopedal. The visualized pancreas is unremarkable. The aorta and IVC are grossly unremarkable. The spleen is massively enlarged measuring 27.6 x 25.2 x 12.1 cm (28.6 x 28.4 x 10.3 cm previously). The right kidney is congenitally absent. The left kidney is unremarkable. IMPRESSION: 1.Massive splenomegaly similar to the previous study. 2.Hepatomegaly that measures larger than the previous study. 3.Cholelithiasis. Electronically signed by Shravan Perkins 01/13/2017 4:26 PM
--- NOTE | 2017-01-13 16:43 | PROVIDER DOCUMENTATION ---
This chart was entered by Yayo Bautista Scribe, acting as scribe for Moy Wilhelm MD. HPI-Abdominal Pain/GI Problem - General Chief Complaint: Abdominal Pain Stated Complaint: PAIN IN BACK/SHOULDER AND CENTER OF CHEST Time Seen by Provider: 01/13/17 15:05 Source: patient Allergies/Adverse Reactions: Patient Allergies Allergy/AdvReac Type Severity Reaction Status Date / Time Penicillins Allergy Severe rash and Verified 01/13/17 15:46 swelling adhesive Allergy RASH Verified 01/13/17 15:46 ketorolac tromethamine * Allergy HIVES Verified 01/13/17 15:46 [From Toradol] latex Allergy RASH Verified 01/13/17 15:46 meperidine HCl * Allergy ANAPHYLAXIS Verified 01/13/17 15:46 [From Demerol] metoclopramide HCl * Allergy ANAPHYLAXIS Verified 01/13/17 15:46 [From Reglan] morphine Allergy HIVES Verified 01/13/17 15:46 ceftriaxone sodium * AdvReac Intermediate VOMITING Verified 01/13/17 15:46 [From Rocephin] grape AdvReac ANAPHYLAXIS Verified 01/13/17 15:46 nalbuphine HCl * AdvReac NAUSEA/VOMI Verified 01/13/17 15:46 [From Nubain] TING Home Medications: Home Medication List Medication Instructions Recorded Confirmed Last Taken Type Gabapentin [Neurontin] 600 mg PO TID 06/15/16 01/13/17 01/13/17 History Clonazepam [Klonopin] 1 mg PO TID PRN PRN 10/04/16 01/13/17 01/13/17 History Clonidine [Catapres] 0.2 mg PO TID #90 tablet 10/07/16 01/13/17 01/13/17 Rx Hydroxyurea [Hydrea] 500 mg PO QAM 01/13/17 01/13/17 01/13/17 History Oxycodone HCl/Acetaminophen 1 each PO Q8H PRN 01/13/17 01/13/17 01/13/17 History [Endocet 10-325 mg Tablet] Tizanidine HCl [Tizanidine HCl] 4 mg PO BID 01/13/17 01/13/17 01/13/17 History - History of Present Illness-ABD Nature of Presenting Problems: Patient is a 26 y/o F that presents with one week of LUQ pain that has gotten worse. She denies n/v/d, fever/chills, or back pain. She reports shortness of breath associated with it. Patient has CML and is followed by . Has appointment with him next week. Abdominal Pain Onset Location: reports: LUQ Pain Radiation: reports: no radiation Quality of Pain: reports: dull Severity in ED: reports: moderate Onset/Duration: reports: gradual, 1 week ago Timing: reports: still present, getting worse Activities at Onset: reports: none Modifying Factors: improves with: nothing Associated Symptoms: reports: arm pain (hand), shortness of breath. denies: chest pain, fever/chills, genitourinary problems, nausea, vomiting Similar Symptoms Previously?: Yes Recently seen or treated by another doctor?: No Review of Systems - Adult - REVIEW OF SYSTEMS - ADULT Constitutional: denies: chills, fever Eyes: denies: decreased vision, blurred vision, double vision Ears, Nose, Mouth & Throat: denies: ear pain, sinus problem, throat pain, throat swelling Cardiovascular: reports: edema. denies: chest pain, palpitations, syncope Respiratory: reports: shortness of breath. denies: cough, wheezing Gastrointestinal: reports: abdominal pain. denies: diarrhea, nausea, vomiting Genitourinary: reports: no symptoms reported Musculoskeletal: reports: bone pain. denies: neck pain Integumentary: reports: no symptoms reported Neurological: reports: no symptoms reported Psychiatric: reports: no symptoms reported Endocrine: reports: no symptoms reported Hematologic/Lymphatic: reports: no symptoms reported Allergic/Immunologic: reports: no symptoms reported All Other Systems: Reviewed and Negative Past History - Adult - PAST MEDICAL HISTORY-ADULT Review of Records: reports: Old Records Reviewed, Nursing Assessment Review, Medications Reviewed Major Childhood Illnesses: reports: other (asthma) Cardiovascular: reports: HTN Obstetrical/Gynecological: reports: ovarian cysts Genitourinary: reports: kidney disease (congenital missing right kidney) Neurological: reports: Seizures/Epilepsy Psychiatric: reports: depression Endocrine/Immune: reports: Diabetes, Leukemia (CML) - PRIOR SURGERIES/PROCEDURES Surgical/Procedure History: reports: appendectomy, tonsillectomy, other (BONE MARROW BIOPSY) - IMMUNIZATION STATUS Childhood Immunizations: See Nurse Assessment Flu Vaccine: See Nurse Assessment - FAMILY HISTORY Family History: reviewed, not pertinent - SOCIAL HISTORY Smoking: cigarettes, less than 1 pack/day Living Situation: family Physical Exam-General - PHYSICAL EXAM-ADULT Initial Vital Signs Reviewed: Yes - CONSTITUTIONAL General Appearance: alert, mild distress - EYES Eyes: PERRL/EOMI, pink conjunctivae - HEAD, EARS, NOSE, MOUTH & THROAT HENMT: normocephalic/atraumatic, moist mucous membranes, normal ENT inspection - NECK Neck: full range of motion, normal inspection - RESPIRATORY Respiratory: lungs clear, normal breath sounds, no respiratory distress, no accessory muscle use - CARDIOVASCULAR Cardiovascular: no gallop, no murmur, tachycardia - GASTROINTESTINAL (ABDOMEN) Abdominal Exam: normal bowel sounds, tenderness (LUQ), hepatomegaly, spleenomegaly - MUSCULOSKELETAL Back Exam: no CVA tenderness, no vertebral tenderness Extremity: normal range of motion, normal capillary refill - SKIN Integumentary: normal color, warm/dry - NEUROLOGIC Neurologic: head of maintenance II-XII nml as tested, no motor/sensory deficits - PSYCHIATRIC Psych/Mental Status: normal mood/affect, normal thought content, normal thought process, oriented x 3 Progress - PLAN OF CARE/RESULTS Progress/Plan/Lab Results: Vital Signs - 8 hr 01/13/17 14:56 Temperature 98.4 F Pulse Rate 104 H Respiratory Rate 18 Blood Pressure 110/72 O2 Sat by Pulse Oximetry 99 Orders Category Date Time Status Saline Loc DIRECTED Care 01/13/17 15:14 Active NPO Diet 01/13/17 15:14 Active US ABDOMEN-COMPLETE [US] Stat Exams 01/13/17 15:13 Ordered AMYLASE [CHEM] Stat Lab 01/13/17 15:20 Received CBC WITH ELECTRONIC DIFF [HEME] Stat Lab 01/13/17 15:20 Results COMPREHENSIVE METABOLIC PANEL [CHEM] Stat Lab 01/13/17 15:20 Received LIPASE [CHEM] Stat Lab 01/13/17 15:20 Received UCG [ TEST-URINE] [PREG] Stat Lab 01/13/17 15:14 Uncollected URINALYSIS W/POSS RFLX CULT-1 [URINALYSIS] Stat Lab 01/13/17 15:14 Uncollected 0.9% Sodium Chloride Inj [Ns] 1,000 ml Med 01/13/17 15:15 Active IV 999 mls/hr Hydromorphone [Dilaudid] Med 01/13/17 15:15 Discontinued 1 mg IV NOW ONE Ondansetron [Zofran] Med 01/13/17 15:15 Discontinued 4 mg IV NOW ONE Result Diagrams: 01/13/17 15:20 01/13/17 15:20 - REASSESSMENT Reassessment #1 Time Reassessed: 16:41 Status: improving (Pt insists that she is taking all of her medication. Her doctor says that this is not so) - ULTRASOUND (By Radiology) 1 US Study: Abdomen Impression: Abnormal US Results: massive splenomegaly, hepatomegaly, cholelithiasis - CONSULTS/PCP/HOSPITALIST Notification #1 *Consult/PCP/Hospitalist*: Time Discussed: 16:34 Consult Disposition: other (will consult on patient, patient is non-compliant with her meds, but admit to hospitalist) Departure - Departure Date of Disposition Decision: 01/13/17 Time of Disposition Decision: 16:42 DIAGNOSIS: CML (chronic myelocytic leukemia), Sudden onset of severe abdominal pain, Splenomegaly Disposition: ADMITTED INPATIENT 09 Certified Medical Emergency: Emergent Condition: Fair Referrals and Follow-Ups: None,PCP [Primary Care Provider] - - Critical Care Note This patient required my direct & personal management of CC.: No This chart was documented by the indicated scribe, (Yayo Bautista, Scribe) and accurately reflects the services I performed and decisions made by me, Moy Wilhelm MD, as attested by the provider's signature.
[2017-01-13 16:44] LABS: BANDS 30 % (0-1); LYMPHS 2 % (21-51); MONO 1 % (1-9); NRBC 1 % (0-0)
[2017-01-13 16:46] LABS: LARGE PLATELETS 1+
[2017-01-13] MEDS: DILAUDID IV PRN (21:13)
[2017-01-14] MEDS: DILAUDID IV PRN ×6 (01:45→22:16)
[2017-01-14] MEDS ORDERED: KLOR-CON PO ONE (06:10)
[2017-01-14] MEDS ORDERED: DILAUDID IV ONE (06:14)
--- NOTE | 2017-01-14 06:35 | HISTORY AND PHYSICAL ---
PRIMARY CARE PHYSICIAN: None. CHIEF COMPLAINT: Abdominal pain. HISTORY OF PRESENTING ILLNESS: A 26-year-old female with a history of CML and hypertension who presented to the emergency department with a several day history of having abdominal pain. She states that the pain was worsening. She rates the pain about a 6/10 and states that she could not tolerate it. She apparently had been evaluated for similar complaints previously and her treatment was symptomatic. However, due to her presenting symptoms, it was thought that we would place her in for observation for further evaluation and management. At the time of my examination, she had denied any headache, fever, chills, chest pain, shortness of breath, hemoptysis, or any weight changes but complained of abdominal pain. PAST MEDICAL HISTORY: CML, hypertension. PAST SURGICAL HISTORY: Appendectomy, tonsillectomy, bone marrow biopsy. ALLERGIES: To Toradol, Demerol, morphine, Nubain, penicillin, and Rocephin. CURRENT MEDICATIONS: As listed in the medication reconciliation sheet. SOCIAL HISTORY: A 10 pack year history of smoking. She denies any history of alcohol or illicit drug use. FAMILY HISTORY: Positive for coronary artery disease in mother. REVIEW OF SYSTEMS: Twelve point review of systems as listed in the HPI. Other systems negative. PHYSICAL EXAMINATION: GENERAL: Cooperative, friendly female. She is resting comfortably now. VITAL SIGNS: Temperature 98.7 degrees, pulse 80, respirations 18, blood pressure 114/70. HEENT: Atraumatic, normocephalic. Extraocular movements intact. PERRLA. NECK: No masses. CHEST: Clear to auscultation. CARDIOVASCULAR: Regular rate and rhythm. ABDOMEN: Soft. It seems like there is an enlarged spleen. EXTREMITIES: No edema. NEUROLOGIC: She is awake, alert, oriented x3. : No bladder distention. SKIN: Warm. LABORATORIES AND STUDIES: WBCs 529.23, hemoglobin 11.9, hematocrit 37.1, platelets 154,000. Sodium 137, potassium 3.2, chloride 98, CO2 is 26, BUN is 4, creatinine 0.9, glucose is 136. ASSESSMENT: This is a 26-year-old female with a history of chronic myeloid leukemia and hypertension who presented to the emergency department with a several day history of worsening abdominal pain. We will place the patient for observation for further evaluation and management. 1. Abdominal pain. 2. Splenomegaly. 3. Chronic myeloid leukemia. 4. Hypertension. PLAN: 1. We will admit patient to the medical floor with telemetry. 2. Continue supportive treatment with IV fluids, antiemetics, and pain control. 3. We will consult her oncologist. 4. We will monitor blood pressure and resume antihypertensive agent. 5. Put the patient on DVT prophylaxis with SCD. 6. We will continue to follow and reassess. cc: Kanu Bingham MD
[2017-01-14] MEDS: NS 1,000 ML IV SCH ×3 (06:49→21:31)
[2017-01-14] MEDS: ZOFRAN IV PRN ×3 (08:11→21:30)
[2017-01-14] MEDS: ZANAFLEX PO SCH ×3 (08:28→21:28)
[2017-01-14] MEDS: CATAPRES PO SCH ×3 (08:28→18:05)
[2017-01-14] MEDS: NEURONTIN PO SCH ×3 (08:28→18:05)
[2017-01-14] MEDS ORDERED: HYDREA PO SCH (09:00)
[2017-01-14 11:00] LABS: HEMATOCRIT 33.1 % (37.0-47.0); HEMOGLOBIN 10.5 g/dL (12.0-16.0); MANUAL DIFF NEEDED? YES; MCH 32.1 PG (27-31); MCHC 31.7 g/dL (33-37); MCV 101.2 FL (81-99); MPV 12.5 FL (7.4-10.4); PLT 135 X1000 (130-400); RBC 3.27 XMIL (4.2-5.4)
[2017-01-14 11:15] LABS: BANDS 20 % (0-1); LYMPHS 2 % (21-51); MONO 1 % (1-9)
[2017-01-14 11:16] LABS: LARGE PLATELETS 1+; NRBC 3 % (0-0)
--- NOTE | 2017-01-14 12:01 | PROGRESS NOTE ---
DATE: 01/14/2017 SUBJECTIVE: The patient is still complaining of abdominal pain that has being going on. Even when she is discharged, she is always hurting. She denies any fever or chills. She reports being complaint with her medication. Apparently, she is supposed to just take hydroxyurea for control of the CML. OBJECTIVE: Vital Signs: Temperature 98.8 degrees, heart rate 91, blood pressure 114/70, O2 saturation 96% on 2 L nasal cannula. General Examination: This is a 26-year-old, female lying in bed, in no acute distress. HEENT: Head is normocephalic and atraumatic. Anicteric sclerae and pale conjunctivae. Mucous membranes moist. Neck: Supple. No JVD noted. No carotid bruits. No lymphadenopathy. No thyromegaly. Cardiovascular Examination: S1 and S2 heard. No murmurs, gallops, or rubs. Regular rate and rhythm. Respiratory Examination: Clear bilaterally to auscultation. No work of breathing or using accessory muscles. Abdomen: Soft. Definitely markedly painful to palpation in the left upper quadrant with tender and very enlarged spleen. Bowel sounds present. No organomegaly. Extremities: No clubbing, cyanosis, or edema. Peripheral pulses present in both legs. Neurological Examination: The patient is alert and oriented x3. Able to move 4 extremities. Laboratory Data: White cell count of 522.55. ASSESSMENT AND PLAN: 1. Chronic myeloid leukemia. 2. Hypertension. 3. Severe abdominal pain secondary to splenomegaly. PLAN: This patient has been here in the hospital for the same clinical picture, abdominal pain and very high white cell count. Sometimes has been documented that this patient is not compliant with her medications, although she reports that she has. In any case, we will await evaluation by Dr. Weinstein, her primary oncologist, and we will see there is anything else that we can do for this patient because she has been admitted at least 5-6 times in the last year. Management of pain is also getting really difficult because she keeps asking for more pain medication which I think this patient is really hurting. We have increased the doses from 0.5-1 mg of Dilaudid every 4 hours as needed for pain. We will continue with the same management. For hypertension, that condition is stable. cc: Sree Brown MD
[2017-01-14] MEDS: HYDREA PO SCH ×2 (21:18→21:27)
[2017-01-14] MEDS ORDERED: PHENERGAN IV ONE (22:04)
[2017-01-14] MEDS ORDERED: SODIUM CHLORIDE 0.9% INJ ONE (22:04)
[2017-01-15] MEDS: PROTONIX IV SCH ×3 (01:57→12:39)
[2017-01-15] MEDS: SODIUM CHLORIDE 0.9% INJ SCH ×2 (01:58→12:12)
[2017-01-15] MEDS: NS 1,000 ML IV SCH ×3 (02:03→16:47)
[2017-01-15] MEDS: DILAUDID IV PRN ×6 (02:17→22:14)
[2017-01-15] MEDS: ZOFRAN IV PRN ×2 (02:17→08:43)
[2017-01-15 06:54] LABS: HEMATOCRIT 31.2 % (37.0-47.0); MANUAL DIFF NEEDED? YES; MCH 32.7 PG (27-31); MCHC 32.1 g/dL (33-37); MPV 12.6 FL (7.4-10.4); PLT 148 X1000 (130-400); RBC 3.06 XMIL (4.2-5.4)
[2017-01-15 07:06] LABS: AGAP 14; BUN 3 mg/dL (8-22); CALCIUM 8.4 mg/dL (8.8-10.2); CHLORIDE 105 mmol/L (98-107); COSMO 283; POTASSIUM 2.8 mmol/L (3.5-5.1); SODIUM 144 mmol/L (136-145); TCO2 25 mmol/L (25-35)
[2017-01-15 07:17] LABS: BANDS 4 % (0-1); EOS 6 % (1-10); LYMPHS 8 % (21-51); MONO 8 % (1-9); NRBC 3 % (0-0)
[2017-01-15] MEDS: NEURONTIN PO SCH ×5 (08:44→16:35)
[2017-01-15] MEDS: CATAPRES PO SCH ×4 (08:44→16:35)
[2017-01-15] MEDS: HYDREA PO SCH ×3 (08:44→22:13)
[2017-01-15] MEDS: ZANAFLEX PO SCH ×3 (08:44→22:13)
[2017-01-15] MEDS ORDERED: HYDREA PO SCH (09:00)
--- NOTE | 2017-01-15 09:34 | CONSULTATION ---
DATE OF CONSULTATION: 01/14/2017 ADMITTING PHYSICIAN: Dr. Kanu Bingham. REQUESTING PHYSICIAN: Dr. Kanu Bingham. We appreciate this consult. CHIEF COMPLAINT: CML. HISTORY OF PRESENT ILLNESS: Ms. Debora Maurice is a 26-year-old female, very well known to Dr. Weinstein with a history of CML, on Hydrea, and in the past on Sprycel, with significant noncompliance. The patient has been admitted to [facility] multiple times secondary to massive splenomegaly, severe abdominal pain, and significant leukocytosis. The patient presents to [facility] with a several-day history of significant abdominal pain that has been worsening. The patient reported on admission that her pain was a 6/10. The patient was admitted for observation. PAST MEDICAL HISTORY: 1. CML. 2. Hypertension. PAST SURGICAL HISTORY: 1. Appendectomy. 2. Tonsillectomy. 3. Bone marrow biopsy. FAMILY HISTORY: Negative for any hematologic or oncologic problems. SOCIAL HISTORY: The patient has a [id number] history of smoking. She does not use alcohol or illicit drugs. MEDICATIONS ON ADMISSION: Hydrea. ALLERGIES: Toradol, Demerol, morphine, Nubain, penicillin, and Rocephin. REVIEW OF SYSTEMS: A 14-point review of systems was obtained and is negative, except for as mentioned in the HPI. PHYSICAL EXAMINATION: General: Ms. Maurice is a 26-year-old female, lying supine in bed in no immediate distress. Vital Signs: Temperature 98.8 degrees, blood pressure 143/91, heart rate 91, respirations 18, O2 saturation is 96% on 2 L nasal cannula O2. HEENT: Normocephalic, atraumatic. Mucous membranes are pink and moist. Sclerae anicteric. Extraocular movements intact. Neck: Supple. Lungs: Clear to auscultation bilaterally. Chest expansion is equal bilaterally. CV: S1, S2 is heard without murmur, rub, or gallop. Abdomen: Tense, distended, tender diffusely. Bowel sounds are decreased throughout. Extremities: Without clubbing, cyanosis, or edema. Dermatologic: No rashes, bruises, or lesions. Neurologic: The patient is awake, alert, and oriented x3. She has no focal deficit at this time. LABORATORY DATA: Hemoglobin 11.9, hematocrit 37.1, white blood cell count 529.23, platelets 154,000. Sodium 137, potassium 3.2, chloride 98, CO2 is 26, BUN 4, creatinine 0.9, glucose is 136, calcium is 9.3. IMAGING STUDIES: Abdominal ultrasound reveals massive splenomegaly, which is unchanged, and increasing hepatomegaly with cholelithiasis. ASSESSMENT AND PLAN: 1. Chronic myeloid leukemia with a history of noncompliance on medications. We will place the patient on Hydrea 1 gram twice daily. At this time, we will continue to monitor the patient's white blood cell count. 2. Abdominal pain. We will continue pain medications as ordered. 3. Splenomegaly, massive and unchanged. Would continue to monitor. Additionally, we will continue to encourage precautions to include no activity that would increase risk of injury to the abdomen. 4. Hypertension, stable at this time with a blood pressure of 143/91. Would continue to monitor and continue medications as ordered. We will follow along with you and make further recommendations pending outcomes. The above reflects the history, exam, assessment, and plan of Dr. Weinstein. Dictated by LONG Sanchez for Jimmie Weinstein MD cc: LONG Sanchez MD
[2017-01-15] MEDS ORDERED: POTASSIUM CHLORIDE 60 MEQ in NS 500 ML IV SCH (12:30)
--- NOTE | 2017-01-15 13:51 | PROGRESS NOTE ---
DATE: 01/15/2017 SUBJECTIVE: Patient reports that yesterday she had 3 episodes of bloody vomiting. The last one was just after midnight. No more episodes of vomiting. Today he she is not nauseated and she is trying some clear liquid diet today. OBJECTIVE: Vital Signs: Temperature 97.8 degrees, heart rate 111, respiratory rate 18, blood pressure 134/78, O2 saturation 92% on room air. General Examination: This is a 26-year-old, female, lying in bed in no acute distress. HEENT: Head is normocephalic, atraumatic. Anicteric sclerae and pale conjunctivae. Mucous membranes moist. Neck: Supple. No JVD noted. No carotid bruits. No lymphadenopathy. No thyromegaly. Cardiovascular exam: S1, S2 heard. No murmurs, gallops, or rubs. Regular rate and rhythm. Respiratory exam: Clear bilaterally to auscultation. No work of breathing or using accessory muscles. Abdomen: Soft. Moderately tender to palpation in the left upper quadrant. No signs of peritoneal irritation. Splenomegaly clearly noted. Extremities: No clubbing, cyanosis, or edema. Peripheral pulses present in both legs. Neurological exam: Patient alert and oriented x3. Moves 4 extremities. LABORATORY DATA: Remarkable for a white cell count 512.66, platelets of 148. BMP remarkable for potassium 2.8. ASSESSMENT AND PLAN: 1. Chronic myeloid leukemia. Thank you, Dr. Weinstein, from hematology-oncology for allowing me to follow this patient. They have started this patient on hydroxyurea 2 times per day. We will continue with same management. 2. Gastrointestinal bleeding. Patient had three episodes of vomiting blood. Gastroenterology doctor, Dr. Gonzalez, has been consulted and they are planning to do an endoscopy tomorrow. We will see what that exam shows. 3. Hypertension. Blood pressure is definitely much better controlled. We will continue with the same management. 4. Severe abdominal pain secondary to splenomegaly. We have made some changes to her pain medication now, although she is still hurting. Pain is much better controlled. We will continue with same management. cc: Sree Brown MD
[2017-01-15] MEDS ORDERED: KLOR-CON PO ONE (15:00)
--- NOTE | 2017-01-15 15:17 | CONSULTATION ---
DATE OF CONSULTATION: 01/15/2017 ATTENDING PHYSICIAN: Dr. Chávez. PRIMARY ONCOLOGIST: Dr. Weinstein. REASON FOR CONSULTATION: Abdominal pain, nausea, vomiting, vomiting blood. HISTORY OF PRESENT ILLNESS: Ms. Irby is a 26-year-old female, who has a known history of CML for the last 5 years. Taking hydroxyurea under the care of Dr. Weinstein. Has massive splenomegaly, noncompliance and was admitted to the hospital on 01/13/2017 with worsening abdominal pain in the left upper quadrant region along with nausea, vomiting, and 1 episode of vomiting blood. She also has a history of intermittent constipation and uses the bathroom once every other day and the stool is hard. She denies noting any blood in the stools. She has been drinking about 12 Mountain Dews a day. She also smokes for 10 years. She denies any prior history of NSAIDs or any history of peptic ulcer disease in the past. PAST MEDICAL HISTORY: 1. CML for 5 years. 2. Hypertension. 3. Constipation. PAST SURGICAL HISTORY: Appendectomy, tonsillectomy, bone marrow biopsy. FAMILY HISTORY: Denies any history of peptic ulcer disease or colitis in the family or colon cancer in the family. Her adoptive grandmother a few months ago. She lives with her adopted grandfather. Her biological parents have . SOCIAL HISTORY: She has a 10 pack year history of smoking. Does not use any alcohol or illicit drugs. She lives at home with her adopted father. MEDICATIONS AT HOME: Is hydroxyurea. ALLERGIES: Toradol, Demerol, morphine, Nubain, penicillin, Rocephin. REVIEW OF SYSTEMS: Denies any current fevers, rigors, chills, chest pain, shortness of breath, dyspnea. Denies any genitourinary complaints. Denies history of blood in the stools. Does have constipation. Does have nausea, vomiting, worsening abdominal pain and 1 episode of vomiting blood. MEDICATIONS IN THE HOSPITAL: Include Klonopin, clonidine, gabapentin, Dilaudid , hydroxyurea, sodium chloride 100 mL/hour. Protonix 40 mg IV q.12 hours. Tizanidine 4 mg p.o. b.i.d. She is currently NPO. PHYSICAL EXAMINATION: Temperature of 98.9 degrees, pulse rate of 107, respiratory 18, blood pressure of 134/78, saturating 90% on room air. Body weight of 148 pounds 3.2 pounds. BMI of 26.3 kg.General: Moderately built, moderately nourished lying in bed, in no acute. HEENT: Mild pallor. No icterus. Pupils equal, reactive to light and accommodation. Neck: Supple. Chest: Decreased. Cardiac: Tachycardic. Abdomen: Discomfort in the periumbilical area of the left upper quadrant. Splenomegaly was felt. Bowel sounds present. No guarding. No rebound. Extremities: No cyanosis, clubbing, edema. Neurologic: She is alert, awake, oriented. LAB: Her hemoglobin and hematocrit are 10 and 31.2, white count of 512.66, platelet count of 148,000. MCV of 102. Sodium 144, potassium 3.8, chloride 105, bicarb 25, anion gap of 14, BUN of 3, creatinine 0.8, glucose of 93, calcium is 8.4. AST 24, ALT, alkaline phosphatase 87, total protein is 8.2, albumin 3.6, amylase of 22, lipase of 9. Abdominal ultrasound done on 01/13/2017 showed massive splenomegaly measuring 27.6 and 25.2, and 12.1 cm. The right kidney is congenitally absent. The left kidney is unremarkable. Cholelithiasis. Hepatomegaly visualized the previous study. The CBD is normal in diameter. Negative Woodson's sign. Liver measuring up to 20.9 cm and several shadowy stones noted in the lumen of the gallbladder. ASSESSMENT AND PLAN: 1. Abdominal pain in the left lower quadrant. On physical exam, likely secondary to massive splenomegaly and thyromegaly from CML. Dr. Weinstein has been consulted. 2. Nausea, vomiting. Question of vomiting blood and anemia. 3. Gallstones. RECOMMENDATIONS: We give the patient Protonix twice daily. We will start on full liquid diet today. We will start her on Dulcolax suppository once daily. We will schedule for EGD tomorrow under anesthesia with Dr. Whitfield. If that is negative the patient needs cholecystectomy per the surgical team. In the interim, Dr. Weinstein will assess the patient and we will await his recommendation regarding any modification of treatment for CML. The risks, benefits, indications and alternatives to EGD was discussed with the patient. cc: Demetris GonzalezMD Sree kelly MD Sammy Becdach, MD [facility]
[2017-01-15] MEDS ORDERED: NS 250 ML ONE (15:21)
[2017-01-15 15:22] LABS: INR 1.48; PROTIME 15.9 Seconds (9.2-11.7)
[2017-01-15] MEDS: KLONOPIN PO PRN ×2 (16:38→22:19)
[2017-01-15] MEDS: DULCOLAX PR SCH (22:17)
[2017-01-16] MEDS: SODIUM CHLORIDE 0.9% INJ SCH ×2 (02:09→13:25)
[2017-01-16] MEDS: DILAUDID IV PRN ×6 (02:09→21:39)
[2017-01-16] MEDS: PROTONIX IV SCH ×2 (02:09→13:25)
[2017-01-16] MEDS: NS 1,000 ML IV SCH ×3 (02:13→23:26)
[2017-01-16 06:43] LABS: HEMATOCRIT 29.1 % (37.0-47.0); HEMOGLOBIN 9.2 g/dL (12.0-16.0); MANUAL DIFF NEEDED? YES; MCH 32.4 PG (27-31); MCHC 31.6 g/dL (33-37); MCV 102.5 FL (81-99); MPV 12.1 FL (7.4-10.4); PLT 119 X1000 (130-400); RBC 2.84 XMIL (4.2-5.4)
[2017-01-16 06:57] LABS: BANDS 6 % (0-1); LYMPHS 10 % (21-51); MONO 10 % (1-9)
[2017-01-16] MEDS: ZOFRAN IV PRN ×2 (07:57→22:25)
[2017-01-16] MEDS: NEURONTIN PO SCH ×3 (11:42→16:11)
[2017-01-16] MEDS: ZANAFLEX PO SCH ×2 (11:42→20:41)
[2017-01-16] MEDS: HYDREA PO SCH ×2 (11:43→20:41)
[2017-01-16] MEDS: CATAPRES PO SCH ×3 (11:43→16:11)
[2017-01-16 12:30] LABS: AGAP 8; BUN 4 mg/dL (8-22); CALCIUM 7.3 mg/dL (8.8-10.2); CHLORIDE 110 mmol/L (98-107); COSMO 281; POTASSIUM 3.1 mmol/L (3.5-5.1); SODIUM 143 mmol/L (136-145); TCO2 25 mmol/L (25-35)
[2017-01-16] MEDS ORDERED: DIPRIVAN 1% ONE (13:21)
--- NOTE | 2017-01-16 14:59 | PROGRESS NOTE ---
DATE: 01/16/2017 SUBJECTIVE: Patient reports feeling fine. He is still complaining of mild pain in the left upper quadrant because of the splenomegaly, and no more episodes of blood or vomiting. OBJECTIVE: Vital Signs: Temperature 99.1 degrees, heart rate 81, respiratory rate 20, blood pressure 141/93, O2 saturation 91% on 2 L nasal cannula. General Examination: This is a 26-year- old, female lying in bed, in no acute distress. HEENT: Normocephalic and atraumatic. Anicteric sclerae and pale conjunctivae. Mucous membranes moist. Neck: Supple. No JVD noted. No carotid bruits. No lymphadenopathy. No thyromegaly. Cardiovascular: No murmurs gallops or rubs. Regular rate and rhythm. Respiratory: Clear bilaterally to auscultation. No work of breathing or using accessory muscles. Abdomen: Soft, mildly tender to palpation in the left upper quadrant with splenomegaly noted. No signs of peritoneal irritation. Extremities: No clubbing, cyanosis, or edema. Peripheral pulses present. Neurologic: Patient alert, oriented x3, moves 4 extremities. ASSESSMENT AND PLAN: 1. Chronic mild leukemia. The patient is being followed by Dr. Weinstein from Hematology/Oncology. Patient has been started on hydroxyurea 2 times per day and definitely the white cell count is much better today. We will continue with the same management. 2. Gastrointestinal bleeding. Patient's hemoglobin is stable but she went for a procedure today, we will see what that exam shows. 3. Hypertension. Blood pressure is well controlled. 4. Severe abdominal pain secondary to splenomegaly. Patient is feeling better. cc: Sree Brown MD
--- NOTE | 2017-01-16 15:21 | Extremity Venous Study ---
PROCEDURE NAME: Venous U/S Right Arm - 01/15/2017 RIGHT UPPER EXTREMITY VENOUS DUPLEX STUDY: REFERRING PHYSICIAN: Dr. Cely Parisi. READING PHYSICIAN: Dr. Tyron Anderson. PUBLIC FINANCE SPECIALIST: Stern. INDICATION: Right hand pain and swelling. FINDINGS: The deep and superficial veins of the right upper extremity were imaged throughout their course. They are compressible, patent, and without thrombus. INTERPRETATION: No evidence of deep or superficial venous thrombosis of the right upper extremity. cc: MD Cely Almanza MD
--- NOTE | 2017-01-16 16:09 | OPERATIVE NOTE ---
PROCEDURE DATE: 01/16/2017 PROCEDURE: Esophagogastroduodenoscopy. PREOPERATIVE DIAGNOSIS: Vomiting. POSTOPERATIVE DIAGNOSES: 1. Mild esophagitis. 2. Otherwise normal. DESCRIPTION OF PROCEDURE: After informed consent and adequate intravenous sedation by Anesthesia, the scope introduced into the esophagus. Mild esophagitis present. No Chantelle-Saldivar tear. Cardia, fundus, body, antrum, pylorus, duodenal bulb and second portion normal. No evidence of ulcer disease or gastritis or any fresh or old blood seen. The scope was withdrawn. The patient tolerated the procedure and was transported back to recovery in satisfactory condition. cc: Jojo Whitfield MD
[2017-01-16] MEDS ORDERED: KLOR-CON PO ONE (17:21)
[2017-01-16] MEDS: KLONOPIN PO PRN ×2 (20:41→23:58)
[2017-01-16] MEDS: DULCOLAX PR SCH (20:42)
[2017-01-17] MEDS: PROTONIX IV SCH ×2 (01:24→13:24)
[2017-01-17] MEDS: SODIUM CHLORIDE 0.9% INJ SCH ×2 (01:24→13:24)
[2017-01-17] MEDS: DILAUDID IV PRN ×7 (01:24→22:17)
[2017-01-17] MEDS: ZOFRAN IV PRN (05:33)
[2017-01-17 06:13] LABS: HEMATOCRIT 30.2 % (37.0-47.0); HEMOGLOBIN 9.5 g/dL (12.0-16.0); MANUAL DIFF NEEDED? YES; MCH 31.8 PG (27-31); MCHC 31.5 g/dL (33-37); MPV 11.6 FL (7.4-10.4); PLT 114 X1000 (130-400); RBC 2.99 XMIL (4.2-5.4)
[2017-01-17 06:21] LABS: AGAP 12; BUN 5 mg/dL (8-22); CALCIUM 8.3 mg/dL (8.8-10.2); CHLORIDE 103 mmol/L (98-107); COSMO 277; POTASSIUM 3.8 mmol/L (3.5-5.1); SODIUM 141 mmol/L (136-145); TCO2 26 mmol/L (25-35)
[2017-01-17 06:25] LABS: BANDS 8 % (0-1); LYMPHS 7 % (21-51)
[2017-01-17] MEDS: HYDREA PO SCH ×2 (08:38→21:35)
[2017-01-17] MEDS: NEURONTIN PO SCH ×3 (08:38→16:33)
[2017-01-17] MEDS: CATAPRES PO SCH ×3 (08:38→21:35)
[2017-01-17] MEDS: NS 1,000 ML IV SCH ×3 (08:38→22:17)
[2017-01-17] MEDS: ZANAFLEX PO SCH ×2 (08:38→21:35)
--- NOTE | 2017-01-17 10:34 | PROGRESS NOTE ---
DATE: 01/17/2017 SUBJECTIVE: Ms. Maurice is lying in her hospital bed. She reports that her abdomen continues to be painful. OBJECTIVE/VITAL SIGNS: Temperature 98.1 degrees, heart rate 90, respirations 18 , blood pressure 138/90, O2 saturation 95% on room air. LABORATORY: White blood cells, 417.22, hemoglobin 9.5, hematocrit 38.2, platelet count 114. Sodium 141, potassium 3.8, chloride 103, CO2 26, BUN 5, creatinine 0.8, glucose 76. PHYSICAL EXAMINATION: CV: Regular rate and rhythm. S1, S2 heard. No murmurs , gallops, rubs appreciated. Respiratory: Chest clear to auscultation bilaterally. Normal respiratory effort. Gastrointestinal: Abdomen is protuberant. She does have some left upper quadrant tenderness to palpation. Positive bowel sounds. Extremities: No bilateral lower extremity edema is noted. ASSESSMENT AND PLAN: 1. Chronic myeloid leukemia. Patient has been noncompliant with her medicines previously. White count is slowly improving. Continue Hydrea 1000 mg twice daily. 2. Splenomegaly. This is because of the patient's abdominal pain. It seemed that the primary team has been adjusting her pain medications. The pain is much better controlled than upon admission. We will continue with the current pain medications at this time. 3. Hematemesis. Patient is status post esophagogastroduodenoscopy yesterday. Per report, there is no evidence of any blood or any bleeding. There is also no evidence of any Chantelle-Saldivar tear. No further episodes of hematemesis. Continue per gastroenterology. 4. Anemia. This is overall stable. 5. Thrombocytopenia. Secondary to #1. Overall stable. Dictated by LORENE Guerra for Cely Parisi MD cc: Cely Parisi MD I have seen and examined the patient and agree with the above A/P. Cely GALLEGOS
[2017-01-17] MEDS: PHENERGAN IV PRN ×3 (13:30→22:17)
[2017-01-17] MEDS: SODIUM CHLORIDE 0.9% INJ PRN ×2 (13:30→18:21)
--- NOTE | 2017-01-17 15:07 | PROGRESS NOTE ---
DATE: 01/17/2017 SUBJECTIVE: Patient reports no more episodes of vomiting blood. She is still complaining of abdominal pain, and she requests to have her Dilaudid increased from every 4 hours to every 3 hours. No fever or chills reported. OBJECTIVE: Vital Signs: Temperature 98.2 degrees, heart rate 98, respiratory rate 18, blood pressure 136/83, O2 saturation 95% on room air. General: This is a 26-year-old, female lying in bed, in no acute distress. HEENT: Head is normocephalic and atraumatic. Anicteric sclerae and pale conjunctivae. Mucous membranes moist. Neck supple. No JVD noted. No carotid bruits. No lymphadenopathy. No thyromegaly. Cardiovascular: S1 and S2 heard. No murmurs, gallops, or rubs. Regular rate and rhythm. Respiratory exam clear bilaterally to auscultation. No work of breathing or using accessory muscles. Abdomen soft, nontender to palpation. Bowel sounds present. No organomegaly. No tenderness to palpation in the left upper quadrant. There is clear splenomegaly noted. No signs of peritoneal irritation. Extremities: No clubbing, cyanosis, or edema. Peripheral pulses present in both legs. Neurologic: Patient is alert and oriented x3. Moves 4 extremities. ASSESSMENT AND PLAN: 1. Chronic myeloid leukemia. Patient is on hydroxyurea 1 g q. b.i.d. The white cell count is basically unchanged when compared with yesterday's 400,000; but, at admission, was 500,000. We will continue with the same management. Dr. Weinstein is following this patient from Hematology/Oncology. 2. Gastrointestinal bleeding. The sales agent food vending service was consulted for that episode of apparently gastrointestinal bleeding but they did not find anything at endoscopy. Hemoglobin is stable so far. We will continue monitoring hemoglobin daily. 3. Hypertension. Blood pressure is well controlled. 4. Severe abdominal pain secondary to splenomegaly. Patient requests to have Dilaudid increase the frequency from 4 hours to 3 hours. We will do that, but we remarked the importance to use oral medications. Patient reports that she is feeling If tomorrow she is feeling better, we will try oral pain medications. cc: Sree Brown MD
[2017-01-17] MEDS: DULCOLAX PR SCH (21:27)
[2017-01-17] MEDS: KLONOPIN PO PRN (21:35)
[2017-01-18] MEDS: PHENERGAN IV PRN ×5 (01:55→21:34)
[2017-01-18] MEDS: DILAUDID IV PRN ×7 (01:55→21:33)
[2017-01-18] MEDS: PROTONIX IV SCH ×2 (05:17→13:32)
[2017-01-18] MEDS: NS 1,000 ML IV SCH ×4 (05:18→21:33)
[2017-01-18] MEDS: SODIUM CHLORIDE 0.9% INJ PRN ×3 (06:08→16:24)
[2017-01-18 07:03] LABS: AGAP 12; BUN 7 mg/dL (8-22); CALCIUM 7.2 mg/dL (8.8-10.2); CHLORIDE 107 mmol/L (98-107); COSMO 282; POTASSIUM 3.3 mmol/L (3.5-5.1); SODIUM 143 mmol/L (136-145); TCO2 24 mmol/L (25-35)
[2017-01-18 07:09] LABS: EOS# 4.37 X1000 (0.0-0.7); EOS% 1.3 % (0.0-10.0); HEMATOCRIT 27.9 % (37.0-47.0); LYMPH# 9.11 X1000 (1.2-3.4); LYMPH% 2.7 % (20.5-51.1); MANUAL DIFF NEEDED? YES; MCH 32.3 PG (27-31); MCHC 32.3 g/dL (33-37); MONO# 19.23 X1000 (0.11-0.59); MONO% 5.7 % (1.7-9.3); MPV 11.7 FL (7.4-10.4); PLT 93 X1000 (130-400); RBC 2.79 XMIL (4.2-5.4)
--- NOTE | 2017-01-18 07:47 | PROGRESS NOTE ---
DATE: 01/18/2017 SUBJECTIVE: Patient is resting comfortably at the time of visit. Nurses report no issues overnight. PHYSICAL EXAMINATION: Vital Signs: Temperature 98.4, pulse 94, respiratory rate 18, blood pressure 136/87, O2 saturation 96% on room air. General: This is a chronically ill-appearing, woman in no acute distress. She is sleeping comfortably during her visit this morning. HEENT: Eyes, sclerae are anicteric. Cardiovascular: Regular rate and rhythm. Normal S1 and S2. No murmurs, rubs, or gallops. Pulmonary: With clear breath sounds bilaterally. No wheezes, rales, or rhonchi. GI: Abdomen is soft with notable splenomegaly. Nontender with normoactive bowel sounds. Extremities: No clubbing, cyanosis, or edema. She has 2+ pulses x4. Neurologic: The patient is alert and arousable once woken from sleep. The rest of the examination is normal per template. LABORATORY DATA: White count 339,000, hemoglobin 9, platelet count 93,000. ASSESSMENT AND PLAN: 1. Chronic myeloid leukemia: She continues on Hydrea 1 g twice a day for cytoreduction. Her white count is slowly coming down. Support her anemia and thrombocytopenia, we will transfuse when necessary. She does not require any transfusions today. 2. Nausea: She continues with antiemetics as needed with good control of her nausea at this time. Continue to monitor. 3. Pain from splenomegaly: She continues on Dilaudid every 3-4 hours as needed. Her pain appears well controlled at this time. Continue to monitor. cc: Cely Parisi MD I have seen and examined the patient and agree with the above A/P. Cely Parisi MD [facility]
[2017-01-18 07:58] LABS: BANDS 18 % (0-1); MONO 2 % (1-9)
[2017-01-18 07:59] LABS: HYPOCHROM 1+; LYMPHS 1 % (21-51)
[2017-01-18] MEDS: ZANAFLEX PO SCH ×2 (09:24→21:39)
[2017-01-18] MEDS: NEURONTIN PO SCH ×3 (09:24→16:40)
[2017-01-18] MEDS: HYDREA PO SCH ×2 (09:24→21:38)
[2017-01-18] MEDS: CATAPRES PO SCH ×3 (09:24→21:39)
[2017-01-18] MEDS ORDERED: KLOR-CON PO ONE (12:02)
[2017-01-18] MEDS: KLONOPIN PO PRN ×2 (16:43→21:46)
--- NOTE | 2017-01-18 17:18 | PROGRESS NOTE ---
DATE: 01/18/2017 SUBJECTIVE: Patient reports that pain is under control. No signs of GI bleeding. OBJECTIVE: Vital Signs: Temperature 98.2 degrees, heart rate 94, respiratory rate 18, blood pressure 143/94, O2 saturation 95% on room air. General Examination: This is a 76-year-old female lying in bed, in no acute distress. HEENT: Head is normocephalic, atraumatic. Neck: Supple. No JVD noted. No carotid bruits. Cardiovascular: S1, S2 heard. No murmurs, gallops, or rubs. Regular rate and rhythm. Respiratory: Clear bilaterally to auscultation. No work of breathing or using accessory muscles. Abdomen: Soft. Tender to palpation in the left upper quadrant. Splenomegaly clearly noted. Extremities: No clubbing, cyanosis, or edema. Peripheral pulses present in both legs. Neurological: The patient is alert and oriented x3. Moves 4 extremities. LABORATORY DATA: White cell count 339.2 with hemoglobin 9, platelets 93,000. BMP shows potassium 3.3. ASSESSMENT AND PLAN: 1. Chronic myeloid leukemia. Patient is on hydroxyurea 1 g twice daily and white cell count is slowly coming down. We will continue with the same management. 2. Dr. Parisi is following this patient. 3. Bleeding. No more signs of GI bleeding. No vomiting blood. Hemoglobin is stable so far. 4. Hypertension. We will continue with the same medication. 5. Severe abdominal pain secondary to splenomegaly. Now the pain is controlled with Dilaudid 1 mg q.3 hours. We will prescribe oral pain medication when she is ready to go. cc: Sree Brown MD
[2017-01-19] MEDS: DULCOLAX PR SCH (00:19)
[2017-01-19] MEDS: NS 1,000 ML IV SCH ×2 (00:21→08:09)
[2017-01-19] MEDS: DILAUDID IV PRN ×4 (00:31→10:02)
[2017-01-19] MEDS: PHENERGAN IV PRN ×2 (03:55→09:02)
[2017-01-19] MEDS: PROTONIX IV SCH (03:56)
[2017-01-19 07:02] LABS: HEMATOCRIT 30.9 % (37.0-47.0); MANUAL DIFF NEEDED? YES; MCH 31.7 PG (27-31); MCHC 32.4 g/dL (33-37); MCV 98.1 FL (81-99); MPV 11.7 FL (7.4-10.4); PLT 104 X1000 (130-400); RBC 3.15 XMIL (4.2-5.4)
[2017-01-19 07:15] LABS: AGAP 12; BUN 9 mg/dL (8-22); CALCIUM 8.7 mg/dL (8.8-10.2); CHLORIDE 102 mmol/L (98-107); COSMO 279; POTASSIUM 3.5 mmol/L (3.5-5.1); SODIUM 141 mmol/L (136-145); TCO2 27 mmol/L (25-35)
[2017-01-19 07:22] LABS: BANDS 9 % (0-1); BASO 1 % (0-1); EOS 9 % (1-10); LYMPHS 2 % (21-51); MONO 1 % (1-9); NRBC 1 % (0-0)
[2017-01-19 07:23] LABS: LARGE PLATELETS 1+
[2017-01-19 08:31] VITALS: BP 143/91
[2017-01-19] MEDS: SODIUM CHLORIDE 0.9% INJ SCH (09:02)
[2017-01-19] MEDS: NEURONTIN PO SCH (09:05)
[2017-01-19] MEDS: ZANAFLEX PO SCH (09:05)
[2017-01-19] MEDS: HYDREA PO SCH (09:05)
[2017-01-19] MEDS: CATAPRES PO SCH (09:05)
[2017-01-19] MEDS ORDERED: DILAUDID IV ONE (12:08)
--- NOTE | 2017-01-19 18:11 | PROGRESS NOTE ---
DATE: 01/19/2017 SUBJECTIVE: Patient resting in bed. She complains of some mild discomfort in the epigastric region. Her nausea has improved. She had an EGD done which showed evidence of some gastritis. She denies any vomiting blood. Denies any fevers, rigors or chills. OBJECTIVE: Vital signs: Temperature of 98.1 degrees, pulse rate of 80, respiratory rate 20, blood pressure 140/91, saturating 94% room air. General Appearance: Moderately built, moderately malnourished, lying in bed, in no acute distress. HEENT: Mild pallor. No icterus. Neck: Supple. Abdomen: Splenomegaly noted. No hepatomegaly noted. Bowel sounds heard, no guarding or rebound. Extremities: No cyanosis, clubbing, edema. Neurologic: She is alert, awake, oriented. LABORATORY AND IMAGING: Hemoglobin and hematocrit are 10 and 13.9, white count of 351.36. Platelet count of 104,000. Sodium 141, potassium 3.5, chloride 102, bicarb 27, anion gap 12, BUN of 9, creatinine 0.8, glucose of 90. Calcium 8.7. EGD results showed mild esophagitis otherwise normal. IMPRESSION AND PLAN: 1. Chronic myeloid leukemia. She is being followed by Dr. Cely Parisi. She is on hydroxyurea 1000 mg twice daily. 2. Abdominal pain I think is secondary to splenomegaly and hepatomegaly, these are secondary to chronic myeloid leukemia, so with continuing treatments of chronic myeloid leukemia, her splenomegaly and hepatomegaly should improved. 3. Hematemesis, now resolved. Her nausea is better. She will continue on Prilosec once daily for next 30-60 days and then wean down to Zantac 150 mg p.o. b.i.d. She will continue to follow gastroesophageal reflux life changes. 4. The patient was also counseled to quit smoking. 5. Anemia. She will benefit from Iron C b.i.d. and multivitamin once daily. 6. Thrombocytopenia which is secondary to chronic myeloid leukemia, currently stable. We will watch for now. 7. Gallstones. If patient continues to have abdominal pain, then she may need to be evaluated for HIDA scan and possible cholecystectomy. I discussed the plan of care with the patient and also with Dr. Cely Parisi. cc: Demetris Gonzalez MD
--- NOTE | 2017-01-20 07:33 | DISCHARGE SUMMARY ---
ADMISSION DATE: 01/14/2017 DISCHARGE DATE: 01/19/2017 CONSULTATIONS: Dr. Weinstein with oncology, Dr. Gonzalez with gastroenterology. PERTINENT PROCEDURES: 1. Right arm venous Doppler showed no evidence of deep or superficial venous thrombosis. 2. EGD showed mild esophagitis, otherwise normal. No evidence of fresh blood or old blood. DISCHARGE DIAGNOSES: 1. Chronic myeloid leukemia. The patient will continue on hydroxyurea 1 g twice daily. White count continues to slowly reduce. She will continue to follow up with Dr. Weinstein. Known for medical noncompliance. 2. Medical noncompliance with chronic myeloid leukemia medications. 3. Questionable upper gastrointestinal bleed. However, patient had an esophagogastroduodenoscopy that showed only mild gastritis. No signs of fresh or old blood. 4. Hypertension. Patient will continue on clonidine. 5. Severe abdominal pain secondary to splenomegaly. Will continue on oral medication. Stable. HOSPITAL COURSE: Ms. Maurice is a 26-year-old female with a history of CML with noncompliance and hypertension. Presented to the ED with a several day history of abdominal pain. She states that the pain was worsening and that she could not tolerate it. She was admitted for supportive treatment with IV fluids, antiemetics, and pain control, with a consult with her oncologist. She was known to Dr. Weinstein, on Hydrea, Lamarycel in the past with significant noncompliance. She has been admitted to [facility] multiple times secondary to massive splenomegaly with severe abdominal pain and significant leukocytosis. Again, she was continued on Hydrea. Monitored her white counts daily. Her splenomegaly was massive and unchanged. She was encouraged to continue precautions to include no activity that would increase the risk of injury to her abdomen. She did complain of 1 episode of vomiting with hematemesis. She was started on Protonix and an EGD was scheduled. They only found mild gastritis. No old or fresh blood was found. She has not required any transfusions. Dr. Chávez has talked with her oncologist. They feel that she is appropriate for discharge home today on p.o. medications as well as her medications for her CML and followup with Dr. Weinstein. VITAL SIGNS: Temperature is 98.1 degrees, heart rate 80, respirations 20, blood pressure is 143/91, O2 is 94% on room air. DISCHARGE DIET: GI soft. DISCHARGE MEDICATIONS: 1. Klonopin 1 mg p.o. b.i.d. p.r.n. 2. Catapres 0.2 mg p.o. t.i.d. 3. Neurontin 600 mg p.o. t.i.d. 4. Hydrea 1000 mg p.o. b.i.d. 5. Endocet 10/325 one each p.o. q.8 hours p.r.n. 6. Tizanidine 4 mg p.o. b.i.d. FOLLOWUP: Ms. Maurice is being discharged home. She will need to follow up with Dr. Weinstein in 1 week. Again, she has been educated on medical compliance with her medications as well as avoidance of any activity that would increase her risk of injury to her abdomen. She will return to the ED for any worsening of symptoms. DISCHARGE TIME: 30 minutes. Dictated by LONG Hanley for Sree Brown MD cc: Sree Brown MD
== END 2017-01-19 13:16 | disposition home or self-care (01) ==
LOC: ED 14:48 → SUATTDRO 22:23 → 3N 22:23
PROVIDERS: ATTEND Internal Medicine